=== PATIENT | male | born 1960 | race Caucasian/White ===

== ENCOUNTER 2016-12-13 01:47 | Emergency (ER) | payer SELFPAY ==
[2016-12-13] MEDS ORDERED: ONDANSETRON HCL INJ/PF 4 MG/2 ML SDV IV ONE (04:05)
[2016-12-13] MEDS ORDERED: MORPHINE SULFATE 10 MG/ML INJ IV ONE ×3 (04:05→08:21)
[2016-12-13] MEDS ORDERED: NORMAL SALINE 1000 ML 1,000 ML IV ONE (04:05)
--- NOTE | 2016-12-13 04:09 | ER Document Report ---
ED General - General Chief Complaint: Constipation Stated Complaint: ABDOMINAL PAIN Time Seen by Provider: 12/13/16 03:59 Notes: Patient is a 56-year-old male presents with complaint of abdominal pain and feels as if his ostomy is obstructed again. He has history of an ostomy that was placed 5 years ago. He says that he had surgery at [facility]. He is unsure exactly the reason why the surgery was performed. He had complications afterwards and developed an ostomy. Patient then moved to [place]. He has been living in [place] for several years. He had a obstruction performed twice wipe in [place]. One time it was relieved with NG tube and admission. The other time he had to have revision of his colostomy due to a hernia that was causing obstruction. That revision was performed 1 year ago. He has been doing well until last 24 hours. The last 24 hours she has developed a lot of abdominal distention and vomiting and pain and says he feels as if he is obstructed again. He denies any fevers. No blood in ostomy bag. No other complaints at this time. TRAVEL OUTSIDE OF THE [place] IN LAST 30 DAYS: No - Related Data Allergies/Adverse Reactions: No Known Allergies Allergy (Unverified 12/13/16 01:57) Past Medical History - Social History Smoking Status: Unknown if Ever Smoked Frequency of alcohol use: None Drug Abuse: None Family History: Reviewed & Not Pertinent Patient has suicidal ideation: No Patient has homicidal ideation: No Renal/ Medical History: Denies: Hx Peritoneal Dialysis Review of Systems - Review of Systems Notes: My Normal Review Basic REVIEW OF SYSTEMS: CONSTITUTIONAL : Denies fever, chills, or sweats. Denies recent illness. CARDIOVASCULAR: Denies chest pain. RESPIRATORY: Denies cough, cold, or chest congestion. Denies shortness of breath, difficulty breathing, or wheezing. GASTROINTESTINAL: Moderate abdominal pain. Vomiting. MUSCULOSKELETAL: Denies neck or back pain or joint pain or swelling. SKIN: Denies rash or skin lesions. NEUROLOGICAL: Denies altered mental status or loss of consciousness. Denies headache. Denies weakness or paralysis or loss of use of either side. Denies problems with gait or speech. Denies sensory or motor loss. ALL OTHER SYSTEMS REVIEWED AND NEGATIVE. Physical Exam - Vital signs Vitals: Temp Pulse Resp BP Pulse Ox 97.7 F 73 20 137/93 H 100 12/13/16 01:55 12/13/16 01:55 12/13/16 01:55 12/13/16 01:55 12/13/16 01:55 - Notes Notes: General Appearance: Well nourished, alert, cooperative, no acute distress, mild to moderate obvious discomfort. Vitals: reviewed, See vital signs table. Head: no swelling or tenderness to the head Eyes: PERRL, EOMI, Conjuctiva clear Mouth: No decreasd moisture Lungs: No wheezing, No rales, No rhonci, No accessory muscle use, good air exchange bilaterally. Heart: Normal rate, Regular rythm, No murmur, no rub Abdomen: Patient does have abdominal distention that is mainly near the colostomy itself. Patient does have colostomy on the right side of the abdomen. He does have liquid stool coming from the colostomy. There is no obvious blood in the colostomy bag. Does have pain to palpation just medial to colostomy bag where his distention is. Abdomen is not firm. Extremities: strength 5/5 in all extremities, good pulses in all extremities, no swelling or tenderness in the extremities, no edema. Skin: warm, dry, appropriate color, no rash Neuro: speech clear, oriented x 3, normal affect, responds appropriately to questions. Course - Re-evaluation Re-evalutation: 12/13/16 06:16 Patient has a small bowel obstruction as expected clinically. I have attempted to place an NG tube however there is just seems to be some obstruction when the NG tube hits around 50 cm. I have ordered an x-ray to confirm the current placement of the NG tube. I have called the general surgeon, Dr. Puentes, agrees to come evaluate the patient. 12/13/16 06:36 KUB shows that the NG tube appears to be at the esophageal gastric junction however I am still having difficulty getting it to pass this area. I will speak with the surgeon about this. 12/13/16 06:56 Dr. Puentes did come evaluate the patient. This time he feels that the patient should go back to [facility] where his initial surgery was performed. I have called [facility] and I am awaiting to hear back from the surgeon relations specialist. I talked to Dr. Dhaval Carlin the NG tube and the fact that we are having hard time getting past the GE junction. I also tried to pull back some and pressure for to get past the GE junction. I am still unsuccessful in getting it past the GE junction. 12/13/16 07:[address] speak with Dr. Winkler, general surgeon at [facility], who agrees to accept the patient for transfer. 12/13/16 07:30 Currently his call back and said to be in ED DDD transfer. Patient is accepted by Dr. Winkler for transfer. I did still speak with Dr. Miky Trivedi, ER physician, to make him aware that the patient is coming. Transport will be arranged and patient will be transferred. Informed patient of the transfer and he is understanding and agreeable to it. - Vital Signs Vital signs: Temp Pulse Resp BP Pulse Ox 97.7 F 73 20 137/93 H 100 12/13/16 01:55 12/13/16 01:55 12/13/16 01:55 12/13/16 01:55 12/13/16 01:55 - Laboratory Result Diagrams: 12/13/16 04:37 12/13/16 04:37 Laboratory results interpreted by me: 12/13/16 12/13/16 04:37 04:37 MCV 101 H MCH 35.4 H RDW 14.8 H Seg Neutrophils % 86.1 H Lymphocytes % 6.1 L Absolute Neutrophils 8.7 H Glucose 147 H Direct Bilirubin 0.5 H Discharge - Discharge Clinical Impression: Small bowel obstruction Condition: Stable Disposition: [facility]
[2016-12-13 04:53] LABS: ABSOLUTE EOSINOPHILS # (AUTO) 0.1 10^3/uL (0.0-0.6); ABSOLUTE LYMPHOCYTES (AUTO) 0.6 10^3/uL (0.5-4.7); ABSOLUTE MONOCYTES (AUTO) 0.7 10^3/uL (0.1-1.4); ABSOLUTE NEUT (AUTO) 8.7 10^3/uL (1.7-8.2); BASOPHILS % (AUTO) 0.4 % (0-2); EOSINOPHILS % (AUTO) 0.8 % (0-6); HEMOGLOBIN 15.4 g/dL (13.5-17.0); HGB HCT DIFFERENCE 2.2; LYMPHOCYTES % (AUTO) 6.1 % (13-45); MEAN CORPUSCULAR HEMOGLOBIN 35.4 pg (27.0-33.4); MEAN CORPUSCULAR HGB CONC 35.1 g/dL (32.0-36.0); MEAN CORPUSCULAR VOLUME 101 fl (80-97); MONOCYTES % (AUTO) 6.6 % (3-13); RED BLOOD COUNT 4.35 10^6/uL (4.35-5.55); RED CELL DISTRIBUTION WIDTH 14.8 % (11.5-14.0); SEGMENTED NEUTROPHILS % (AUTO) 86.1 % (42-78); WHITE BLOOD COUNT 10.2 10^3/uL (4.0-10.5)
[2016-12-13 05:03] LABS: ALANINE AMINOTRANSFERASE 53 U/L (21-72); ALBUMIN 4.6 g/dL (3.5-5.0); ALKALINE PHOSPHATASE 60 U/L (38-126); ANION GAP 14 (5-19); ASPARTATE AMINO TRANSFERASE 45 U/L (17-59); BILIRUBIN,DIRECT 0.5 mg/dL (0.0-0.4); BLOOD UREA NITROGEN 13 mg/dL (7-20); CALCIUM 10.1 mg/dL (8.4-10.2); CARBON DIOXIDE 24 mmol/L (22-30); CHLORIDE 100 mmol/L (98-107); CREATININE RESULT 1.12 mg/dL (0.52-1.25); GLUCOSE 147 mg/dL (75-110); POTASSIUM 4.5 mmol/L (3.6-5.0); SODIUM 137.6 mmol/L (137-145)
[2016-12-13] MEDS ORDERED: LIDOCAINE 2% JELLY 30 ML TUBE TOP ONE (05:43)
[2016-12-13] MEDS ORDERED: LIDOCAINE 2% INJ-PF (20 MG/ML) 10 ML AMPUL NEB ONE (05:44)
--- NOTE | 2016-12-13 06:00 | RADIOLOGY REPORT (SQ) ---
EXAM DESCRIPTION: CT ABD/PELVIS WITH IV ONLY COMPLETED DATE/TIME: 12/13/2016 5:38 am REASON FOR STUDY: abdominal pain, possible obstruction COMPARISON: None. TECHNIQUE: CT scan of the abdomen and pelvis performed using helical scanning technique with dynamic intravenous contrast injection. No oral contrast. Images reviewed with lung, soft tissue, and bone windows. Reconstructed coronal and sagittal MPR images reviewed. Delayed images for evaluation of the urinary system also acquired. All images stored on PACS. All CT scanners at this facility use dose modulation, iterative reconstruction, and/or weight based d osing when appropriate to reduce radiation dose to as low as reasonably achievable (ALARA). [facility]: Dose Right [facility]: CareDose [facility]: Dose Right [facility]: Teradose 4D [facility]: [employer] CONTRAST TYPE AND DOSE: contrast/concentration: Isovue 370.00 mg/ml; Total Contrast Delivered: 65.0 ml; Total Saline Delivered: 65.0 ml RENAL FUNCTION: Creatinine 1.1. RADIATION DOSE: Up-to-date CT equipment and radiation dose reduction techniques were employed. CTDIv ol: 5.8 mGy. DLP: 605 mGy-cm.. LIMITATIONS: None. FINDINGS: LOWER CHEST: No significant findings. No nodules or infiltrates. LIVER: Normal size. No masses. No dilated ducts. SPLEEN: Normal size. No focal lesions. PANCREAS: No masses. No significant calcifications. No adjacent inflammation or peripancreatic fluid collections. Pancreatic duct not dilated. GALLBLADDER: No identified stones by CT criteria. No inflammatory changes to suggest cholecystitis. ADRENAL GLANDS: No significant masses or asymmetry. RIGHT KIDNEY AND URETER: No solid masses. No significant calcifications. No hydronephrosis or hyd roureter. LEFT KIDNEY AND URETER: No solid masses. No significant calcifications. No hydronephrosis or hydr oureter. AORTA AND VESSELS: No aneurysm. No dissection. Renal arteries, SMA, celiac without stenosis. RETROPERITONEUM: No retroperitoneal adenopathy, hemorrhage or masses. BOWEL AND PERITONEAL CAVITY: 6.3 cm in diameter fluid distention extensively of the small bowel with air-fluid levels. No zone of transition is identified. Bowel ostium knee of the right lower abdomin al quadrant, likely ileum. APPENDIX: Normal. PELVIS: No mass. No free fluid. Normal bladder. ABDOMINAL WALL: No masses. Small left inguinal herniation involves only fat. BONES: No significant or acute findings. OTHER: No other significant finding. IMPRESSION: Severe small bowel obstruction pattern. No significant free fluid and no free air. TECHNICAL DOCUMENTATION: JOB ID: [id number] Quality ID # [id number]: Final reports with documentation of one or more dose reduction techniques (e.g., Au tomated exposure control, adjustment of the mA and/or kV according to patient size, use of iterative reconstruction technique) 2010 [employer]- All Rights Reserved
[2016-12-13] MEDS ORDERED: MORPHINE SULFATE 10 MG/ML INJ ONE (06:42)
--- NOTE | 2016-12-13 06:59 | RADIOLOGY REPORT (SQ) ---
EXAM DESCRIPTION: KUB/ABDOMEN (SINGLE VIEW) COMPLETED DATE/TIME: 12/13/2016 6:38 am REASON FOR STUDY: ng placement COMPARISON: None. NUMBER OF VIEWS: One view. TECHNIQUE: Supine radiographic image of the abdomen acquired. LIMITATIONS: None. FINDINGS: BOWEL GAS PATTERN: Normal bowel gas pattern. No dilated loops. CALCIFICATIONS: No suspicious calcifications. SOFT TISSUES: No gross mass or suggestion of organomegaly. HARDWARE: Tip of an NG tube is at the expected gastroesophageal junction ; consider 5 cm advancement. Small bowel obstruction pattern with diameters measuring up to 6.1 cm in the left paracentral abdom en. BONES: No acute fracture. No worrisome bone lesions. Mild osteoarthritis. OTHER: Retained contrast within the urinary bladder. IMPRESSION: Small bowel obstruction pattern. NG tube tip at the gastroesophageal junction. TECHNICAL DOCUMENTATION: JOB ID: [id number] [employer]- All Rights Reserved
--- NOTE | 2016-12-13 07:01 | RADIOLOGY REPORT (SQ) ---
EXAM DESCRIPTION: CHEST SINGLE VIEW COMPLETED DATE/TIME: 12/13/2016 6:38 am REASON FOR STUDY: ng placement COMPARISON: None. EXAM PARAMETERS: NUMBER OF VIEWS: One view. TECHNIQUE: Single frontal radiographic view of the chest acquired. RADIATION DOSE: NA LIMITATIONS: As below. FINDINGS: LUNGS AND PLEURA: No opacities, masses or pneumothorax. No pleural effusion. Left costoph renic angle is clipped off the image. MEDIASTINUM AND HILAR STRUCTURES: No masses. Contour normal. HEART AND VASCULAR STRUCTURES: Heart normal in size. Normal vasculature. BONES: No acute findings. HARDWARE: Tip of an NG tube is at the gastroesophageal junction, partially obscured ; consider 6 cm a dvancement. OTHER: No other significant finding. IMPRESSION: NG tube tip at the gastroesophageal junction. Limitation. TECHNICAL DOCUMENTATION: JOB ID: [id number]
[2016-12-13 10:21] VITALS: BP 103/71
== END 2016-12-13 10:22 | disposition short-term general hospital (02) ==
LOC: ER 01:47
DX: K56.60 Unspecified intestinal obstruction (principal); K59.00 Constipation, unspecified; R10.9 Unspecified abdominal pain; Z98.890 Other specified postprocedural states
CPT/HCPCS: 96376; 99285; 96361; 96374; 96375; 36415; 83605; 85025; 80053; 71010; 74000; 74177; J2270; J2405; J7030; J3490

== ENCOUNTER 2017-03-27 08:23 | Inpatient (IN) | payer MEDICAID ==
--- NOTE | 2017-03-27 08:37 | ER Document Report ---
ED General - General Stated Complaint: ABDOMINAL PAIN Time Seen by Provider: 03/27/17 08:37 Mode of Arrival: Medic Information source: Patient, Relative - osito Notes: 56 yo male brought in by EMS due to falling face forward in living room, osito heard the thud, and found him foaming at the mouth not responsive with both arms flexed inward. Before she had gone into the kitchen he had clutched is chest and stated it hurt into his left shoulder. She states he drinks all day long every day. He says 1 beer this morning. No vomiting or diarrhea, rilq colostomy bag with green stool in it. Hx CVA left sided weakness 5 years ago. c/ o epigartic abdominal pain and mid thoracic back pain. TRAVEL OUTSIDE OF THE [place] IN LAST 30 DAYS: No - Related Data Allergies/Adverse Reactions: No Known Allergies Allergy (Verified 03/27/17 09:14) Home Medications: Current Home Medications No Home Medications 03/27/17 [History] Past Medical History - General Information source: Patient, Relative - osito - Social History Smoking Status: Current Every Day Smoker Frequency of alcohol use: Heavy Drug Abuse: None Lives with: Family - osito Family History: Reviewed & Not Pertinent Neurological Medical History: Reports: Hx Cerebrovascular Accident - 5 yr ago Renal/ Medical History: Denies: Hx Peritoneal Dialysis GI Medical History: Reports: Other - bowel obstructions, colostomy Psychiatric Medical History: Reports: Hx Depression Past Surgical History: Reports: Hx Bowel Surgery Review of Systems - Review of Systems Constitutional: No symptoms reported EENT: No symptoms reported Cardiovascular: No symptoms reported Respiratory: No symptoms reported Gastrointestinal: No symptoms reported Genitourinary: No symptoms reported Male Genitourinary: No symptoms reported Musculoskeletal: See HPI Skin: No symptoms reported Hematologic/Lymphatic: No symptoms reported Neurological/Psychological: See HPI Physical Exam - Vital signs Vitals: Temp Pulse Resp BP Pulse Ox 97.6 F 110 H 28 H 145/93 H 96 03/27/17 08:32 03/27/17 08:32 03/27/17 08:32 03/27/17 08:32 03/27/17 08:32 Interpretation: Tachycardic - Notes Notes: chronically ill appearing, disheveled - General General appearance: Appears well, Lethargic In distress: None - HEENT Head: Normocephalic, Atraumatic, Other - ecchyosis left temporal face, dried blood both lips Eyes: Normal Conjunctiva: No: Normal Pupils: PERRL Mouth/Lips: Other - dried blood on lips, decayed teeth non loose, can't find source of blood on lips and tongue, pt won't stick out tongue Mucous membranes: Dry Pharynx: Blood in hypopharynx Neck: Supple - non tender - Respiratory Respiratory status: No respiratory distress Chest status: Nontender Breath sounds: Normal Chest palpation: Normal - Cardiovascular Rhythm: Regular Heart sounds: Normal auscultation Murmur: No - Abdominal Inspection: Normal, Other - old scars, colostomy rlq Distension: No distension Bowel sounds: Normal Tenderness: Nontender. No: Tender Organomegaly: No organomegaly - Back Back: Normal, Tender - t8-8 spinous process. No: Deformity/step-off - Extremities General upper extremity: Normal inspection, Nontender, Normal color, Normal ROM , Normal temperature General lower extremity: Normal inspection, Nontender, Normal color, Normal ROM , Normal temperature, Normal weight bearing. No: Joi's sign - Neurological Neuro grossly intact: Yes Cognition: Normal Orientation: AAOx4 Deloris Coma Scale Eye Opening: Spontaneous Deloris Coma Scale Verbal: Oriented Easton Coma Scale Motor: Obeys Commands Easton Coma Scale Total: 15 Speech: Normal Motor strength normal: LUE, RUE, LLE, RLE Sensory: Normal - Psychological Associated symptoms: Normal affect, Normal mood - Skin Skin Temperature: Warm Skin Moisture: Dry Skin Color: Other - niraj Course - Re-evaluation Re-evalutation: 03/27/17 09:[address] Gautam the radiologist to read the CT scan and thinks that the nonhemorrhagic infarct in the left MCA is old which is consistant with the EMS report of old cva 03/27/17 10:59 pt refuses cath urine, c/o mid t spine pain since fall, he is more alert. only 1 beer this am. consulting with dr. lawson for further orders, to determiine the anion gap. called dr. goetz who read the AAS to check on t spine shantell evaluation. 03/27/17 11:01 2nd liter of NS infusing. 03/27/17 12:[address] green for admission, she wants repeat BNP and ABG before determining what admission bed he will need. 03/27/17 13:32 spoke with his neice [phone] who states he is alcoholic, no hx seizures ( she thinks it looks like a seizure this am-foaming at mouth, not responding to voice, shaking extremities) 03/27/17 15:[address] Harry back and she said IMCU bed which has been put on the bed board - Vital Signs Vital signs: Temp Pulse Resp BP Pulse Ox 98.9 F 85 20 134/86 H 94 03/27/17 19:58 03/27/17 19:58 03/27/17 19:58 03/27/17 19:58 03/27/17 19:58 - Laboratory Result Diagrams: 03/27/17 08:55 03/27/17 14:15 Laboratory results interpreted by me: 03/27/17 03/27/17 03/27/17 08:55 08:55 08:55 WBC 20.0 H MCV 104 H MCH 34.2 H Seg Neuts % (Manual) 89 H Lymphocytes % (Manual) 4 L Abs Neuts (Manual) 18.4 H PT 16.0 H APTT 36.9 H Carbonic Acid ABG pH ABG pCO2 ABG pO2 ABG HCO3 ABG Total CO2 VBG pH VBG HCO3 Chloride Carbon Dioxide 7 L* Anion Gap 30 H Creatinine 1.50 H Est GFR ( Amer) 59 L Est GFR (Non-Af Amer) 49 L Glucose 167 H Lactic Acid Calcium Magnesium Ammonia Urine Protein Urine Blood Urine Osmolality Salicylates 03/27/17 03/27/17 03/27/17 08:55 08:55 10:26 WBC MCV MCH Seg Neuts % (Manual) Lymphocytes % (Manual) Abs Neuts (Manual) PT APTT Carbonic Acid ABG pH ABG pCO2 ABG pO2 ABG HCO3 ABG Total CO2 VBG pH VBG HCO3 Chloride Carbon Dioxide Anion Gap Creatinine Est GFR ( Amer) Est GFR (Non-Af Amer) Glucose Lactic Acid 5.0 H Calcium Magnesium 3.0 H Ammonia Urine Protein Urine Blood Urine Osmolality Salicylates < 1.0 L 03/27/17 03/27/17 03/27/17 11:18 11:18 11:25 WBC MCV MCH Seg Neuts % (Manual) Lymphocytes % (Manual) Abs Neuts (Manual) PT APTT Carbonic Acid ABG pH ABG pCO2 ABG pO2 ABG HCO3 ABG Total CO2 VBG pH 7.20 L VBG HCO3 14.5 L Chloride Carbon Dioxide Anion Gap Creatinine Est GFR ( Amer) Est GFR (Non-Af Amer) Glucose Lactic Acid Calcium Magnesium Ammonia Urine Protein 30 H Urine Blood MODERATE H Urine Osmolality 268 L Salicylates 03/27/17 03/27/17 03/27/17 11:25 13:55 14:15 WBC MCV MCH Seg Neuts % (Manual) Lymphocytes % (Manual) Abs Neuts (Manual) PT APTT Carbonic Acid 0.86 L ABG pH 7.32 L ABG pCO2 28.7 L ABG pO2 77.0 L ABG HCO3 14.4 L ABG Total CO2 15.3 L VBG pH VBG HCO3 Chloride 115 H Carbon Dioxide 15 L Anion Gap Creatinine Est GFR ( Amer) Est GFR (Non-Af Amer) Glucose Lactic Acid Calcium 7.9 L Magnesium Ammonia < 8.7 L Urine Protein Urine Blood Urine Osmolality Salicylates - EKG Interpretation by Co EKG shows normal: Sinus rhythm Rate: Tachycardia Rhythm: NSR Additional EKG results interpreted by ia: 03/27/17 09:57 qtc [id number] Discharge - Discharge Clinical Impression: High anion gap metabolic acidosis, sepsis, left apical cavity lung mass, right lung spiculated nodule Syncope Qualifiers: Syncope type: unspecified Qualified Code(s): R55 - Syncope and collapse Leukocytosis Qualifiers: Leukocytosis type: unspecified Qualified Code(s): D72.829 - Elevated white blood cell count, unspecified Compression fx, thoracic spine Qualifiers: Encounter type: initial encounter Fracture type: closed Qualified Code(s): S22.000A - Wedge compression fracture of unspecified thoracic vertebra, initial encounter for closed fracture Condition: Fair Disposition: ADMITTED INPATIENT Admitting Provider: Hospitalist Unit Admitted: [facility]
[2017-03-27] MEDS ORDERED: NORMAL SALINE 1000 ML 500 ML IV ONE (08:38)
[2017-03-27] MEDS ORDERED: ONDANSETRON HCL INJ/PF 4 MG/2 ML SDV IV ONE (08:39)
[2017-03-27] MEDS ORDERED: DIPH/PERTUSS(ACELL)/TETANUS VAC/PF 0.5 ML SYR (>=10YO) IM ONE (08:50)
--- NOTE | 2017-03-27 09:23 | EKG REPORT ---
SEVERITY:- OTHERWISE NORMAL ECG - SINUS TACHYCARDIA : Confirmed by: Komal Diaz 27-Mar-2017 09:22:53
[2017-03-27 09:27] LABS: HEMATOCRIT 49.8 % (37.9-51.0); HEMOGLOBIN 16.5 g/dL (13.5-17.0); MEAN CORPUSCULAR HEMOGLOBIN 34.2 pg (27.0-33.4); MEAN CORPUSCULAR HGB CONC 33.1 g/dL (32.0-36.0); MEAN CORPUSCULAR VOLUME 104 fl (80-97); PLATELET COUNT 249 10^3/uL (150-450); RED BLOOD COUNT 4.81 10^6/uL (4.35-5.55); RED CELL DISTRIBUTION WIDTH 13.5 % (11.5-14.0)
[2017-03-27 09:35] LABS: PARTIAL THROMBOPLASTIN TIME 36.9 SEC (23.5-35.8)
[2017-03-27 09:40] LABS: ALANINE AMINOTRANSFERASE 41 U/L (21-72); ALBUMIN 4.7 g/dL (3.5-5.0); ALKALINE PHOSPHATASE 97 U/L (38-126); ASPARTATE AMINO TRANSFERASE 44 U/L (17-59); BILIRUBIN,DIRECT 0.4 mg/dL (0.0-0.4); BILIRUBIN,TOTAL 0.4 mg/dL (0.2-1.3); BLOOD UREA NITROGEN 13 mg/dL (7-20); CALCIUM 9.5 mg/dL (8.4-10.2); CHLORIDE 107 mmol/L (98-107); CREATINE KINASE 146 U/L (55-170); GLUCOSE 167 mg/dL (75-110); LIPASE 141.1 U/L (23-300); POTASSIUM 3.7 mmol/L (3.6-5.0); TOTAL PROTEIN 8.2 g/dL (6.3-8.2)
[2017-03-27 09:41] LABS: ALCOHOL < 10 mg/dL (NONE DETECTED)
[2017-03-27 09:50] LABS: CREATINE KINASE MB 2.38 ng/mL (<4.55)
[2017-03-27 09:51] LABS: ABSOLUTE LYMPHOCYTES# (MANUAL) 0.8 10^3/uL (0.5-4.7); ABSOLUTE MONOCYTES # (MANUAL) 0.6 10^3/uL (0.1-1.4); ABSOLUTE NEUTROPHILS# (MANUAL) 18.4 10^3/uL (1.7-8.2); BAND NEUTROPHILS % (MANUAL) 3 % (3-5); BASOPHILS % (MANUAL) 0 % (0-2); EOSINOPHILS % (MANUAL) 1 % (0-6); LYMPHOCYTES % (MANUAL) 4 % (13-45); MONOCYTES % (MANUAL) 3 % (3-13); SEGMENTED NEUTROPHILS % (MAN) 89 % (42-78); TOTAL CELLS COUNTED 100
[2017-03-27 09:52] LABS: PLATELET COMMENT ADEQUATE; TOXIC GRANULATION SLIGHT
[2017-03-27 09:53] LABS: TROPONIN I < 0.012 ng/mL
--- NOTE | 2017-03-27 09:53 | RADIOLOGY REPORT (SQ) ---
EXAM DESCRIPTION: CT HEAD WITHOUT COMPLETED DATE/TIME: 03/27/2017 9:42 am REASON FOR STUDY: fall COMPARISON: None. TECHNIQUE: Axial images acquired through the brain without intravenous contrast. Images reviewed wi th bone, brain and subdural windows. Images stored on PACS. All CT scanners at this facility use dose modulation, iterative reconstruction, and/or weight based d osing when appropriate to reduce radiation dose to as low as reasonably achievable (ALARA). [facility]: Dose Right [facility]: CareDose [facility]: Dose Right [facility]: Teradose 4D [facility]: [employer] RADIATION DOSE: CT Rad equipment meets quality standard of care and radiation dose reduction techniq ues were employed. CTDIvol: 63.6 mGy. DLP: 1163 mGy-cm. mGy. LIMITATIONS: None. FINDINGS: VENTRICLES: Normal size and contour. CEREBRUM: Geographic low attenuation in the left MCA territory, more extensive in the left parietal l obe. No evidence of hemorrhage or mass effect. There is ipsilateral enlargement of the left occipita l horn suggesting more chronic infarction. No extra-axial fluid collection. CEREBELLUM: No masses. No hemorrhage. No alteration of density. No evidence for acute infarction. EXTRAAXIAL SPACES: No fluid collections. No masses. ORBITS AND GLOBE: No intra- or extraconal masses. Normal contour of globe without masses. CALVARIUM: No fracture. PARANASAL SINUSES: No fluid or mucosal thickening. SOFT TISSUES: No mass or hematoma. OTHER: No other significant finding. IMPRESSION: Large subacute/ chronic nonhemorrhagic infarct left MCA territory. EVIDENCE OF ACUTE STROKE: See above. LEFT MCA COMMENT: Quality ID # [id number]: Final reports with documentation of one or more dose reduction techniques (e.g., Automated exposure control, adjustment of the mA and/or kV according to patient size, use of iterative reconstruction technique) TECHNICAL DOCUMENTATION: JOB ID: [id number] [employer]- All Rights Reserved
[2017-03-27 10:03] LABS: ANION GAP 30 (5-19)
[2017-03-27 10:05] LABS: CARBON DIOXIDE 7 mmol/L (22-30)
[2017-03-27] MEDS ORDERED: NORMAL SALINE 1000 ML 1,000 ML IV ONE ×3 (10:06→10:13)
--- NOTE | 2017-03-27 10:32 | RADIOLOGY REPORT (SQ) ---
EXAM DESCRIPTION: ACUTE ABDOMEN SERIES COMPLETED DATE/TIME: 03/27/2017 9:48 am REASON FOR STUDY: epigastric abd pain COMPARISON: None. NUMBER OF VIEWS: Three views. TECHNIQUE: supine abdomen and upright/decubitus abdomen radiographic images acquired. LIMITATIONS: Difficulty positioning. FINDINGS: CHEST; nothing acute. The lungs are clear. FREE AIR: None. No abnormal gas collections. BOWEL GAS PATTERN: Nonobstructive pattern. No dilated loops or air fluid levels. CALCIFICATIONS: Aortic calcification without obvious aneurysm. HARDWARE: Colostomy right lower abdomen. SOFT TISSUES: No gross mass or suggestion of organomegaly. BONES: No acute fracture. No worrisome bone lesions. OTHER: None. IMPRESSION: Nothing acute. No bowel dilatation. Small amount of fecal material. TECHNICAL DOCUMENTATION: JOB ID: [id number] [employer]- All Rights Reserved
[2017-03-27] MEDS ORDERED: MORPHINE SULFATE 10 MG/ML INJ IV ONE ×2 (10:59→11:43)
[2017-03-27] MEDS ORDERED: CEFTRIAXONE 1 GM/D5W RTU 1 GM/50 ML RTUPB IV ONE (11:02)
[2017-03-27 11:36] LABS: APPEARANCE,URINE SLIGHTLY-CLOUDY; BILIRUBIN,URINE NEGATIVE (NEGATIVE); COLOR,URINE YELLOW; GLUCOSE, URINE NEGATIVE (NEGATIVE); KETONES,URINE NEGATIVE (NEGATIVE); LEUKOCYTE ESTERASE,URINE NEGATIVE (NEGATIVE); NITRITE,URINE NEGATIVE (NEGATIVE); PROTEIN,URINE 30 mg/dL (NEGATIVE); URINE SPECIFIC GRAVITY 1.005; UROBILINOGEN,URINE NEGATIVE mg/dL (<2.0)
[2017-03-27 11:40] LABS: VENOUS BLOOD BASE EXCESS -12.7 mmol/L; VENOUS BLOOD HCO3 14.5 mmol/L (20-32); VENOUS BLOOD PCO2 37.9 mmHg (35-63); VENOUS BLOOD PH 7.2 (7.30-7.42)
[2017-03-27 11:52] LABS: URINE AMPHETAMINES SCREEN NEGATIVE; URINE BARBITURATES SCREEN NEGATIVE; URINE BENZODIAZEPINES SCREEN NEGATIVE; URINE COCAINE SCREEN NEGATIVE; URINE MARIJUANA (THC) SCREEN NEGATIVE; URINE METHADONE SCREEN NEGATIVE; URINE PHENCYCLIDINE SCREEN NEGATIVE
--- NOTE | 2017-03-27 12:20 | RADIOLOGY REPORT (SQ) ---
EXAM DESCRIPTION: CT THORACIC SPINE WITHOUT COMPLETED DATE/TIME: 03/27/2017 11:42 am REASON FOR STUDY: back pain after fall COMPARISON: None. TECHNIQUE: Axial images acquired through the thoracic spine without intravenous contrast. Images re viewed with lung, soft tissue and bone windows. Reconstructed coronal and sagittal MPR images review ed. Images stored on PACS. All CT scanners at this facility use dose modulation, iterative reconstruction, and/or weight based d osing when appropriate to reduce radiation dose to as low as reasonably achievable (ALARA). [facility]: Dose Right [facility]: CareDose [facility]: Dose Right [facility]: Teradose 4D [facility]: [employer] RADIATION DOSE: CT Rad equipment meets quality standard of care and radiation dose reduction techniq ues were employed. CTDIvol: 18.1 mGy. DLP: 759 mGy-cm. mGy. LIMITATIONS: None. FINDINGS: Bones are osteopenic. There is a compression fracture of T9 approximately 50% height loss . No significant retropulsion. Alignment is anatomic. There is a 3.1 x 4.0 cm cavitary mass in the left apex. 1.5 cm spiculated nodule in the right upper lobe. IMPRESSION: 1. Recent compression fracture of T9. 2. Left apical lung mass. TECHNICAL DOCUMENTATION: JOB ID: [id number] Quality ID # [id number]: Final reports with documentation of one or more dose reduction techniques (e.g., Au tomated exposure control, adjustment of the mA and/or kV according to patient size, use of iterative reconstruction technique) 2010 [employer]- All Rights Reserved
[2017-03-27 14:36] LABS: ANION GAP 10 (5-19); BLOOD UREA NITROGEN 12 mg/dL (7-20); CALCIUM 7.9 mg/dL (8.4-10.2); CARBON DIOXIDE 15 mmol/L (22-30); CHLORIDE 115 mmol/L (98-107); GLUCOSE 99 mg/dL (75-110); POTASSIUM 3.7 mmol/L (3.6-5.0); SODIUM 139.9 mmol/L (137-145)
[2017-03-27 15:00] LABS: ARTERIAL BLOOD BASE EXCESS -10.2 mmol/L; ARTERIAL BLOOD FIO2 21%; ARTERIAL BLOOD H2CO3 0.86 mmol/L (1.05-1.35); ARTERIAL BLOOD HCO3 14.4 mmol/L (20-26); ARTERIAL BLOOD O2 SATURATION 94.6 % (94-98); ARTERIAL BLOOD PCO2 28.7 mmHg (35-45); ARTERIAL BLOOD PH 7.32 (7.35-7.45); ARTERIAL BLOOD TOTAL CO2 15.3 mmol/L (23-27)
--- NOTE | 2017-03-27 15:13 | PDOC H&P ---
History of Present Illness Patient complains of: Patient fell at home History of Present Illness: CLAYTON LAWSON is a 56 year old male. This morning, he was in the living room. His niece was in another room and heard a thump. When she came to check on the patient he had fallen face down. He was noted to be foaming at the mouth. The patient thought that he had another stroke. Apparently, this happened when he had a stroke 5 years ago. Please note that the patient is a very poor historian. The patient was brought into the emergency department and found to have a leukocytosis, lactic acidosis and non-anion gap metabolic acidosis. He has a fairly new compression fracture and evidence of a left apical lung mass and right upper lobe cavitary lesion. These findings are concerning for malignancy and/or infection to include tuberculosis. Therefore, the patient has been isolated. Apparently, the patient drinks all day long. He told me that he drinks 1 beer once in a while but according to his niece he drinks from 4:00 in the afternoon all throughout the evening. The patient states that he has been very depressed since his stroke. He has had residual right arm weakness. He has trouble understanding and articulating his speech. He lost his job because of the stroke. The patient was born in the [facility]. He has never been in fdc. He does not have any known TB contacts. He has not traveled outside of the [place]. He denies fevers, chills, night sweats, weight loss and hemoptysis. In fact, he denies having a cough at all. Past Medical History Neurological Medical History: Reports: Ischemic CVA Past Surgical History Past Surgical History: Reports: Colostomy Social History Smoking Status: Unknown if Ever Smoked - Advance Directive Resuscitation Status: Do Not Resuscitate Surrogate healthcare decision maker:: The patient told me that he is DO NOT RESUSCITATE. In the event that he is incapacitated he would like his niece, Eugenia to be his decision maker. Family History Family History: Reviewed & Not Pertinent Parental Family History Reviewed: Yes - Unknown Children Family History Reviewed: Unknown Sibling(s) Family History Reviewed.: Unknown - Patient was unable to give me any family history. Medication/Allergy Home Medications: No Home Medications 03/27/17 Allergies/Adverse Reactions: No Known Allergies Allergy (Verified 03/27/17 09:14) Review of Systems Constitutional: ABSENT: as per HPI, anorexia, chills, fatigue, fever(s), headache(s), night sweats, weakness, weight gain, weight loss, other Eyes: ABSENT: as per HPI, visual disturbances, other Ears: ABSENT: as per HPI, hearing changes, other Nose, Mouth, and Throat: ABSENT: as per HPI, headache(s), mouth pain, sore throat, vertigo, other Breasts: ABSENT: as per HPI, other Cardiovascular: ABSENT: as per HPI, chest pain, dyspnea on exertion, edema, orthropnea, palpitations, other Respiratory: ABSENT: as per HPI, cough, dyspnea, hemoptysis, sputum, other Gastrointestinal: ABSENT: as per HPI, abdominal pain, bloating, coffee ground emesis, constipation, diarrhea, dysphagia, heartburn, hematemesis, hematochezia , melena, nausea, vomiting, other Genitourinary: ABSENT: as per HPI, difficulty urinating, dysuria, hematuria, nocturia, other Musculoskeletal: PRESENT: back pain Integumentary: ABSENT: as per HPI, diaphoresis, erythema, lesions, pruritus, rash, wounds, other Neurological: PRESENT: abnormal speech, confusion, lack of coordination, memory loss, weakness Psychiatric: ABSENT: as per HPI, anxiety, depression, hallucinations, homidical ideation, suicidal ideation, other Endocrine: ABSENT: as per HPI, cold intolerance, flushing, heat intolerance, menstrual abnormalities, polydipsia, polyphagia, polyuria, other Hematologic/Lymphatic: ABSENT: as per HPI, easy bleeding, easy bruising, lymphadenopathy, other Allergic/Immunologic: ABSENT: as per HPI, seasonal rhinorrhea, other Physical Exam Vital Signs: Temp Pulse Resp BP Pulse Ox 97.6 F 110 H 23 H 144/89 H 97 03/27/17 08:32 03/27/17 08:32 03/27/17 12:37 03/27/17 12:37 03/27/17 12:37 Intake & Output 03/26/17 03/27/17 03/28/17 06:59 06:59 06:59 Weight 79 kg Additional comments: The patient appears to be much older than the stated age. He is disheveled. He does appear to be in generalized poor health. He is thin but not cachectic. His facial appearance is normal with the exception of dried blood on his lips. Cranial nerves II through XII are intact. His oropharynx demonstrates poor dentition. He also had appears to have some verrucous lesions on the upper palate. The patient's lungs are clear. There are clear anteriorly and posteriorly. His cardiac exam demonstrates a regular rate and rhythm without murmurs, gallops or rubs. The abdomen demonstrates a colostomy bag with stool in it. The abdomen is very soft. Bowel sounds are noted. He does not have guarding or rebound noted and there are no hernias or masses present. The patient's lower extremities are warm to touch. No pitting edema is present. The skin is warm, dry and intact without lesions or rashes. The patient has residual right upper extremity weakness. His sensation appears to be intact. Results Laboratory Results: 03/27/17 08:55 03/27/17 14:15 03/27/17 03/27/17 03/27/17 08:55 08:55 08:55 WBC 20.0 H RBC 4.81 Hgb 16.5 Hct 49.8 MCV 104 H MCH 34.2 H MCHC 33.1 RDW 13.5 Plt Count 249 Seg Neutrophils % Not Reportable Lymphocytes % Not Reportable Monocytes % Not Reportable Eosinophils % Not Reportable Basophils % Not Reportable Absolute Neutrophils Not Reportable Absolute Lymphocytes Not Reportable Absolute Monocytes Not Reportable Absolute Eosinophils Not Reportable Absolute Basophils Not Reportable VBG pH VBG pCO2 VBG HCO3 VBG Base Excess Sodium 144.0 Potassium 3.7 Chloride 107 Carbon Dioxide 7 L* Anion Gap 30 H BUN 13 Creatinine 1.50 H Est GFR ( Amer) 59 L Est GFR (Non-Af Amer) 49 L Glucose 167 H Serum Osmolality Lactic Acid Calcium 9.5 Magnesium 3.0 H Total Bilirubin 0.4 AST 44 ALT 41 Alkaline Phosphatase 97 Ammonia Total Protein 8.2 Albumin 4.7 Lipase 141.1 Urine Color Urine Appearance Urine pH Ur Specific Fields Urine Protein Urine Glucose (UA) Urine Ketones Urine Blood Urine Nitrite Ur Leukocyte Esterase Urine WBC (Auto) Urine RBC (Auto) Urine Osmolality 03/27/17 03/27/17 03/27/17 08:55 10:26 10:26 WBC RBC Hgb Hct MCV MCH MCHC RDW Plt Count Seg Neutrophils % Lymphocytes % Monocytes % Eosinophils % Basophils % Absolute Neutrophils Absolute Lymphocytes Absolute Monocytes Absolute Eosinophils Absolute Basophils VBG pH VBG pCO2 VBG HCO3 VBG Base Excess Sodium Potassium Chloride Carbon Dioxide Anion Gap BUN Creatinine Est GFR ( Amer) Est GFR (Non-Af Amer) Glucose Serum Osmolality Cancelled Lactic Acid Cancelled 5.0 H Calcium Magnesium Total Bilirubin AST ALT Alkaline Phosphatase Ammonia Total Protein Albumin Lipase Urine Color Urine Appearance Urine pH Ur Specific Fields Urine Protein Urine Glucose (UA) Urine Ketones Urine Blood Urine Nitrite Ur Leukocyte Esterase Urine WBC (Auto) Urine RBC (Auto) Urine Osmolality 03/27/17 03/27/17 03/27/17 11:18 11:18 11:25 WBC RBC Hgb Hct MCV MCH MCHC RDW Plt Count Seg Neutrophils % Lymphocytes % Monocytes % Eosinophils % Basophils % Absolute Neutrophils Absolute Lymphocytes Absolute Monocytes Absolute Eosinophils Absolute Basophils VBG pH 7.20 L VBG pCO2 37.9 VBG HCO3 14.5 L VBG Base Excess -12.7 Sodium Potassium Chloride Carbon Dioxide Anion Gap BUN Creatinine Est GFR ( Amer) Est GFR (Non-Af Amer) Glucose Serum Osmolality Lactic Acid Calcium Magnesium Total Bilirubin AST ALT Alkaline Phosphatase Ammonia Total Protein Albumin Lipase Urine Color YELLOW Urine Appearance SLIGHTLY-CLOUDY Urine pH 5.0 Ur Specific Fields 1.005 Urine Protein 30 H Urine Glucose (UA) NEGATIVE Urine Ketones NEGATIVE Urine Blood MODERATE H Urine Nitrite NEGATIVE Ur Leukocyte Esterase NEGATIVE Urine WBC (Auto) 2 Urine RBC (Auto) 1 Urine Osmolality 268 L 03/27/17 03/27/17 03/27/17 11:25 11:25 14:15 WBC RBC Hgb Hct MCV MCH MCHC RDW Plt Count Seg Neutrophils % Lymphocytes % Monocytes % Eosinophils % Basophils % Absolute Neutrophils Absolute Lymphocytes Absolute Monocytes Absolute Eosinophils Absolute Basophils VBG pH VBG pCO2 VBG HCO3 VBG Base Excess Sodium 139.9 Potassium 3.7 Chloride 115 H Carbon Dioxide 15 L Anion Gap 10 BUN 12 Creatinine 1.11 Est GFR ( Amer) > 60 Est GFR (Non-Af Amer) > 60 Glucose 99 Serum Osmolality 285 Lactic Acid Calcium 7.9 L Magnesium Total Bilirubin AST ALT Alkaline Phosphatase Ammonia < 8.7 L Total Protein Albumin Lipase Urine Color Urine Appearance Urine pH Ur Specific Fields Urine Protein Urine Glucose (UA) Urine Ketones Urine Blood Urine Nitrite Ur Leukocyte Esterase Urine WBC (Auto) Urine RBC (Auto) Urine Osmolality 03/27/17 03/27/17 08:55 08:55 Creatine Kinase 146 CK-MB (CK-2) 2.38 Troponin I < 0.012 Impressions: Acute Abdomen Series 03/27/17 08:44 IMPRESSION: Nothing acute. No bowel dilatation. Small amount of fecal material. Head CT 03/27/17 08:59 IMPRESSION: Large subacute/ chronic nonhemorrhagic infarct left MCA territory. EVIDENCE OF ACUTE STROKE: See above. LEFT MCA Thoracic Spine CT 03/27/17 11:03 IMPRESSION: 1. Recent compression fracture of T9. 2. Left apical lung mass. Assessment & Plan - Diagnosis (1) Metabolic acidosis Is this a current diagnosis for this admission?: Yes Plan: Patient has a non-anion gap metabolic acidosis. This is likely from gastrointestinal losses. This could also be from a renal tubular acidosis, but I think this is less likely. There may also be a component of an anion gap metabolic acidosis associated with a seizure this morning. This could explain the elevated lactate level. I do not think that the patient presents with sepsis at this time. We will continue to trend his labs. I will stop the normal saline which is likely aggravating the non-anion gap metabolic acidosis. (2) Compression fracture of body of thoracic vertebra Is this a current diagnosis for this admission?: Yes Plan: Patient likely had a recent fracture and aggravated with the fall or had a fracture after the fall. Pain management is essential. (3) Cavitating mass of lung Is this a current diagnosis for this admission?: Yes Plan: Tristin, this is worrisome for malignancy. Tuberculosis is on the differential. Sputum's will be sent for AFB and cytology. Pulmonary will be consulted. I will initiate antibiotics to cover both community-acquired raman and postobstructive raman which will include anaerobes. (4) Lung mass Is this a current diagnosis for this admission?: Yes Plan: See above. (5) CVA, old, cognitive deficits Is this a current diagnosis for this admission?: Yes (6) Seizure Is this a current diagnosis for this admission?: Yes Plan: Certainly, the patient could have had an alcohol withdrawal seizure. I will not empirically begin antiseizure medication unless this recurs. The patient will be on seizure precautions. (7) Fall Is this a current diagnosis for this admission?: Yes Plan: Maintain seizure precautions. Begin physical therapy when appropriate. (8) Alcoholism /alcohol abuse Is this a current diagnosis for this admission?: Yes Plan: Begin folate and thiamine. Monitor for withdrawal. (9) Tobacco abuse Is this a current diagnosis for this admission?: Yes Plan: I will initiate a nicotine patch - Time Time Spent: 50 to 70 Minutes - Inpatient Certification Medical Necessity: Need Close Monitoring Due to Risk of Patient Decompensation, Need For IV Fluids, Need for Neurological Checks, Need for Pain Control, Need for IV Antibiotics - Plan Summary Plan Summary: Patient will be placed on full inpatient status. Clearly, he will require greater than 2 midnights for his evaluation. He will need to be ruled out for tuberculosis before he can be released. Please note that I had a full conversation with the patient regarding his CODE STATUS and he is a DNR.
[2017-03-27] MEDS ORDERED: ONDANSETRON HCL INJ/PF 4 MG/2 ML SDV IV PRN (15:14)
[2017-03-27] MEDS ORDERED: ACETAMINOPHEN 325 MG TABLET PO PRN (15:14)
[2017-03-27] MEDS ORDERED: IPRATROPIUM/ALBUTEROL 0.5-2.5 MG/3 ML AMPUL NEB PRN (15:25)
[2017-03-27] MEDS ORDERED: LORAZEPAM INJ 2 MG/1 ML VIAL IV PRN (15:27)
--- NOTE | 2017-03-27 16:28 | RADIOLOGY REPORT (SQ) ---
EXAM DESCRIPTION: CT CHEST WITHOUT COMPLETED DATE/TIME: 03/27/2017 3:48 pm REASON FOR STUDY: Lung mass COMPARISON: CT thoracic spine dated 03/27/2017. TECHNIQUE: CT scan performed of the chest without intravenous contrast. Images reviewed with lung, soft tissue and bone windows. Reconstructed coronal and sagittal MPR images reviewed. All images st ored on PACS. All CT scanners at this facility use dose modulation, iterative reconstruction, and/or weight based d osing when appropriate to reduce radiation dose to as low as reasonably achievable (ALARA). [facility]: Dose Right [facility]: CareDose [facility]: Dose Right [facility]: Teradose 4D [facility]: Smart Technologies RADIATION DOSE: CT Rad equipment meets quality standard of care and radiation dose reduction techniq ues were employed. CTDIvol: 6.9 mGy. DLP: 276 mGy-cm. mGy. LIMITATIONS: No technical limitations. FINDINGS: LUNGS AND PLEURA: Emphysematous changes with chronic scarring. Spiculated mass in the lef t apex, measuring 2.7 x 3.5 cm, with central cavitary component. Spiculated mass in the right lung a pex measuring 9 mm. No pleural effusion, pleural thickening, or pleural calcification. No pneumotho rax. HILAR AND MEDIASTINAL STRUCTURES: No identified masses or abnormal nodes. No obvious aneurysm. HEART AND VASCULAR STRUCTURES: No aneurysm. No pericardial effusion. UPPER ABDOMEN: No significant findings. Limited exam. THYROID AND OTHER SOFT TISSUES: No masses. No adenopathy. BONES: Compression fracture of the T9 vertebral body. HARDWARE: None in the chest. OTHER: No other significant findings. IMPRESSION: SPICULATED MASS IN THE LEFT LUNG APEX WITH CENTRAL CAVITARY COMPONENT. THIS IS SUSPICIO US FOR MALIGNANCY. INFECTIOUS PROCESS WITH CAVITARY PNEUMONIA COULD BE A POSSIBILITY BUT IS LESS LIK SOUMYA. THERE IS ALSO A SPICULATED LESION IN THE RIGHT LUNG APEX WHICH MAY ALSO BE MALIGNANT IN NATURE OR COULD REPRESENT FOCAL SCAR. NO OTHER SIGNIFICANT FINDINGS, OTHER THAN CHRONIC EMPHYSEMATOUS SOTO ES AND INTERSTITIAL SCARRING. TECHNICAL DOCUMENTATION: JOB ID: [id number] Quality ID # [id number]: Final reports with documentation of one or more dose reduction techniques (e.g., Au tomated exposure control, adjustment of the mA and/or kV according to patient size, use of iterative reconstruction technique) 2010 [email or web address]- All Rights Reserved
[2017-03-27] MEDS ORDERED: NICOTINE 21 MG/24 HR PATCH.TD24 TD ONE (16:30)
[2017-03-27] MEDS ORDERED: THIAMINE HCL 100 MG, FOLIC ACID 1 MG in NORMAL SALINE 250 ML IV ONE (17:00)
[2017-03-27] MEDS: OXYCODONE-ACETAMINOPHEN 5-325 MG TABLET PO PRN ×2 (17:12→20:44)
[2017-03-27] MEDS ORDERED: PIPERACILLIN SODIUM/TAZOBACTAM 3.375 GM in NORMAL SALINE 100 ML IV SCH (18:00)
[2017-03-27] MEDS ORDERED: TEMAZEPAM 15 MG CAPSULE PO SCH (22:00)
[2017-03-27] MEDS: 1/2 NORMAL SALINE 1,000 ML IV PRN (22:01)
[2017-03-27] MEDS: FAMOTIDINE 20 MG TABLET PO SCH (22:02)
[2017-03-27] MEDS: LEVOFLOXACIN 750 MG/D5W RTU 750 MG/150 ML RTUPB IV SCH (22:04)
[2017-03-28] MEDS ORDERED: PIPERACILLIN SODIUM/TAZOBACTAM 3.375 GM in NORMAL SALINE 100 ML IV SCH ×2
[2017-03-28] MEDS: PIPERACILLIN SODIUM/TAZOBACTAM 3.375 GM in NORMAL SALINE 100 ML IV SCH ×4 (04:42→22:22)
[2017-03-28 05:09] LABS: ANION GAP 12 (5-19); BLOOD UREA NITROGEN 10 mg/dL (7-20); CALCIUM 8.9 mg/dL (8.4-10.2); CARBON DIOXIDE 16 mmol/L (22-30); CHLORIDE 114 mmol/L (98-107); CREATINE KINASE 645 U/L (55-170); GLUCOSE 83 mg/dL (75-110); INTERNATIONAL RATION (INR) 0.99; PHOSPHORUS 3.1 mg/dL (2.5-4.5); POTASSIUM 3.6 mmol/L (3.6-5.0); PROTHROMBIN TIME 13.8 SEC (11.4-15.4); SODIUM 142.2 mmol/L (137-145)
[2017-03-28 05:10] LABS: PARTIAL THROMBOPLASTIN TIME 38.9 SEC (23.5-35.8)
[2017-03-28] MEDS ORDERED: TEMAZEPAM 15 MG CAPSULE PO PRN (06:30)
[2017-03-28 07:47] LABS: ABSOLUTE EOSINOPHILS # (AUTO) 0.1 10^3/uL (0.0-0.6); ABSOLUTE LYMPHOCYTES (AUTO) 0.6 10^3/uL (0.5-4.7); ABSOLUTE MONOCYTES (AUTO) 0.8 10^3/uL (0.1-1.4); ABSOLUTE NEUT (AUTO) 7.3 10^3/uL (1.7-8.2); BASOPHILS % (AUTO) 0.4 % (0-2); HEMATOCRIT 37.6 % (37.9-51.0); LYMPHOCYTES % (AUTO) 7.2 % (13-45); MEAN CORPUSCULAR HEMOGLOBIN 34.4 pg (27.0-33.4); MEAN CORPUSCULAR HGB CONC 34.5 g/dL (32.0-36.0); MONOCYTES % (AUTO) 8.9 % (3-13); PLATELET COUNT 162 10^3/uL (150-450); RED BLOOD COUNT 3.77 10^6/uL (4.35-5.55); RED CELL DISTRIBUTION WIDTH 13.3 % (11.5-14.0); SEGMENTED NEUTROPHILS % (AUTO) 82.5 % (42-78); TOTAL CELLS COUNTED % (AUTO) 100 %; WHITE BLOOD COUNT 8.9 10^3/uL (4.0-10.5)
[2017-03-28 07:57] LABS: MEAN CORPUSCULAR VOLUME 100 fl (80-97)
--- NOTE | 2017-03-28 10:41 | RADIOLOGY REPORT (SQ) ---
EXAM DESCRIPTION: CERV SP 3 VIEW OR LESS COMPLETED DATE/TIME: 03/28/2017 8:22 am REASON FOR STUDY: Fall COMPARISON: None. NUMBER OF VIEWS: Three views. TECHNIQUE: AP, lateral and odontoid radiographic images acquired of the cervical spine. LIMITATIONS: Lower cervical spine is not well visualize in the lateral projection. FINDINGS: MINERALIZATION: Normal. ALIGNMENT: Anatomic. VERTEBRAE: Vertebral bodies of normal height. DISCS: No significant disc space narrowing. No large osteophytes. HARDWARE: None in the spine. SOFT TISSUES: No masses or calcifications. Lung apices clear. OTHER: No other significant finding. IMPRESSION: NO SIGNIFICANT RADIOGRAPHIC FINDING IN THE CERVICAL SPINE. TECHNICAL DOCUMENTATION: JOB ID: [id number] [employer]- All Rights Reserved
[2017-03-28] MEDS: DIAZEPAM 5 MG TABLET PO SCH ×2 (12:00→22:24)
[2017-03-28] MEDS: FAMOTIDINE 20 MG TABLET PO SCH ×2 (12:00→22:24)
[2017-03-28] MEDS: THIAMINE HCL 100 MG, FOLIC ACID 1 MG in NORMAL SALINE 250 ML IV SCH (12:02)
--- NOTE | 2017-03-28 14:58 | PDOC PROGRESS REPORT ---
Subjective Progress Note for:: 03/28/17 Subjective:: Patient has no specific complaint has no shortness of breath no chest pain No abdominal pain nausea vomiting Reason For Visit: FALL,PNA OR CANCER Physical Exam Vital Signs: Temp Pulse Resp BP Pulse Ox 98.9 F 102 H 16 127/77 H 93 03/28/17 08:43 03/28/17 10:34 03/28/17 10:34 03/28/17 08:43 03/28/17 10:34 Intake & Output 03/27/17 03/28/17 03/29/17 00:59 00:59 00:59 Intake Total 1050 Output Total 800 Balance 250 Weight 69.7 kg Patient looks acute and chronically ill acute respiratory distress His color is somewhat sow pupils are PERRLA conjunctiva pale neck supple Heart regular rhythm Lungs decreased breath sounds bilaterally without wheezes or rhonchi Abdomen is soft neuro left upper extremity weakness Results Laboratory Results: 03/28/17 07:10 03/28/17 04:17 03/27/17 03/28/17 03/28/17 19:15 04:17 04:17 WBC Cancelled RBC Cancelled Hgb Cancelled Hct Cancelled MCV Cancelled MCH Cancelled MCHC Cancelled RDW Cancelled Plt Count Cancelled Seg Neutrophils % Cancelled Lymphocytes % Cancelled Monocytes % Cancelled Eosinophils % Cancelled Basophils % Cancelled Absolute Neutrophils Cancelled Absolute Lymphocytes Cancelled Absolute Monocytes Cancelled Absolute Eosinophils Cancelled Absolute Basophils Cancelled Sodium 142.2 Potassium 3.6 Chloride 114 H Carbon Dioxide 16 L Anion Gap 12 BUN 10 Creatinine 1.16 Est GFR ( Amer) > 60 Est GFR (Non-Af Amer) > 60 Glucose 83 Lactic Acid 1.0 Calcium 8.9 Phosphorus 3.1 Magnesium 2.0 D TSH 03/28/17 03/28/17 04:17 07:10 WBC 8.9 RBC 3.77 L Hgb 13.0 L D Hct 37.6 L MCV 100 H D MCH 34.4 H MCHC 34.5 RDW 13.3 Plt Count 162 Seg Neutrophils % 82.5 H Lymphocytes % 7.2 L Monocytes % 8.9 Eosinophils % 1.0 Basophils % 0.4 Absolute Neutrophils 7.3 Absolute Lymphocytes 0.6 Absolute Monocytes 0.8 Absolute Eosinophils 0.1 Absolute Basophils 0.0 Sodium Potassium Chloride Carbon Dioxide Anion Gap BUN Creatinine Est GFR ( Amer) Est GFR (Non-Af Amer) Glucose Lactic Acid Calcium Phosphorus Magnesium TSH 1.96 03/27/17 03/27/17 03/28/17 16:17 22:15 04:17 Creatine Kinase 479 H 578 H 645 H Troponin I 03/28/17 04:17 Creatine Kinase Troponin I 0.015 Impressions: Chest CT 03/27/17 00:00 IMPRESSION: SPICULATED MASS IN THE LEFT LUNG APEX WITH CENTRAL CAVITARY COMPONENT. THIS IS SUSPICIOUS FOR MALIGNANCY. INFECTIOUS PROCESS WITH CAVITARY PNEUMONIA COULD BE A POSSIBILITY BUT IS LESS LIKELY. THERE IS ALSO A SPICULATED LESION IN THE RIGHT LUNG APEX WHICH MAY ALSO BE MALIGNANT IN NATURE OR COULD REPRESENT FOCAL SCAR. NO OTHER SIGNIFICANT FINDINGS, OTHER THAN CHRONIC EMPHYSEMATOUS CHANGES AND INTERSTITIAL SCARRING. Acute Abdomen Series 03/27/17 08:44 IMPRESSION: Nothing acute. No bowel dilatation. Small amount of fecal material. Head CT 03/27/17 08:59 IMPRESSION: Large subacute/ chronic nonhemorrhagic infarct left MCA territory. EVIDENCE OF ACUTE STROKE: See above. LEFT MCA Thoracic Spine CT 03/27/17 11:03 IMPRESSION: 1. Recent compression fracture of T9. 2. Left apical lung mass. Cervical Spine X-Ray 03/28/17 00:00 IMPRESSION: NO SIGNIFICANT RADIOGRAPHIC FINDING IN THE CERVICAL SPINE. Assessment & Plan - Diagnosis (1) Compression fx, thoracic spine Qualifiers: Encounter type: initial encounter Fracture type: closed Qualified Code(s) : S22.000A - Wedge compression fracture of unspecified thoracic vertebra, initial encounter for closed fracture Is this a current diagnosis for this admission?: Yes Plan: fracture may be a pathological fracture secondary to bone metastases We will order bone scan to evaluate patient for metastatic disease if pain is so severe patient may be a candidate for vertebroplasty We will reevaluate patient in am MRI thoracic spine may be indicated at some point (2) Fall Qualifiers: Encounter type: initial encounter Qualified Code(s): W19.XXXA - Unspecified fall, initial encounter Is this a current diagnosis for this admission?: Yes (3) Pneumonia Qualifiers: Pneumonia type: due to unspecified organism Laterality: unspecified laterality Lung location: unspecified part of lung Qualified Code(s): J18.9 - Pneumonia, unspecified organism Is this a current diagnosis for this admission?: Yes (4) Cavitating mass of lung Is this a current diagnosis for this admission?: Yes Plan: CT of the chest showed 2 spiculated lesions in the upper lobes with cavitation; suspicious of malignancy and cavitary pneumonia Patient is not a candidate at this time for bronchoscopy Case was discussed with Dr. Hinojosa We will continue antibiotic management; continue respiratory isolation; CT head was negative; CT abdomen and pelvis was negative 3 months ago We will order a bone scan to exclude metastatic bone lesions (5) High anion gap metabolic acidosis Is this a current diagnosis for this admission?: Yes Plan: Metabolic acidosis on admission likely secondary to sepsis Patient may have had a seizure and secondary metabolic acidosis continue antibiotics continue hydration Follow-up BMP in a.m. (6) Seizure Is this a current diagnosis for this admission?: Yes Plan: Should be excluded EEG ordered (7) Syncope Qualifiers: Syncope type: unspecified Qualified Code(s): R55 - Syncope and collapse (8) Alcoholism /alcohol abuse Is this a current diagnosis for this admission?: Yes Plan: Continue thiamine (9) CVA, old, cognitive deficits Is this a current diagnosis for this admission?: Yes Plan: Patient has a past history of stroke CAT scan of the brain showed subacute MCA stroke ? Is it a more extensive stroke than he had before We do not have prior CAT scans to compare with ; we will order an MRI of the brain which hopefully will give her some information initiate treatment with aspirin and Lipitor (10) Rhabdomyolysis Qualifiers: Rhabdomyolysis type: traumatic Is this a current diagnosis for this admission?: Yes Plan: Likely secondary to fall Continue hydration (11) Acute renal failure Qualifiers: Acute renal failure type: unspecified Qualified Code(s): N17.9 - Acute kidney failure, unspecified Is this a current diagnosis for this admission?: Yes Plan: Secondary to rhabdo and dehydration Continue normal saline - Time Time Spent with patient: 25-34 minutes - Plan Summary Plan Summary: Patient's condition is guarded ; if not a candidate for chemotherapy at this time as he appears chronically ill Extremely frail with too many comorbidities He may be a candidate for radiation therapy If his condition improves; tissue diagnosis should be attempted ; bone scan is pending
--- NOTE | 2017-03-28 16:39 | RADIOLOGY REPORT (SQ) ---
EXAM DESCRIPTION: MRI HEAD WITHOUT COMPLETED DATE/TIME: 03/28/2017 4:27 pm REASON FOR STUDY: ? subacute - old CVA COMPARISON: Brain CT scan dated 03/27/2017 TECHNIQUE: Multiplanar imaging includes non-contrasted T1, T2, FLAIR, and Diffusion with ADC map seq uences. Images stored on PACS. LIMITATIONS: None. FINDINGS: ANATOMY: No anomalies. Normal vascular flow voids. Pituitary fossa normal. CSF SPACES: Normal in size and contour. No hemorrhage. CEREBRUM: A few high-signal intensity lesions scattered throughout the white matter on FLAIR imaging with distribution suggesting chronic micro-vascular ischemic change. Sulci and gyri normal in size a nd contour. No evidence of hemorrhage, mass or extraaxial fluid collection. Old left MCA infarct is identified which correlates with the CT findings. POSTERIOR FOSSA: No signal alteration. No hemorrhage. No edema, masses or mass effect. Internal homero tory canals, cerebello-pontine angles, mastoids normal. DIFFUSION: Negative for acute or sub-acute infarction. ORBITS: No masses. Globes normal. PARANASAL SINUSES: No fluid levels. Mucosa normal. OTHER: No other significant finding. IMPRESSION: MINIMAL MICROVASCULAR ISCHEMIC CHANGE. Old left MCA infarct. Other findings as noted a daniel EVIDENCE OF ACUTE STROKE: NO. TECHNICAL DOCUMENTATION: JOB ID: [id number] [employer]- All Rights Reserved
[2017-03-28] MEDS: LEVOFLOXACIN 750 MG/D5W RTU 750 MG/150 ML RTUPB IV SCH (23:19)
[2017-03-29] MEDS: PIPERACILLIN SODIUM/TAZOBACTAM 3.375 GM in NORMAL SALINE 100 ML IV SCH ×4 (03:17→23:11)
[2017-03-29 04:54] LABS: ABSOLUTE BASOPHILS # (AUTO) 0.1 10^3/uL (0.0-0.2); ABSOLUTE EOSINOPHILS # (AUTO) 0.3 10^3/uL (0.0-0.6); ABSOLUTE LYMPHOCYTES (AUTO) 1.2 10^3/uL (0.5-4.7); ABSOLUTE MONOCYTES (AUTO) 0.9 10^3/uL (0.1-1.4); BASOPHILS % (AUTO) 0.8 % (0-2); EOSINOPHILS % (AUTO) 3.8 % (0-6); HEMATOCRIT 35.7 % (37.9-51.0); HEMOGLOBIN 12.2 g/dL (13.5-17.0); LYMPHOCYTES % (AUTO) 13.7 % (13-45); MEAN CORPUSCULAR HEMOGLOBIN 34.1 pg (27.0-33.4); MEAN CORPUSCULAR HGB CONC 34.2 g/dL (32.0-36.0); MEAN CORPUSCULAR VOLUME 100 fl (80-97); PLATELET COUNT 151 10^3/uL (150-450); RED BLOOD COUNT 3.58 10^6/uL (4.35-5.55); RED CELL DISTRIBUTION WIDTH 13.3 % (11.5-14.0); SEGMENTED NEUTROPHILS % (AUTO) 70.7 % (42-78); TOTAL CELLS COUNTED % (AUTO) 100 %; WHITE BLOOD COUNT 8.5 10^3/uL (4.0-10.5)
[2017-03-29 04:57] LABS: INTERNATIONAL RATION (INR) 1.04; PROTHROMBIN TIME 14.3 SEC (11.4-15.4)
[2017-03-29 05:14] LABS: ANION GAP 12 (5-19); BLOOD UREA NITROGEN 8 mg/dL (7-20); CARBON DIOXIDE 20 mmol/L (22-30); CHLORIDE 109 mmol/L (98-107); GLUCOSE 71 mg/dL (75-110); MAGNESIUM 1.5 mg/dL (1.6-2.3); PHOSPHORUS 2.6 mg/dL (2.5-4.5); POTASSIUM 3.3 mmol/L (3.6-5.0)
[2017-03-29] MEDS ORDERED: POTASSIUM CHLORIDE 10 MEQ TABLET.SA PO ONE (06:59)
[2017-03-29] MEDS: 1/2 NORMAL SALINE 1,000 ML IV PRN (07:15)
[2017-03-29] MEDS: FAMOTIDINE 20 MG TABLET PO SCH ×2 (09:58→23:12)
[2017-03-29] MEDS: THIAMINE HCL 100 MG, FOLIC ACID 1 MG in NORMAL SALINE 250 ML IV SCH (09:58)
[2017-03-29] MEDS: DIAZEPAM 5 MG TABLET PO SCH ×2 (09:58→23:12)
[2017-03-29] MEDS: MAGNESIUM SULFATE/D5W 1 GM/100 ML RTUPB IV SCH ×2 (12:56→14:57)
--- NOTE | 2017-03-29 14:24 | PDOC PROGRESS REPORT ---
Subjective Progress Note for:: 03/29/17 Subjective:: Patient states he is feeling well He did not have any recurrent seizures He has no fever no chills He has no chest pain shortness of breath His appetite is good Reason For Visit: FALL,PNA OR CANCER Physical Exam Vital Signs: Temp Pulse Resp BP Pulse Ox 98.5 F 66 16 120/78 93 03/29/17 04:30 03/29/17 08:00 03/29/17 08:00 03/29/17 04:30 03/29/17 08:00 Intake & Output 03/28/17 03/29/17 03/30/17 00:59 00:59 00:59 Intake Total 2300 1325 Output Total 2900 650 Balance -600 675 Weight 69.7 kg 70.9 kg Patient looks chronically ill acutein no respiratory distress His color is somewhat sow pupils are PERRLA conjunctiva pale neck supple Heart regular rhythm Lungs decreased breath sounds bilaterally without wheezes or rhonchi Abdomen is soft neuro left upper extremity weakness Results Laboratory Results: 03/29/17 03:53 03/29/17 03:53 03/29/17 03/29/17 03:53 03:53 WBC 8.5 RBC 3.58 L Hgb 12.2 L Hct 35.7 L MCV 100 H MCH 34.1 H MCHC 34.2 RDW 13.3 Plt Count 151 Seg Neutrophils % 70.7 Lymphocytes % 13.7 Monocytes % 11.0 Eosinophils % 3.8 Basophils % 0.8 Absolute Neutrophils 6.0 Absolute Lymphocytes 1.2 Absolute Monocytes 0.9 Absolute Eosinophils 0.3 Absolute Basophils 0.1 Sodium 141.0 Potassium 3.3 L Chloride 109 H Carbon Dioxide 20 L Anion Gap 12 BUN 8 Creatinine 1.07 Est GFR ( Amer) > 60 Est GFR (Non-Af Amer) > 60 Glucose 71 L Calcium 9.0 Phosphorus 2.6 Magnesium 1.5 L 03/27/17 03/27/17 03/28/17 16:17 22:15 04:17 Creatine Kinase 479 H 578 H 645 H Troponin I 03/28/17 04:17 Creatine Kinase Troponin I 0.015 Impressions: Chest CT 03/27/17 00:00 IMPRESSION: SPICULATED MASS IN THE LEFT LUNG APEX WITH CENTRAL CAVITARY COMPONENT. THIS IS SUSPICIOUS FOR MALIGNANCY. INFECTIOUS PROCESS WITH CAVITARY PNEUMONIA COULD BE A POSSIBILITY BUT IS LESS LIKELY. THERE IS ALSO A SPICULATED LESION IN THE RIGHT LUNG APEX WHICH MAY ALSO BE MALIGNANT IN NATURE OR COULD REPRESENT FOCAL SCAR. NO OTHER SIGNIFICANT FINDINGS, OTHER THAN CHRONIC EMPHYSEMATOUS CHANGES AND INTERSTITIAL SCARRING. Acute Abdomen Series 03/27/17 08:44 IMPRESSION: Nothing acute. No bowel dilatation. Small amount of fecal material. Head CT 03/27/17 08:59 IMPRESSION: Large subacute/ chronic nonhemorrhagic infarct left MCA territory. EVIDENCE OF ACUTE STROKE: See above. LEFT MCA Thoracic Spine CT 03/27/17 11:03 IMPRESSION: 1. Recent compression fracture of T9. 2. Left apical lung mass. Cervical Spine X-Ray 03/28/17 00:00 IMPRESSION: NO SIGNIFICANT RADIOGRAPHIC FINDING IN THE CERVICAL SPINE. Head MRI 03/28/17 14:55 IMPRESSION: MINIMAL MICROVASCULAR ISCHEMIC CHANGE. Old left MCA infarct. Other findings as noted above EVIDENCE OF ACUTE STROKE: NO. Assessment & Plan - Diagnosis (1) Compression fx, thoracic spine Qualifiers: Encounter type: initial encounter Fracture type: closed Qualified Code(s) : S22.000A - Wedge compression fracture of unspecified thoracic vertebra, initial encounter for closed fracture Is this a current diagnosis for this admission?: Yes Plan: Secondary to fall It is unlikely that it is a pathologic fracture ; bone scan is pending ; patient has mild to moderate pain (2) Fall Qualifiers: Encounter type: initial encounter Qualified Code(s): W19.XXXA - Unspecified fall, initial encounter Is this a current diagnosis for this admission?: Yes (3) Pneumonia Qualifiers: Pneumonia type: due to unspecified organism Laterality: unspecified laterality Lung location: unspecified part of lung Qualified Code(s): J18.9 - Pneumonia, unspecified organism Is this a current diagnosis for this admission?: Yes (4) Cavitating mass of lung Is this a current diagnosis for this admission?: Yes Plan: Patient will need a tissue diagnosis discussed the case with Dr. Hinojosa Bronchoscopy may be performed on Sunday if patient is clinically stable (5) High anion gap metabolic acidosis Is this a current diagnosis for this admission?: Yes Plan: Improved (6) Seizure Is this a current diagnosis for this admission?: Yes (7) Syncope Qualifiers: Syncope type: unspecified Qualified Code(s): R55 - Syncope and collapse (8) Alcoholism /alcohol abuse Is this a current diagnosis for this admission?: Yes (9) CVA, old, cognitive deficits Is this a current diagnosis for this admission?: Yes Plan: An MRI of the brain showed just an old CVA There is no evidence of a new acute stroke (10) Rhabdomyolysis Qualifiers: Rhabdomyolysis type: traumatic Is this a current diagnosis for this admission?: Yes (11) Acute renal failure Qualifiers: Acute renal failure type: unspecified Qualified Code(s): N17.9 - Acute kidney failure, unspecified Is this a current diagnosis for this admission?: Yes Plan: Secondary to rhabdomyolysis and dehydration has improved - Time Time Spent with patient: 25-34 minutes - Plan Summary Plan Summary: Continue IV antibiotics Patient will need most sputum for acid-fast
[2017-03-30] MEDS: LEVOFLOXACIN 750 MG/D5W RTU 750 MG/150 ML RTUPB IV SCH ×2 (00:12→22:19)
[2017-03-30] MEDS: PIPERACILLIN SODIUM/TAZOBACTAM 3.375 GM in NORMAL SALINE 100 ML IV SCH ×4 (03:48→21:05)
[2017-03-30 06:34] LABS: ABSOLUTE EOSINOPHILS # (AUTO) 0.3 10^3/uL (0.0-0.6); ABSOLUTE LYMPHOCYTES (AUTO) 1.1 10^3/uL (0.5-4.7); ABSOLUTE MONOCYTES (AUTO) 0.8 10^3/uL (0.1-1.4); ABSOLUTE NEUT (AUTO) 5.1 10^3/uL (1.7-8.2); BASOPHILS % (AUTO) 0.7 % (0-2); EOSINOPHILS % (AUTO) 4.2 % (0-6); HEMATOCRIT 35.8 % (37.9-51.0); HEMOGLOBIN 12.3 g/dL (13.5-17.0); LYMPHOCYTES % (AUTO) 14.4 % (13-45); MEAN CORPUSCULAR HEMOGLOBIN 34.2 pg (27.0-33.4); MEAN CORPUSCULAR HGB CONC 34.5 g/dL (32.0-36.0); MEAN CORPUSCULAR VOLUME 99 fl (80-97); MONOCYTES % (AUTO) 11.2 % (3-13); PLATELET COUNT 146 10^3/uL (150-450); RED BLOOD COUNT 3.61 10^6/uL (4.35-5.55); RED CELL DISTRIBUTION WIDTH 13.1 % (11.5-14.0); SEGMENTED NEUTROPHILS % (AUTO) 69.5 % (42-78); TOTAL CELLS COUNTED % (AUTO) 100 %; WHITE BLOOD COUNT 7.3 10^3/uL (4.0-10.5)
[2017-03-30 06:55] LABS: ANION GAP 8 (5-19); BLOOD UREA NITROGEN 10 mg/dL (7-20); CALCIUM 8.6 mg/dL (8.4-10.2); CARBON DIOXIDE 23 mmol/L (22-30); CHLORIDE 108 mmol/L (98-107); GLUCOSE 102 mg/dL (75-110); MAGNESIUM 1.5 mg/dL (1.6-2.3); PHOSPHORUS 3.1 mg/dL (2.5-4.5); POTASSIUM 3.4 mmol/L (3.6-5.0); SODIUM 139.2 mmol/L (137-145)
[2017-03-30 07:50] LABS: INTERNATIONAL RATION (INR) 0.95; PROTHROMBIN TIME 13.4 SEC (11.4-15.4)
--- NOTE | 2017-03-30 09:48 | Physician Advisory Note ---
Physician Advisor ProgressNote .: [facility], I have reviewed the medical record for this patient. Physician Advisor Statement: H&P states tx'ing with "abx to cover both community-acquired raman & post- obstructive raman which will include anaerobes". Please consider documenting, if you agree: 1. "Possible pneumonia, suspect type [gram-___? anaerobic? ...], evidenced by " [any cough? fever? chills? dyspnea? sputum? pleuritic CP? N/V/D? RR>24? tachycardia? crackles? evidence of consolidation ? ...] - or, if this dx is ruled out by time of d/c, please state that. 2. "fall due to [syncope?, seizure?, ...], which was likely due to ___" [alcoholism?, infection?, ...] - We have to spell out cause(s). 3. "Acute high anion gap metabolic acidosis, suspect due to " Thanks! CK
[2017-03-30] MEDS: FAMOTIDINE 20 MG TABLET PO SCH ×2 (09:53→21:06)
[2017-03-30] MEDS: THIAMINE HCL 100 MG TABLET PO SCH (09:53)
[2017-03-30] MEDS: DIAZEPAM 5 MG TABLET PO SCH (09:53)
--- NOTE | 2017-03-30 11:43 | RADIOLOGY REPORT (SQ) ---
EXAM DESCRIPTION: CAROTID DOPPLER COMPLETED DATE/TIME: 03/30/2017 11:28 am REASON FOR STUDY: acute CVA COMPARISON: None. TECHNIQUE: Grayscale ultrasound, Doppler velocity and spectra, and color Doppler images acquired of the extra-cranial carotid and vertebral arteries. Images stored on PACS. LIMITATIONS: None. FINDINGS: RIGHT CAROTID CCA Velocities: Within normal limits. ICA Velocities Peak systolic 0.65 m/s. End diastolic 0.17 m/s. Proximal ICA/CCA peak systolic ratio 1.1. Spectra normal. No significant plaque. LEFT CAROTID CCA Velocities: Within normal limits. ICA Velocities Peak systolic 0.61 m/s. End diastolic 0.18 m/s. Proximal ICA/CCA peak systolic ratio 1.4. Spectra normal. No significant plaque. VERTEBRAL ARTERIES: Antegrade flow. Normal waveforms. SUBCLAVIAN ARTERIES: Not evaluated OTHER: No other significant finding. IMPRESSION: NO HEMODYNAMICALLY SIGNIFICANT STENOSIS. COMMENT: Quality ID #[id number]: Velocity criteria are extrapolated from the diameter data as defined by t he Society of Radiologists in Ultrasound Consensus Conference. Radiology 2003: 229; 340-346. TECHNICAL DOCUMENTATION: JOB ID: [id number] [employer]- All Rights Reserved
[2017-03-30] MEDS: MAGNESIUM SULFATE/D5W 1 GM/100 ML RTUPB IV SCH ×3 (12:50→14:58)
--- NOTE | 2017-03-30 17:57 | PDOC PROGRESS REPORT ---
Subjective Progress Note for:: 03/30/17 Subjective:: Patient is doing extremely well ; he looks better He is eating well No fever no chills no hemoptysis Reason For Visit: FALL,PNA OR CANCER Physical Exam Vital Signs: Temp Pulse Resp BP Pulse Ox 98.6 F 65 18 113/80 96 03/30/17 11:47 03/30/17 12:00 03/30/17 12:00 03/30/17 12:00 03/30/17 12:00 Intake & Output 03/29/17 03/30/17 03/31/17 00:59 00:59 00:59 Intake Total 2300 1775 650 Output Total 2900 950 Balance -600 825 650 Weight 69.7 kg 70.9 kg General appearance: PRESENT: no acute distress Head exam: PRESENT: atraumatic, normocephalic Eye exam: PRESENT: conjunctiva pink, EOMI, PERRLA. ABSENT: scleral icterus Respiratory exam: PRESENT: clear to auscultation homero. ABSENT: rales, rhonchi, wheezes Cardiovascular exam: PRESENT: RRR. ABSENT: diastolic murmur, rubs, systolic murmur Pulses: PRESENT: normal dorsalis pedis pul GI/Abdominal exam: PRESENT: normal bowel sounds, soft. ABSENT: distended, guarding, mass, organolmegaly, rebound, tenderness Extremities exam: PRESENT: full ROM. ABSENT: calf tenderness, clubbing, pedal edema Neurological exam: PRESENT: alert, awake, oriented to person, oriented to place , CN II-XII grossly intact. ABSENT: motor sensory deficit Results Laboratory Results: 03/30/17 06:22 03/30/17 06:22 03/30/17 03/30/17 06:22 06:22 WBC 7.3 RBC 3.61 L Hgb 12.3 L Hct 35.8 L MCV 99 H MCH 34.2 H MCHC 34.5 RDW 13.1 Plt Count 146 L Seg Neutrophils % 69.5 Lymphocytes % 14.4 Monocytes % 11.2 Eosinophils % 4.2 Basophils % 0.7 Absolute Neutrophils 5.1 Absolute Lymphocytes 1.1 Absolute Monocytes 0.8 Absolute Eosinophils 0.3 Absolute Basophils 0.0 Sodium 139.2 Potassium 3.4 L Chloride 108 H Carbon Dioxide 23 Anion Gap 8 BUN 10 Creatinine 1.03 Est GFR ( Amer) > 60 Est GFR (Non-Af Amer) > 60 Glucose 102 Calcium 8.6 Phosphorus 3.1 Magnesium 1.5 L 03/27/17 03/27/17 03/28/17 16:17 22:15 04:17 Creatine Kinase 479 H 578 H 645 H Troponin I 03/28/17 04:17 Creatine Kinase Troponin I 0.015 Impressions: Chest CT 03/27/17 00:00 IMPRESSION: SPICULATED MASS IN THE LEFT LUNG APEX WITH CENTRAL CAVITARY COMPONENT. THIS IS SUSPICIOUS FOR MALIGNANCY. INFECTIOUS PROCESS WITH CAVITARY PNEUMONIA COULD BE A POSSIBILITY BUT IS LESS LIKELY. THERE IS ALSO A SPICULATED LESION IN THE RIGHT LUNG APEX WHICH MAY ALSO BE MALIGNANT IN NATURE OR COULD REPRESENT FOCAL SCAR. NO OTHER SIGNIFICANT FINDINGS, OTHER THAN CHRONIC EMPHYSEMATOUS CHANGES AND INTERSTITIAL SCARRING. Acute Abdomen Series 03/27/17 08:44 IMPRESSION: Nothing acute. No bowel dilatation. Small amount of fecal material. Head CT 03/27/17 08:59 IMPRESSION: Large subacute/ chronic nonhemorrhagic infarct left MCA territory. EVIDENCE OF ACUTE STROKE: See above. LEFT MCA Thoracic Spine CT 03/27/17 11:03 IMPRESSION: 1. Recent compression fracture of T9. 2. Left apical lung mass. Cervical Spine X-Ray 03/28/17 00:00 IMPRESSION: NO SIGNIFICANT RADIOGRAPHIC FINDING IN THE CERVICAL SPINE. Head MRI 03/28/17 14:55 IMPRESSION: MINIMAL MICROVASCULAR ISCHEMIC CHANGE. Old left MCA infarct. Other findings as noted above EVIDENCE OF ACUTE STROKE: NO. Carotid Doppler Study 03/30/17 00:00 IMPRESSION: NO HEMODYNAMICALLY SIGNIFICANT STENOSIS. Assessment & Plan - Diagnosis (1) Compression fx, thoracic spine Qualifiers: Encounter type: initial encounter Fracture type: closed Qualified Code(s) : S22.000A - Wedge compression fracture of unspecified thoracic vertebra, initial encounter for closed fracture Is this a current diagnosis for this admission?: Yes (2) Fall Qualifiers: Encounter type: initial encounter Qualified Code(s): W19.XXXA - Unspecified fall, initial encounter Is this a current diagnosis for this admission?: Yes (3) Pneumonia Qualifiers: Pneumonia type: due to unspecified organism Laterality: unspecified laterality Lung location: unspecified part of lung Qualified Code(s): J18.9 - Pneumonia, unspecified organism Is this a current diagnosis for this admission?: Yes (4) Cavitating mass of lung Is this a current diagnosis for this admission?: Yes (5) High anion gap metabolic acidosis Is this a current diagnosis for this admission?: Yes (6) Seizure Is this a current diagnosis for this admission?: Yes (7) Syncope Qualifiers: Syncope type: unspecified Qualified Code(s): R55 - Syncope and collapse (8) Alcoholism /alcohol abuse Is this a current diagnosis for this admission?: Yes Plan: Decrease benzos ; patient has no evidence of withdrawal No seizures DC MEND Exams (9) CVA, old, cognitive deficits Is this a current diagnosis for this admission?: Yes Plan: Old CVA There is no evidence of an acute infarct (10) Rhabdomyolysis Qualifiers: Rhabdomyolysis type: traumatic Is this a current diagnosis for this admission?: Yes (11) Acute renal failure Qualifiers: Acute renal failure type: unspecified Qualified Code(s): N17.9 - Acute kidney failure, unspecified Is this a current diagnosis for this admission?: Yes - Time Time Spent with patient: 25-34 minutes - Plan Summary Plan Summary: Continue IV antibiotics Continue respiratory isolation until 3 sputum's are negative for AFB Patient looks a lot better we will speak with Dr. Hinojosa to schedule bronchoscopy on Sunday for tissue diagnosis Patient is to be discharged on Sunday after procedure
[2017-03-30] MEDS: MAGNESIUM OXIDE 400 MG TABLET PO SCH (18:27)
[2017-03-30] MEDS ORDERED: POTASSIUM CHLORIDE 10 MEQ TABLET.SA PO ONE (18:30)
[2017-03-30] MEDS: DIAZEPAM 2 MG TABLET PO SCH (21:06)
[2017-03-30] MEDS ORDERED: DIAZEPAM 5 MG TABLET PO SCH (22:00)
[2017-03-31] MEDS: PIPERACILLIN SODIUM/TAZOBACTAM 3.375 GM in NORMAL SALINE 100 ML IV SCH ×4 (04:37→21:27)
--- NOTE | 2017-03-31 08:56 | PDOC PROGRESS REPORT ---
Subjective Progress Note for:: 03/31/17 Reason For Visit: FALL,PNA OR CANCER Physical Exam Vital Signs: Temp Pulse Resp BP Pulse Ox 98.1 F 51 L 16 132/64 H 95 03/31/17 07:29 03/31/17 07:29 03/31/17 07:29 03/31/17 07:29 03/31/17 07:29 Intake & Output 03/30/17 03/31/17 04/01/17 06:59 06:59 06:59 Intake Total 1150 2317 Output Total 700 Balance 450 2317 Weight 71.4 kg General appearance: PRESENT: no acute distress, disheveled, well-developed, well -nourished Head exam: PRESENT: atraumatic, normocephalic Eye exam: PRESENT: EOMI. ABSENT: scleral icterus Ear exam: PRESENT: normal external ear exam Mouth exam: PRESENT: moist Neck exam: ABSENT: carotid bruit, JVD, lymphadenopathy, thyromegaly Respiratory exam: PRESENT: clear to auscultation homero. ABSENT: rales, rhonchi, wheezes Cardiovascular exam: PRESENT: RRR. ABSENT: diastolic murmur, rubs, systolic murmur Pulses: PRESENT: normal dorsalis pedis pul Vascular exam: PRESENT: normal capillary refill GI/Abdominal exam: PRESENT: normal bowel sounds, soft, other - colostomy with stool and air. ABSENT: distended, guarding, mass, organolmegaly, rebound, tenderness Rectal exam: PRESENT: deferred Extremities exam: PRESENT: full ROM. ABSENT: calf tenderness, clubbing, pedal edema Neurological exam: PRESENT: alert, awake, oriented to person, oriented to place , oriented to time, oriented to situation, CN II-XII grossly intact, other - right arm and hand weakness. ABSENT: motor sensory deficit Psychiatric exam: PRESENT: appropriate affect, normal mood. ABSENT: homicidal ideation, suicidal ideation Skin exam: PRESENT: dry, intact, warm. ABSENT: cyanosis, rash Results Laboratory Results: 03/30/17 06:22 03/30/17 06:22 03/27/17 03/27/17 03/28/17 16:17 22:15 04:17 Creatine Kinase 479 H 578 H 645 H Troponin I 03/28/17 04:17 Creatine Kinase Troponin I 0.015 Impressions: Chest CT 03/27/17 00:00 IMPRESSION: SPICULATED MASS IN THE LEFT LUNG APEX WITH CENTRAL CAVITARY COMPONENT. THIS IS SUSPICIOUS FOR MALIGNANCY. INFECTIOUS PROCESS WITH CAVITARY PNEUMONIA COULD BE A POSSIBILITY BUT IS LESS LIKELY. THERE IS ALSO A SPICULATED LESION IN THE RIGHT LUNG APEX WHICH MAY ALSO BE MALIGNANT IN NATURE OR COULD REPRESENT FOCAL SCAR. NO OTHER SIGNIFICANT FINDINGS, OTHER THAN CHRONIC EMPHYSEMATOUS CHANGES AND INTERSTITIAL SCARRING. Acute Abdomen Series 03/27/17 08:44 IMPRESSION: Nothing acute. No bowel dilatation. Small amount of fecal material. Head CT 03/27/17 08:59 IMPRESSION: Large subacute/ chronic nonhemorrhagic infarct left MCA territory. EVIDENCE OF ACUTE STROKE: See above. LEFT MCA Thoracic Spine CT 03/27/17 11:03 IMPRESSION: 1. Recent compression fracture of T9. 2. Left apical lung mass. Cervical Spine X-Ray 03/28/17 00:00 IMPRESSION: NO SIGNIFICANT RADIOGRAPHIC FINDING IN THE CERVICAL SPINE. Head MRI 03/28/17 14:55 IMPRESSION: MINIMAL MICROVASCULAR ISCHEMIC CHANGE. Old left MCA infarct. Other findings as noted above EVIDENCE OF ACUTE STROKE: NO. Carotid Doppler Study 03/30/17 00:00 IMPRESSION: NO HEMODYNAMICALLY SIGNIFICANT STENOSIS. Assessment & Plan - Diagnosis (1) Pneumonia Qualifiers: Pneumonia type: due to unspecified organism Laterality: unspecified laterality Lung location: unspecified part of lung Qualified Code(s): J18.9 - Pneumonia, unspecified organism Is this a current diagnosis for this admission?: Yes Plan: Possibly aspiration pneumonia at patient was found down and possible seizing at home. Patient being treated with zosyn and levaquin. Leukocytosis is now resolved. (2) Alcoholism /alcohol abuse Is this a current diagnosis for this admission?: Yes Plan: Patient on valium with no clear signs of withdrawal. (3) CVA, old, cognitive deficits Is this a current diagnosis for this admission?: Yes Plan: Patient with residual right hand weakness. Continue supportive care. (4) Cavitating mass of lung Is this a current diagnosis for this admission?: Yes Plan: TB is being ruled out along with other infectious etiology. Patient is also being worked up for possible malignancy. Plan for bronch on Sunday. (5) Compression fracture of body of thoracic vertebra Is this a current diagnosis for this admission?: Yes Plan: Most likely occurred during the fall. Patient states pain is better controlled and he is able to walk. (6) Fall Qualifiers: Encounter type: initial encounter Qualified Code(s): W19.XXXA - Unspecified fall, initial encounter Is this a current diagnosis for this admission?: Yes Plan: Possible secondary to seizure. Patient more stable on feet. (7) Metabolic acidosis Is this a current diagnosis for this admission?: Yes Plan: Now resolved but could be due to dehydration and or possible seizure from etoh withdrawal resulting in elevated lactic acid. (8) Seizure Is this a current diagnosis for this admission?: Yes Plan: Possible secondary to alcohol withdrawal. Patient on valium for alcohol withdrawal. It is being tapered off. Patient on seizure precautions. Patient with no other seizures. (9) Tobacco abuse Is this a current diagnosis for this admission?: Yes Plan: Will primary counselor and start nicotine patch. - Time Time Spent with patient: Less than 15 minutes Anticipated discharge: Home Within: within 36 hours - Inpatient Certification Medical Necessity: Need for IV Antibiotics - TB is being ruled out.
[2017-03-31] MEDS: THIAMINE HCL 100 MG TABLET PO SCH (09:31)
[2017-03-31] MEDS: NICOTINE 21 MG/24 HR PATCH.TD24 TD SCH (09:31)
[2017-03-31] MEDS: FAMOTIDINE 20 MG TABLET PO SCH ×2 (09:31→21:27)
[2017-03-31] MEDS: MAGNESIUM OXIDE 400 MG TABLET PO SCH ×2 (09:31→17:45)
[2017-03-31] MEDS: LEVOFLOXACIN 750 MG/D5W RTU 750 MG/150 ML RTUPB IV SCH (21:26)
[2017-03-31] MEDS: DIAZEPAM 2 MG TABLET PO SCH (21:27)
[2017-04-01] MEDS: PIPERACILLIN SODIUM/TAZOBACTAM 3.375 GM in NORMAL SALINE 100 ML IV SCH (03:36)
[2017-04-01] MEDS: MAGNESIUM OXIDE 400 MG TABLET PO SCH ×2 (09:48→18:32)
[2017-04-01] MEDS: FAMOTIDINE 20 MG TABLET PO SCH ×2 (09:48→21:16)
[2017-04-01] MEDS: NICOTINE 21 MG/24 HR PATCH.TD24 TD SCH (09:48)
[2017-04-01] MEDS: THIAMINE HCL 100 MG TABLET PO SCH (09:48)
[2017-04-01] MEDS: AMOXICILLIN TR/POT CLAVULANATE 500-125 MG TAB PO SCH ×2 (14:47→21:16)
[2017-04-01] MEDS: LEVOFLOXACIN 750 MG TABLET PO SCH (21:16)
[2017-04-02] MEDS: AMOXICILLIN TR/POT CLAVULANATE 500-125 MG TAB PO SCH ×3 (06:16→20:52)
[2017-04-02] MEDS: OLANZAPINE 2.5 MG TABLET PO SCH (09:59)
[2017-04-02] MEDS: FAMOTIDINE 20 MG TABLET PO SCH ×2 (10:00→20:51)
[2017-04-02] MEDS: MAGNESIUM OXIDE 400 MG TABLET PO SCH ×2 (10:00→17:41)
[2017-04-02] MEDS: THIAMINE HCL 100 MG TABLET PO SCH (10:00)
[2017-04-02] MEDS: NICOTINE 21 MG/24 HR PATCH.TD24 TD SCH (10:00)
[2017-04-02] MEDS ORDERED: ONDANSETRON HCL INJ/PF 4 MG/2 ML SDV IV PRN (11:30)
--- NOTE | 2017-04-02 12:13 | PDOC PROGRESS REPORT ---
Subjective Progress Note for:: 04/01/17 Subjective:: Patient presented a fall causing back pain. Patient was found to have a possible pneumonia. However there were cavitary lesions concerning for possible cancer. Patient was stating that he wanted to go home. After speaking with patient's niece who is his decision maker she stated that his symptoms point the patient states to be evaluated. Patient is post have bronchoscopy during this hospitalization. She further stated that patient gets confused from time to time. He is confused even when he is not drinking. She is concerned that patient may have vascular dementia following his stroke 3-4 years ago. Patient is doing okay although he wants to go home. Patient refused to have another peripheral IV placed. Reason For Visit: FALL,PNA OR CANCER Physical Exam Vital Signs: Selected Entries 04/01/17 19:51 Temperature 98.4 F Temperature Oral Source Pulse Rate 73 Respiratory 14 Rate Blood Pressure 118/66 Blood Pressure 83 Mean BP Location Right Arm BP Position Supine O2 Sat by Pulse 95 Oximetry Oxygen Delivery Room Air Method Percent of 100 Oxygen General appearance: PRESENT: no acute distress, disheveled, thin, well-developed Head exam: PRESENT: normocephalic Eye exam: PRESENT: EOMI. ABSENT: scleral icterus Ear exam: PRESENT: normal external ear exam Mouth exam: PRESENT: moist Neck exam: ABSENT: carotid bruit, JVD, lymphadenopathy, thyromegaly Respiratory exam: PRESENT: clear to auscultation homero. ABSENT: rales, rhonchi, wheezes Cardiovascular exam: PRESENT: RRR. ABSENT: diastolic murmur, rubs, systolic murmur Pulses: PRESENT: normal dorsalis pedis pul Vascular exam: PRESENT: normal capillary refill GI/Abdominal exam: PRESENT: normal bowel sounds, soft. ABSENT: distended, guarding, mass, organolmegaly, rebound, tenderness Rectal exam: PRESENT: deferred Extremities exam: PRESENT: full ROM. ABSENT: calf tenderness, clubbing, pedal edema Neurological exam: PRESENT: alert, awake, oriented to person, oriented to place , oriented to time, oriented to situation, CN II-XII grossly intact. ABSENT: motor sensory deficit Psychiatric exam: PRESENT: appropriate affect, normal mood. ABSENT: homicidal ideation, suicidal ideation Skin exam: PRESENT: dry, intact, warm. ABSENT: cyanosis, rash Results Laboratory Results: 03/30/17 06:22 03/30/17 06:22 03/29/17 23:25 Sputum AFB Smear Concentration - Final 03/29/17 23:25 Sputum Acid Fast Bacilli Smear - Final 03/28/17 22:32 Sputum AFB Smear Concentration - Final 03/28/17 22:32 Sputum Acid Fast Bacilli Smear - Final 03/27/17 03/27/17 03/28/17 16:17 22:15 04:17 Creatine Kinase 479 H 578 H 645 H Troponin I 03/28/17 04:17 Creatine Kinase Troponin I 0.015 Impressions: Chest CT 03/27/17 00:00 IMPRESSION: SPICULATED MASS IN THE LEFT LUNG APEX WITH CENTRAL CAVITARY COMPONENT. THIS IS SUSPICIOUS FOR MALIGNANCY. INFECTIOUS PROCESS WITH CAVITARY PNEUMONIA COULD BE A POSSIBILITY BUT IS LESS LIKELY. THERE IS ALSO A SPICULATED LESION IN THE RIGHT LUNG APEX WHICH MAY ALSO BE MALIGNANT IN NATURE OR COULD REPRESENT FOCAL SCAR. NO OTHER SIGNIFICANT FINDINGS, OTHER THAN CHRONIC EMPHYSEMATOUS CHANGES AND INTERSTITIAL SCARRING. Acute Abdomen Series 03/27/17 08:44 IMPRESSION: Nothing acute. No bowel dilatation. Small amount of fecal material. Head CT 03/27/17 08:59 IMPRESSION: Large subacute/ chronic nonhemorrhagic infarct left MCA territory. EVIDENCE OF ACUTE STROKE: See above. LEFT MCA Thoracic Spine CT 03/27/17 11:03 IMPRESSION: 1. Recent compression fracture of T9. 2. Left apical lung mass. Cervical Spine X-Ray 03/28/17 00:00 IMPRESSION: NO SIGNIFICANT RADIOGRAPHIC FINDING IN THE CERVICAL SPINE. Head MRI 03/28/17 14:55 IMPRESSION: MINIMAL MICROVASCULAR ISCHEMIC CHANGE. Old left MCA infarct. Other findings as noted above EVIDENCE OF ACUTE STROKE: NO. Carotid Doppler Study 03/30/17 00:00 IMPRESSION: NO HEMODYNAMICALLY SIGNIFICANT STENOSIS. Assessment & Plan - Diagnosis (1) Pneumonia Qualifiers: Pneumonia type: due to unspecified organism Laterality: unspecified laterality Lung location: unspecified part of lung Qualified Code(s): J18.9 - Pneumonia, unspecified organism Is this a current diagnosis for this admission?: Yes Plan: Possibly aspiration pneumonia at patient was found down and possible seizing at home. Patient medication switch to p.o. as patient lost his IV. Will continue with Levaquin and Augmentin. (2) Alcoholism /alcohol abuse Is this a current diagnosis for this admission?: Yes Plan: Patient on valium with no clear signs of withdrawal. Will like to wean patient off Valium as this could worsen his mentation considering that he may have underlying cognitive impairment or vascular dementia following his stroke. (3) CVA, old, cognitive deficits Is this a current diagnosis for this admission?: Yes Plan: Patient with residual right hand weakness. Continue supportive care. Patient may have vascular dementia as a result of his CVA. Patient is now oriented to time. He is oriented to person and place. She started on Zyprexa two-point 5 in the AM and 5 mg at night as he tends to become agitated from time to time. Has a decision-maker which is his niece. Her name is Aurelia Arevalo her contact number is [phone]. (4) Cavitating mass of lung Is this a current diagnosis for this admission?: Yes Plan: TB is being ruled out along with other infectious etiology. Patient is also being worked up for possible malignancy. He is currently scheduled for PET scan. Curseen states he will schedule patient for bronched sometimes this week. I informed him that patient decision maker is Ms. Lisa Michaud make phone #[phone]. States that she may not be able to come to the hospital to sign documents due to the weather conditions however she can give verbal consent. (5) Compression fracture of body of thoracic vertebra Is this a current diagnosis for this admission?: Yes Plan: Most likely occurred during the fall. Patient states pain is better controlled and he is able to walk. (6) Fall Qualifiers: Encounter type: initial encounter Qualified Code(s): W19.XXXA - Unspecified fall, initial encounter Is this a current diagnosis for this admission?: Yes Plan: Possible secondary to seizure. Patient more stable on feet. (7) Metabolic acidosis Is this a current diagnosis for this admission?: Yes Plan: Now resolved but could be due to dehydration and or possible seizure from etoh withdrawal resulting in elevated lactic acid. (8) Seizure Is this a current diagnosis for this admission?: Yes Plan: Possible secondary to alcohol withdrawal. Patient on valium for alcohol withdrawal. It is being tapered off. Patient on seizure precautions. Patient with no other seizures. (9) Tobacco abuse Is this a current diagnosis for this admission?: Yes Plan: Will retirement plan counselor and start nicotine patch. - Time Time Spent with patient: Less than 15 minutes Anticipated discharge: SNF Disposition: Per patient's niece he cannot come back to live for her due to his excessive drinking furthermore the home is in better condition. She states that they have no heat and may not have any power. She states that the roof is caving in and the stairs are falling apart. States code enforcement has been out to the home. - Inpatient Certification Medical Necessity: Risk of Complication if Not Cared For in Hospital, Other - Is essentially homeless. Patient requires further evaluation for his cavitary lesions of the lung.
--- NOTE | 2017-04-02 12:21 | PDOC PROGRESS REPORT ---
Subjective Progress Note for:: 04/02/17 Subjective:: Patient presented a fall causing back pain. Patient was found to have a possible pneumonia. However there were cavitary lesions concerning for possible cancer. He is agreeable to having a procedure done. As stated in previous documentation patient condition was discussed with his niece who is his decision maker and she is adamant about patient having this procedure done if it is needed. Hedid eat all his breakfast. Patient still saying he is ready to go but he will stay for the test. Patient is not aware that his living conditions are not suitable and that he cannot return home. Reason For Visit: FALL,PNA OR CANCER Physical Exam Vital Signs: Temp Pulse Resp BP Pulse Ox 98.4 F 75 14 116/54 L 100 04/02/17 03:27 04/02/17 07:00 04/02/17 03:27 04/02/17 03:27 04/02/17 03:27 Intake & Output 04/01/17 04/02/17 04/03/17 06:59 06:59 06:59 Intake Total 1524 337 Balance 1524 337 Weight 70.8 kg 70.1 kg General appearance: PRESENT: no acute distress, disheveled, thin, well-developed Head exam: PRESENT: normocephalic Eye exam: PRESENT: EOMI. ABSENT: scleral icterus Ear exam: PRESENT: normal external ear exam Mouth exam: PRESENT: moist, tongue midline Neck exam: ABSENT: carotid bruit, JVD, lymphadenopathy, thyromegaly Respiratory exam: PRESENT: clear to auscultation homero. ABSENT: rales, rhonchi, wheezes Cardiovascular exam: PRESENT: RRR. ABSENT: diastolic murmur, rubs, systolic murmur Pulses: PRESENT: normal dorsalis pedis pul Vascular exam: PRESENT: normal capillary refill GI/Abdominal exam: PRESENT: normal bowel sounds, soft. ABSENT: distended, guarding, mass, organolmegaly, rebound, tenderness Rectal exam: PRESENT: deferred Extremities exam: PRESENT: full ROM. ABSENT: calf tenderness, clubbing, pedal edema Neurological exam: PRESENT: alert, awake, oriented to person, oriented to place , oriented to time, oriented to situation, CN II-XII grossly intact. ABSENT: motor sensory deficit Psychiatric exam: PRESENT: appropriate affect, normal mood. ABSENT: homicidal ideation, suicidal ideation Skin exam: PRESENT: dry, intact, warm. ABSENT: cyanosis, rash Results Laboratory Results: 03/30/17 06:22 03/30/17 06:22 03/29/17 23:25 Sputum AFB Smear Concentration - Final 03/29/17 23:25 Sputum Acid Fast Bacilli Smear - Final 03/28/17 22:32 Sputum AFB Smear Concentration - Final 03/28/17 22:32 Sputum Acid Fast Bacilli Smear - Final 03/27/17 03/27/17 03/28/17 16:17 22:15 04:17 Creatine Kinase 479 H 578 H 645 H Troponin I 03/28/17 04:17 Creatine Kinase Troponin I 0.015 Impressions: Chest CT 03/27/17 00:00 IMPRESSION: SPICULATED MASS IN THE LEFT LUNG APEX WITH CENTRAL CAVITARY COMPONENT. THIS IS SUSPICIOUS FOR MALIGNANCY. INFECTIOUS PROCESS WITH CAVITARY PNEUMONIA COULD BE A POSSIBILITY BUT IS LESS LIKELY. THERE IS ALSO A SPICULATED LESION IN THE RIGHT LUNG APEX WHICH MAY ALSO BE MALIGNANT IN NATURE OR COULD REPRESENT FOCAL SCAR. NO OTHER SIGNIFICANT FINDINGS, OTHER THAN CHRONIC EMPHYSEMATOUS CHANGES AND INTERSTITIAL SCARRING. Acute Abdomen Series 03/27/17 08:44 IMPRESSION: Nothing acute. No bowel dilatation. Small amount of fecal material. Head CT 03/27/17 08:59 IMPRESSION: Large subacute/ chronic nonhemorrhagic infarct left MCA territory. EVIDENCE OF ACUTE STROKE: See above. LEFT MCA Thoracic Spine CT 03/27/17 11:03 IMPRESSION: 1. Recent compression fracture of T9. 2. Left apical lung mass. Cervical Spine X-Ray 03/28/17 00:00 IMPRESSION: NO SIGNIFICANT RADIOGRAPHIC FINDING IN THE CERVICAL SPINE. Head MRI 03/28/17 14:55 IMPRESSION: MINIMAL MICROVASCULAR ISCHEMIC CHANGE. Old left MCA infarct. Other findings as noted above EVIDENCE OF ACUTE STROKE: NO. Carotid Doppler Study 03/30/17 00:00 IMPRESSION: NO HEMODYNAMICALLY SIGNIFICANT STENOSIS. Assessment & Plan - Diagnosis (1) Pneumonia Qualifiers: Pneumonia type: due to unspecified organism Laterality: unspecified laterality Lung location: unspecified part of lung Qualified Code(s): J18.9 - Pneumonia, unspecified organism Is this a current diagnosis for this admission?: Yes Plan: Possibly aspiration pneumonia at patient was found down and possible seizing at home. Patient medication switch to p.o. as patient lost his IV. Will continue with Levaquin and Augmentin. Today is day 7 of treatment. Continue antibiotics for 3 more days to complete 10 days of antibiotics. (2) Alcoholism /alcohol abuse Is this a current diagnosis for this admission?: Yes Plan: Patient on valium with no clear signs of withdrawal. Discontinue Valium today. (3) CVA, old, cognitive deficits Is this a current diagnosis for this admission?: Yes Plan: Patient with residual right hand weakness. Continue supportive care. Patient may have vascular dementia as a result of his CVA. Patient is now oriented to time. He is oriented to person and place. She started on Zyprexa two-point 5 in the AM and 5 mg at night as he tends to become agitated from time to time. Has a decision-maker which is his niece. Her name is Aurelia Arevalo her contact number is [phone]. (4) Cavitating mass of lung Is this a current diagnosis for this admission?: Yes Plan: TB is being ruled out along with other infectious etiology. Patient is also being worked up for possible malignancy. He is currently scheduled for PET scan today. Curseen states he will schedule patient for bronch times this week. Patient decision maker Aurelia Arevalo can be contacted at [phone]. She states that she is unable to make it here due to the road conditions but can give verbal consent. Patient is actually being ruled out for TB. So far 2 of the cultures are negative the third 1 is still pending. Patient will remain in negative pressure. (5) Compression fracture of body of thoracic vertebra Is this a current diagnosis for this admission?: Yes Plan: Most likely occurred during the fall. Patient states pain is better controlled and he is able to walk. (6) Fall Qualifiers: Encounter type: initial encounter Qualified Code(s): W19.XXXA - Unspecified fall, initial encounter Is this a current diagnosis for this admission?: Yes Plan: Possible secondary to seizure. Patient more stable on feet. (7) Metabolic acidosis Is this a current diagnosis for this admission?: Yes Plan: Now resolved but could be due to dehydration and or possible seizure from etoh withdrawal resulting in elevated lactic acid. (8) Seizure Is this a current diagnosis for this admission?: Yes Plan: Possible secondary to alcohol withdrawal. Patient on valium for alcohol withdrawal. It is being tapered off. Patient on seizure precautions. Patient with no other seizures. 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 (10) Hypokalemia Is this a current diagnosis for this admission?: Yes Plan: Patient given replacement. Will follow up in the morning. (11) Hypomagnesemia Plan: Patient started on replacement will follow up in the morning. - Time Time Spent with patient: Less than 15 minutes Anticipated discharge: SNF - Inpatient Certification Medical Necessity: Significant Comorbidiites Make Outpatient Treatment Too Risky , Need Close Monitoring Due to Risk of Patient Decompensation
--- NOTE | 2017-04-02 12:54 | PDOC PROGRESS REPORT ---
Subjective Progress Note for:: 03/30/17 Subjective:: i am alright Reason For Visit: FALL,PNA OR CANCER Physical Exam Vital Signs: Temp Pulse Resp BP Pulse Ox 98.8 F 61 16 125/67 93 03/30/17 07:30 03/30/17 07:30 03/30/17 07:30 03/30/17 07:30 03/30/17 07:30 Intake & Output 03/29/17 03/30/17 03/31/17 06:59 06:59 06:59 Intake Total 2225 1150 Output Total 2350 700 Balance -125 450 Weight 70.9 kg General appearance: PRESENT: no acute distress, cooperative, thin, well- developed. ABSENT: disheveled, mild distress, morbidly obese, obese, severe distress Head exam: PRESENT: atraumatic, normocephalic Eye exam: PRESENT: conjunctiva pale, EOMI. ABSENT: conjunctival injection, conjunctiva pink, nystagmus, periorbital swelling, scleral icterus Mouth exam: PRESENT: dry mucosa, neck supple, tongue midline. ABSENT: laceration, moist Teeth exam: PRESENT: poor dentation Neck exam: ABSENT: carotid bruit, JVD, lymphadenopathy, thyromegaly, tracheal deviation, tracheostomy Respiratory exam: PRESENT: decreased breath sounds, prolonged expiratory phas, rhonchi, symmetrical, unlabored, wheezes. ABSENT: accessory muscle use, chest wall tenderness, clear to auscultation homero, crackles, rales, retraction, stridor , tachypnea Cardiovascular exam: PRESENT: RRR, +S1, +S2 Pulses: PRESENT: normal radial pulses GI/Abdominal exam: PRESENT: normal bowel sounds, soft. ABSENT: distended, guarding, mass, organolmegaly, rebound, tenderness Extremities exam: PRESENT: full ROM. ABSENT: clubbing, joint swelling Musculoskeletal exam: PRESENT: ambulatory, full ROM. ABSENT: deformity, dislocation Neurological exam: PRESENT: alert, awake Psychiatric exam: PRESENT: flat affect Skin exam: PRESENT: dry, warm Results Laboratory Results: 03/30/17 06:22 03/30/17 06:22 03/30/17 03/30/17 06:22 06:22 WBC 7.3 RBC 3.61 L Hgb 12.3 L Hct 35.8 L MCV 99 H MCH 34.2 H MCHC 34.5 RDW 13.1 Plt Count 146 L Seg Neutrophils % 69.5 Lymphocytes % 14.4 Monocytes % 11.2 Eosinophils % 4.2 Basophils % 0.7 Absolute Neutrophils 5.1 Absolute Lymphocytes 1.1 Absolute Monocytes 0.8 Absolute Eosinophils 0.3 Absolute Basophils 0.0 Sodium 139.2 Potassium 3.4 L Chloride 108 H Carbon Dioxide 23 Anion Gap 8 BUN 10 Creatinine 1.03 Est GFR ( Amer) > 60 Est GFR (Non-Af Amer) > 60 Glucose 102 Calcium 8.6 Phosphorus 3.1 Magnesium 1.5 L 03/27/17 03/27/17 03/28/17 16:17 22:15 04:17 Creatine Kinase 479 H 578 H 645 H Troponin I 03/28/17 04:17 Creatine Kinase Troponin I 0.015 Impressions: Chest CT 03/27/17 00:00 IMPRESSION: SPICULATED MASS IN THE LEFT LUNG APEX WITH CENTRAL CAVITARY COMPONENT. THIS IS SUSPICIOUS FOR MALIGNANCY. INFECTIOUS PROCESS WITH CAVITARY PNEUMONIA COULD BE A POSSIBILITY BUT IS LESS LIKELY. THERE IS ALSO A SPICULATED LESION IN THE RIGHT LUNG APEX WHICH MAY ALSO BE MALIGNANT IN NATURE OR COULD REPRESENT FOCAL SCAR. NO OTHER SIGNIFICANT FINDINGS, OTHER THAN CHRONIC EMPHYSEMATOUS CHANGES AND INTERSTITIAL SCARRING. Acute Abdomen Series 03/27/17 08:44 IMPRESSION: Nothing acute. No bowel dilatation. Small amount of fecal material. Head CT 03/27/17 08:59 IMPRESSION: Large subacute/ chronic nonhemorrhagic infarct left MCA territory. EVIDENCE OF ACUTE STROKE: See above. LEFT MCA Thoracic Spine CT 03/27/17 11:03 IMPRESSION: 1. Recent compression fracture of T9. 2. Left apical lung mass. Cervical Spine X-Ray 03/28/17 00:00 IMPRESSION: NO SIGNIFICANT RADIOGRAPHIC FINDING IN THE CERVICAL SPINE. Head MRI 03/28/17 14:55 IMPRESSION: MINIMAL MICROVASCULAR ISCHEMIC CHANGE. Old left MCA infarct. Other findings as noted above EVIDENCE OF ACUTE STROKE: NO. Assessment & Plan - Diagnosis (1) COPD (chronic obstructive pulmonary disease) Qualifiers: Emphysema type: centrilobular Is this a current diagnosis for this admission?: Yes (2) Cavitating mass of lung Is this a current diagnosis for this admission?: Yes Plan: need informed consent (3) Tobacco abuse Is this a current diagnosis for this admission?: Yes Plan: transdermal nicotine
--- NOTE | 2017-04-02 12:56 | PDOC CONSULTATION ---
Consultation Consult Date: 03/28/17 Attending physician:: TOMAS MART Consult reason:: lung lesions History of Present Illness Admission Date/PCP: 03/27/17 15:21 History of Present Illness: CLAYTON LAWSON is a 56 year old male. This morning, he was in the living room. His niece was in another room and heard a thump. When she came to check on the patient he had fallen face down. He was noted to be foaming at the mouth. The patient thought that he had another stroke. Apparently, this happened when he had a stroke 5 years ago. Please note that the patient is a very poor historian. The patient was brought into the emergency department and found to have a leukocytosis, lactic acidosis and non-anion gap metabolic acidosis. He has a fairly new compression fracture and evidence of a left apical lung mass and right upper lobe cavitary lesion. These findings are concerning for malignancy and/or infection to include tuberculosis. Therefore, the patient has been isolated. Apparently, the patient drinks all day long. He told me that he drinks 1 beer once in a while but according to his niece he drinks from 4:00 in the afternoon all throughout the evening. The patient states that he has been very depressed since his stroke. He has had residual right arm weakness. He has trouble understanding and articulating his speech. He lost his job because of the stroke. The patient was [place]. He has never been in assisted. He does not have any known TB contacts. He has not traveled outside of the [place]. He denies fevers, chills, night sweats, weight loss and hemoptysis. In fact, he denies having a cough at all. 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 Lives with: Family - osito Smoking Status: Current Every Day Smoker Cigarettes Packs Per Day: 2 Number of Years Smokin Last Time Smoked: 24hrs Passive smoke exposure as: Both Frequency of Alcohol Use: Heavy Hx Recreational Drug Use: No Hx Prescription Drug Abuse: No Do you have pets?: No Have you had any respiratory illnesses as a child?: No Have you been exposed to any sick contacts recently?: No Have you had any recent respiratory illnesses?: No Have you travelled outside of [place] in the past 12 months?: No - Advance Directive Resuscitation Status: Full Code Family History Family History: CAD, CVA, Hypertension Parental Family History Reviewed: No Children Family History Reviewed: No Sibling(s) Family History Reviewed.: No Medication/Allergy Home Medications: No Home Medications 03/27/17 Allergies/Adverse Reactions: No Known Allergies Allergy (Verified 03/27/17 09:14) Review of Systems ROS unobtainable: Due to mental status Physical Exam Vital Signs: Temp Pulse Resp BP Pulse Ox 98.3 F 79 16 126/62 H 93 03/28/17 16:58 03/28/17 16:58 03/28/17 16:58 03/28/17 16:58 03/28/17 16:58 Intake & Output 03/27/17 03/28/17 03/29/17 06:59 06:59 06:59 Intake Total 1050 1250 Output Total 800 1900 Balance 250 -650 Weight 69.7 kg General appearance: PRESENT: no acute distress, cooperative, disheveled. ABSENT : mild distress, morbidly obese, severe distress Head exam: ABSENT: atraumatic, normocephalic Eye exam: PRESENT: conjunctiva pale, EOMI, scleral icterus. ABSENT: conjunctival injection, conjunctiva pink, nystagmus, periorbital swelling Mouth exam: PRESENT: dry mucosa, neck supple, tongue midline. ABSENT: laceration, moist Teeth exam: PRESENT: poor dentation Neck exam: ABSENT: carotid bruit, JVD, lymphadenopathy, thyromegaly, tracheal deviation, tracheostomy Respiratory exam: PRESENT: crackles, decreased breath sounds, prolonged expiratory phas, rhonchi, symmetrical, unlabored, wheezes. ABSENT: accessory muscle use, chest wall tenderness, clear to auscultation homero, retraction, stridor, tachypnea Cardiovascular exam: PRESENT: RRR, +S1. ABSENT: irregular rhythm, rubs Pulses: PRESENT: normal radial pulses GI/Abdominal exam: PRESENT: normal bowel sounds, soft. ABSENT: distended, guarding, mass, organolmegaly, rebound, tenderness Extremities exam: ABSENT: clubbing, joint swelling Musculoskeletal exam: PRESENT: ambulatory. ABSENT: deformity, dislocation Neurological exam: PRESENT: awake Psychiatric exam: PRESENT: flat affect Skin exam: PRESENT: dry, warm Results Laboratory Results: 03/28/17 07:10 03/28/17 04:17 03/27/17 03/28/17 03/28/17 19:15 04:17 04:17 WBC Cancelled RBC Cancelled Hgb Cancelled Hct Cancelled MCV Cancelled MCH Cancelled MCHC Cancelled RDW Cancelled Plt Count Cancelled Seg Neutrophils % Cancelled Lymphocytes % Cancelled Monocytes % Cancelled Eosinophils % Cancelled Basophils % Cancelled Absolute Neutrophils Cancelled Absolute Lymphocytes Cancelled Absolute Monocytes Cancelled Absolute Eosinophils Cancelled Absolute Basophils Cancelled Sodium 142.2 Potassium 3.6 Chloride 114 H Carbon Dioxide 16 L Anion Gap 12 BUN 10 Creatinine 1.16 Est GFR ( Amer) > 60 Est GFR (Non-Af Amer) > 60 Glucose 83 Lactic Acid 1.0 Calcium 8.9 Phosphorus 3.1 Magnesium 2.0 D TSH 03/28/17 03/28/17 04:17 07:10 WBC 8.9 RBC 3.77 L Hgb 13.0 L D Hct 37.6 L MCV 100 H D MCH 34.4 H MCHC 34.5 RDW 13.3 Plt Count 162 Seg Neutrophils % 82.5 H Lymphocytes % 7.2 L Monocytes % 8.9 Eosinophils % 1.0 Basophils % 0.4 Absolute Neutrophils 7.3 Absolute Lymphocytes 0.6 Absolute Monocytes 0.8 Absolute Eosinophils 0.1 Absolute Basophils 0.0 Sodium Potassium Chloride Carbon Dioxide Anion Gap BUN Creatinine Est GFR ( Amer) Est GFR (Non-Af Amer) Glucose Lactic Acid Calcium Phosphorus Magnesium TSH 1.96 03/27/17 03/27/17 03/28/17 16:17 22:15 04:17 Creatine Kinase 479 H 578 H 645 H Troponin I 03/28/17 04:17 Creatine Kinase Troponin I 0.015 Impressions: Chest CT 03/27/17 00:00 IMPRESSION: SPICULATED MASS IN THE LEFT LUNG APEX WITH CENTRAL CAVITARY COMPONENT. THIS IS SUSPICIOUS FOR MALIGNANCY. INFECTIOUS PROCESS WITH CAVITARY PNEUMONIA COULD BE A POSSIBILITY BUT IS LESS LIKELY. THERE IS ALSO A SPICULATED LESION IN THE RIGHT LUNG APEX WHICH MAY ALSO BE MALIGNANT IN NATURE OR COULD REPRESENT FOCAL SCAR. NO OTHER SIGNIFICANT FINDINGS, OTHER THAN CHRONIC EMPHYSEMATOUS CHANGES AND INTERSTITIAL SCARRING. Acute Abdomen Series 03/27/17 08:44 IMPRESSION: Nothing acute. No bowel dilatation. Small amount of fecal material. Head CT 03/27/17 08:59 IMPRESSION: Large subacute/ chronic nonhemorrhagic infarct left MCA territory. EVIDENCE OF ACUTE STROKE: See above. LEFT MCA Thoracic Spine CT 03/27/17 11:03 IMPRESSION: 1. Recent compression fracture of T9. 2. Left apical lung mass. Cervical Spine X-Ray 03/28/17 00:00 IMPRESSION: NO SIGNIFICANT RADIOGRAPHIC FINDING IN THE CERVICAL SPINE. Head MRI 03/28/17 14:55 IMPRESSION: MINIMAL MICROVASCULAR ISCHEMIC CHANGE. Old left MCA infarct. Other findings as noted above EVIDENCE OF ACUTE STROKE: NO. Assessment & Plan - Diagnosis (1) COPD (chronic obstructive pulmonary disease) Qualifiers: Emphysema type: centrilobular Is this a current diagnosis for this admission?: Yes Plan: Generic Name Dose Route Start Last Admin Trade Name Freq PRN Reason Stop Dose Admin Albuterol/Ipratropium 3 ml 03/27/17 15:25 Duoneb 3 Ml Ampul NEB 04/26/17 15:24 [id number] PRN SHORTNESS OF BREATH Nicotine 1 each 03/31/17 10:00 04/02/17 10:00 Nicoderm 21 Mg/24 Hr Transderm Patch TD 04/30/17 09:59 Not Given DAILY JIGNA (2) Cavitating mass of lung Is this a current diagnosis for this admission?: Yes (3) Tobacco abuse Is this a current diagnosis for this admission?: Yes Plan: transdermal nicotine
--- NOTE | 2017-04-02 12:59 | PDOC PROGRESS REPORT ---
Subjective Progress Note for:: 03/29/17 Subjective:: i feel better Reason For Visit: FALL,PNA OR CANCER Physical Exam Vital Signs: Temp Pulse Resp BP Pulse Ox 98.5 F 66 16 120/78 93 03/29/17 04:30 03/29/17 08:00 03/29/17 08:00 03/29/17 04:30 03/29/17 08:00 Intake & Output 03/28/17 03/29/17 03/30/17 06:59 06:59 06:59 Intake Total 1050 2225 Output Total 800 2350 Balance 250 -125 Weight 69.7 kg 70.9 kg General appearance: PRESENT: no acute distress, cooperative, disheveled, thin. ABSENT: mild distress, morbidly obese, obese, severe distress Head exam: PRESENT: atraumatic, normocephalic Eye exam: PRESENT: conjunctiva pale, EOMI. ABSENT: conjunctival injection, conjunctiva pink, nystagmus, periorbital swelling, scleral icterus Mouth exam: PRESENT: dry mucosa, neck supple, tongue midline. ABSENT: laceration, moist Neck exam: ABSENT: carotid bruit, JVD, lymphadenopathy, thyromegaly, tracheal deviation, tracheostomy Respiratory exam: PRESENT: decreased breath sounds, prolonged expiratory phas, rales, rhonchi, symmetrical, unlabored. ABSENT: accessory muscle use, chest wall tenderness, clear to auscultation homero, crackles, retraction, stridor, tachypnea Cardiovascular exam: PRESENT: RRR, +S1, +S2 Pulses: PRESENT: normal radial pulses GI/Abdominal exam: PRESENT: ascites Extremities exam: ABSENT: clubbing, joint swelling Musculoskeletal exam: PRESENT: ambulatory. ABSENT: deformity, dislocation Neurological exam: PRESENT: awake Skin exam: PRESENT: dry, warm Results Laboratory Results: 03/29/17 03:53 03/29/17 03:53 03/29/17 03/29/17 03:53 03:53 WBC 8.5 RBC 3.58 L Hgb 12.2 L Hct 35.7 L MCV 100 H MCH 34.1 H MCHC 34.2 RDW 13.3 Plt Count 151 Seg Neutrophils % 70.7 Lymphocytes % 13.7 Monocytes % 11.0 Eosinophils % 3.8 Basophils % 0.8 Absolute Neutrophils 6.0 Absolute Lymphocytes 1.2 Absolute Monocytes 0.9 Absolute Eosinophils 0.3 Absolute Basophils 0.1 Sodium 141.0 Potassium 3.3 L Chloride 109 H Carbon Dioxide 20 L Anion Gap 12 BUN 8 Creatinine 1.07 Est GFR ( Amer) > 60 Est GFR (Non-Af Amer) > 60 Glucose 71 L Calcium 9.0 Phosphorus 2.6 Magnesium 1.5 L 03/27/17 03/27/17 03/28/17 16:17 22:15 04:17 Creatine Kinase 479 H 578 H 645 H Troponin I 03/28/17 04:17 Creatine Kinase Troponin I 0.015 Impressions: Chest CT 03/27/17 00:00 IMPRESSION: SPICULATED MASS IN THE LEFT LUNG APEX WITH CENTRAL CAVITARY COMPONENT. THIS IS SUSPICIOUS FOR MALIGNANCY. INFECTIOUS PROCESS WITH CAVITARY PNEUMONIA COULD BE A POSSIBILITY BUT IS LESS LIKELY. THERE IS ALSO A SPICULATED LESION IN THE RIGHT LUNG APEX WHICH MAY ALSO BE MALIGNANT IN NATURE OR COULD REPRESENT FOCAL SCAR. NO OTHER SIGNIFICANT FINDINGS, OTHER THAN CHRONIC EMPHYSEMATOUS CHANGES AND INTERSTITIAL SCARRING. Acute Abdomen Series 03/27/17 08:44 IMPRESSION: Nothing acute. No bowel dilatation. Small amount of fecal material. Head CT 03/27/17 08:59 IMPRESSION: Large subacute/ chronic nonhemorrhagic infarct left MCA territory. EVIDENCE OF ACUTE STROKE: See above. LEFT MCA Thoracic Spine CT 03/27/17 11:03 IMPRESSION: 1. Recent compression fracture of T9. 2. Left apical lung mass. Cervical Spine X-Ray 03/28/17 00:00 IMPRESSION: NO SIGNIFICANT RADIOGRAPHIC FINDING IN THE CERVICAL SPINE. Head MRI 03/28/17 14:55 IMPRESSION: MINIMAL MICROVASCULAR ISCHEMIC CHANGE. Old left MCA infarct. Other findings as noted above EVIDENCE OF ACUTE STROKE: NO. Assessment & Plan - Diagnosis (1) COPD (chronic obstructive pulmonary disease) Qualifiers: Emphysema type: centrilobular Is this a current diagnosis for this admission?: Yes Plan: Generic Name Dose Route Start Last Admin Trade Name Freq PRN Reason Stop Dose Admin Albuterol/Ipratropium 3 ml 03/27/17 15:25 Duoneb 3 Ml Ampul NEB 04/26/17 15:24 [id number] PRN SHORTNESS OF BREATH Nicotine 1 each 03/31/17 10:00 04/02/17 10:00 Nicoderm 21 Mg/24 Hr Transderm Patch TD 04/30/17 09:59 Not Given DAILY JIGNA (2) CVA, old, cognitive deficits Is this a current diagnosis for this admission?: Yes Plan: need informed consent from POA (3) Cavitating mass of lung Is this a current diagnosis for this admission?: Yes (4) Tobacco abuse Is this a current diagnosis for this admission?: Yes Plan: transdermal nicotine
[2017-04-02] MEDS ORDERED: DEXTROSE 50%-WATER 25 GM/50 ML DISP.SYRIN IV PRN ×2 (13:00)
[2017-04-02] MEDS ORDERED: DEXTROSE 40% GEL 15 GM TUBE PO PRN ×2 (13:00)
[2017-04-02] MEDS ORDERED: GLUCAGON,HUMAN RECOMB 1 MG INJ SUBCUT PRN (13:00)
[2017-04-02] MEDS: POTASSIUM CHLORIDE 10 MEQ TABLET.SA PO SCH ×3 (13:18→23:59)
--- NOTE | 2017-04-02 14:19 | RADIOLOGY REPORT (SQ) ---
EXAM DESCRIPTION: NM WHOLE BODY BONE SCAN COMPLETED DATE/TIME: 04/02/2017 1:32 pm REASON FOR STUDY: lung mass COMPARISON: CT chest 03/27/2017 CT thoracic spine 03/27/2017 RADIONUCLIDE AND DOSE: 21 millicuries Tc99m MDP. The route of agent administration: Intravenous. ADDITIONAL DRUGS AND DOSES: None. TECHNIQUE: Routine delayed images at 3 hours post radionuclide injection acquired of the bony skelet on including anterior and posterior whole-body projections and additional focused images as needed. LIMITATIONS: None. FINDINGS: BONES: There is bandlike increased uptake at the T9 vertebral body. This correlates with about 50% compression deformity on prior imaging studies from 03/27/2017. This likely an acute or suba cute compression deformity might be amenable to kyphoplasty for pain management. Prior CT exam 03/27/2017 demonstrates a T4 compression deformity with 50% loss of height. No increased uptake volume bone scan. This is likely chronic. KIDNEYS: Symmetric excretion without obstruction. OTHER: No other significant finding. IMPRESSION: A bandlike increased uptake at T9 from acute or subacute infarction peptic COMMENT: Quality measure 147: Current bone scan is compared with any available plain radiographs, p rior bone scans, and CT/MRI. TECHNICAL DOCUMENTATION: JOB ID: [id number] [employer]- All Rights Reserved
--- NOTE | 2017-04-02 18:12 | PDOC PROGRESS REPORT ---
Subjective Progress Note for:: 04/02/17 Subjective:: i feel better Reason For Visit: FALL,PNA OR CANCER Physical Exam Vital Signs: Temp Pulse Resp BP Pulse Ox 98.9 F 75 16 99/53 L 96 04/02/17 15:36 04/02/17 15:36 04/02/17 15:36 04/02/17 15:36 04/02/17 15:36 Intake & Output 04/01/17 04/02/17 04/03/17 06:59 06:59 06:59 Intake Total 1524 337 10 Balance 1524 337 10 Weight 70.8 kg 70.1 kg General appearance: PRESENT: no acute distress, cooperative, thin. ABSENT: disheveled, mild distress, morbidly obese, obese, severe distress Head exam: PRESENT: atraumatic, normocephalic Eye exam: PRESENT: conjunctiva pale, EOMI. ABSENT: conjunctival injection, conjunctiva pink, nystagmus, periorbital swelling, scleral icterus Mouth exam: PRESENT: dry mucosa, neck supple, tongue midline. ABSENT: laceration, moist Teeth exam: PRESENT: poor dentation Neck exam: ABSENT: carotid bruit, JVD, lymphadenopathy, thyromegaly, tracheal deviation, tracheostomy Respiratory exam: PRESENT: crackles, decreased breath sounds, prolonged expiratory phas, rhonchi, unlabored, wheezes. ABSENT: accessory muscle use, chest wall tenderness, clear to auscultation homero, rales, retraction, stridor, tachypnea Cardiovascular exam: PRESENT: RRR, +S1, +S2 Pulses: PRESENT: normal radial pulses GI/Abdominal exam: PRESENT: diminished bowel sounds Extremities exam: ABSENT: clubbing, joint swelling Musculoskeletal exam: PRESENT: ambulatory. ABSENT: deformity, dislocation Neurological exam: PRESENT: awake Skin exam: PRESENT: dry, warm Results Laboratory Results: 03/30/17 06:22 03/30/17 06:22 03/29/17 23:25 Sputum Gram Stain - Final 03/29/17 23:25 Sputum Sputum Culture - Final Group F Beta Streptococcus C.albicans/C.dubliniensis Normal Leonarda Absent 03/29/17 23:25 Sputum AFB Smear Concentration - Final 03/29/17 23:25 Sputum Acid Fast Bacilli Smear - Final 03/28/17 22:32 Sputum AFB Smear Concentration - Final 03/28/17 22:32 Sputum Acid Fast Bacilli Smear - Final 03/27/17 03/27/17 03/28/17 16:17 22:15 04:17 Creatine Kinase 479 H 578 H 645 H Troponin I 03/28/17 04:17 Creatine Kinase Troponin I 0.015 Impressions: Chest CT 03/27/17 00:00 IMPRESSION: SPICULATED MASS IN THE LEFT LUNG APEX WITH CENTRAL CAVITARY COMPONENT. THIS IS SUSPICIOUS FOR MALIGNANCY. INFECTIOUS PROCESS WITH CAVITARY PNEUMONIA COULD BE A POSSIBILITY BUT IS LESS LIKELY. THERE IS ALSO A SPICULATED LESION IN THE RIGHT LUNG APEX WHICH MAY ALSO BE MALIGNANT IN NATURE OR COULD REPRESENT FOCAL SCAR. NO OTHER SIGNIFICANT FINDINGS, OTHER THAN CHRONIC EMPHYSEMATOUS CHANGES AND INTERSTITIAL SCARRING. Acute Abdomen Series 03/27/17 08:44 IMPRESSION: Nothing acute. No bowel dilatation. Small amount of fecal material. Head CT 03/27/17 08:59 IMPRESSION: Large subacute/ chronic nonhemorrhagic infarct left MCA territory. EVIDENCE OF ACUTE STROKE: See above. LEFT MCA Thoracic Spine CT 03/27/17 11:03 IMPRESSION: 1. Recent compression fracture of T9. 2. Left apical lung mass. Cervical Spine X-Ray 03/28/17 00:00 IMPRESSION: NO SIGNIFICANT RADIOGRAPHIC FINDING IN THE CERVICAL SPINE. Head MRI 03/28/17 14:55 IMPRESSION: MINIMAL MICROVASCULAR ISCHEMIC CHANGE. Old left MCA infarct. Other findings as noted above EVIDENCE OF ACUTE STROKE: NO. Carotid Doppler Study 03/30/17 00:00 IMPRESSION: NO HEMODYNAMICALLY SIGNIFICANT STENOSIS. Body Scan Nuclear Medicine 04/02/17 10:00 IMPRESSION: A bandlike increased uptake at T9 from acute or subacute infarction peptic Assessment & Plan - Diagnosis (1) COPD (chronic obstructive pulmonary disease) Qualifiers: Emphysema type: centrilobular Is this a current diagnosis for this admission?: Yes Plan: Generic Name Dose Route Start Last Admin Trade Name Freq PRN Reason Stop Dose Admin Albuterol/Ipratropium 3 ml 03/27/17 15:25 Duoneb 3 Ml Ampul NEB 04/26/17 15:24 [id number] PRN SHORTNESS OF BREATH Nicotine 1 each 03/31/17 10:00 04/02/17 10:00 Nicoderm 21 Mg/24 Hr Transderm Patch TD 04/30/17 09:59 Not Given DAILY JIGNA (2) CVA, old, cognitive deficits Is this a current diagnosis for this admission?: Yes Plan: need informed consent from POA (3) Cavitating mass of lung Is this a current diagnosis for this admission?: Yes Plan: need informed consent;Schedule for bronchoscopy 930 tomorrow morning (4) Tobacco abuse Is this a current diagnosis for this admission?: Yes Plan: transdermal nicotine
[2017-04-02] MEDS: TRAZODONE HCL 50 MG TABLET PO SCH (20:51)
[2017-04-02] MEDS: LEVOFLOXACIN 750 MG TABLET PO SCH (20:51)
[2017-04-02] MEDS: OLANZAPINE 5 MG TABLET PO SCH (20:52)
[2017-04-03] MEDS: AMOXICILLIN TR/POT CLAVULANATE 500-125 MG TAB PO SCH ×3 (05:24→21:00)
[2017-04-03 05:28] LABS: INTERNATIONAL RATION (INR) 0.91; PROTHROMBIN TIME 12.9 SEC (11.4-15.4)
[2017-04-03 05:30] LABS: ANION GAP 8 (5-19); BLOOD UREA NITROGEN 19 mg/dL (7-20); CALCIUM 9.4 mg/dL (8.4-10.2); CARBON DIOXIDE 27 mmol/L (22-30); CHLORIDE 106 mmol/L (98-107); GLUCOSE 90 mg/dL (75-110); MAGNESIUM 1.7 mg/dL (1.6-2.3); POTASSIUM 4.5 mmol/L (3.6-5.0); SODIUM 141.3 mmol/L (137-145)
--- NOTE | 2017-04-03 08:31 | EEG PRO FEE REPORT ---
EEG INTERPRETATION PATIENT NAME: CLAYTON LAWSON ROOM#: 301 ORDER#: [id number] DATE OF STUDY: 03/29/2017 : 1960 REFERRING MD: Terence Han MD DIAGNOSIS: Seizure/Syncope REPORT The background activity while awake is 8 Hz alpha of medium voltage and as the patient becomes drowsy the record attenuates and slows somewhat down to 6-7 Hz theta. There is occasional motion artifact but no clear focal slowing, amplitude asymmetry, or epileptiform or other paroxysmal discharges are noted. IMPRESSION Normal awake and drowsy EEG for stated age. INTERPRETING PHYSICIAN: ANI AQUINO M.D. /: [id number] TT: [id number] ID: [id number] /: [id number] TD: 1332 JOB: [id number] cc:Cristofer BATISTA M.D. >
[2017-04-03] MEDS ORDERED: LIDOCAINE 2% INJ (20 MG/ML) 20 ML MDV ONE (08:41)
[2017-04-03] MEDS ORDERED: EPINEPHRINE INJ 1 MG/10 ML DISP.SYRIN ONE (08:41)
[2017-04-03] MEDS ORDERED: FENTANYL CITRATE INJ/PF 100 MCG/2 ML AMPUL ONE (09:12)
[2017-04-03] MEDS ORDERED: PROPOFOL INJ 200 MG/20 ML VIAL IV ONE (09:13)
[2017-04-03] MEDS ORDERED: MIDAZOLAM 2 MG/2 ML INJ ONE (09:13)
[2017-04-03] MEDS ORDERED: DIPHENHYDRAMINE HCL 50 MG/ML VIAL IV PRN (10:33)
[2017-04-03] MEDS ORDERED: PROMETHAZINE HCL INJ 25 MG/1 ML VIAL IV PRN (10:33)
[2017-04-03] MEDS ORDERED: FENTANYL CITRATE INJ/PF 100 MCG/2 ML AMPUL IV PRN ×3 (10:33)
--- NOTE | 2017-04-03 10:59 | RADIOLOGY REPORT (SQ) ---
EXAM DESCRIPTION: CHEST SINGLE VIEW COMPLETED DATE/TIME: 04/03/2017 10:48 am REASON FOR STUDY: S/P Lung [employer]osp[employer] COMPARISON: 03/27/2017 CT and radiographs. NUMBER OF VIEWS: One view. TECHNIQUE: Single frontal radiographic view of the chest acquired. LIMITATIONS: None. FINDINGS: LUNGS AND PLEURA: Faint distortion in the left upper lobe consistent with known lesion her e. No pneumothorax. Slight progressive airspace disease in the left base. There is volume loss and elevated hemidiaphragm here. Right lung remains relatively clear. MEDIASTINUM AND HILAR STRUCTURES: No masses. Contour normal. HEART AND VASCULAR STRUCTURES: Heart normal in size. Normal vasculature. BONES: No acute findings. HARDWARE: None in the chest. OTHER: No other significant finding. IMPRESSION: 1. Worsening aeration left base. Otherwise stable chest. No pneumothorax. TECHNICAL DOCUMENTATION: JOB ID: [id number] 2015 [employer]- All Rights Reserved
[2017-04-03 11:43] LABS: FLUID APPEARANCE CLOUDY; FLUID COLOR STRAW; FLUID VISCOSITY MODERATELY VISCOUS
[2017-04-03 11:51] LABS: FLUID TYPE BRONCHIAL LAVAGE
[2017-04-03] MEDS: FAMOTIDINE 20 MG TABLET PO SCH ×2 (11:53→21:00)
[2017-04-03] MEDS: MAGNESIUM OXIDE 400 MG TABLET PO SCH ×2 (11:54→17:34)
[2017-04-03] MEDS: OLANZAPINE 2.5 MG TABLET PO SCH (11:55)
[2017-04-03] MEDS: THIAMINE HCL 100 MG TABLET PO SCH (11:55)
[2017-04-03] MEDS: NICOTINE 21 MG/24 HR PATCH.TD24 TD SCH (11:56)
[2017-04-03] MEDS ORDERED: INFLUENZA ADLT QUAD (36MOS+) 2017-18 VAC 0.5 ML SYR IM PRN (12:33)
[2017-04-03] MEDS ORDERED: ONDANSETRON HCL INJ/PF 4 MG/2 ML SDV ONE (13:29)
[2017-04-03] MEDS ORDERED: LIDOCAINE 2% INJ-PF (20 MG/ML) 2 ML AMPUL ONE (13:29)
[2017-04-03] MEDS ORDERED: DEXAMETHASONE SOD PHOSPHATE INJ 4 MG/1 ML VIAL ONE (13:29)
[2017-04-03] MEDS ORDERED: SUCCINYLCHOLINE CHLORIDE INJ 200 MG/10 ML VIAL ONE (13:29)
--- NOTE | 2017-04-03 16:00 | RADIOLOGY REPORT (SQ) ---
EXAM DESCRIPTION: CHEST SINGLE VIEW; NO CHG FLUORO COMPLETED DATE/TIME: 04/03/2017 3:30 pm REASON FOR STUDY: BRONCHOSCOPY LEFT UPPER LOBE ASSISTED WITH FLUORO IN OR COMPARISON: CT chest 03/27/2007 FLUOROSCOPY TIME: 3.2 minutes 1 C-arm image saved to PACS. TECHNIQUE: Intra-operative images acquired during surgical procedure to evaluate progress. NUMBER OF IMAGES: 1 C-arm image LIMITATIONS: None. FINDINGS: Intra procedural imaging and fluoro during bronchoscopy. Please see the operative report for further details IMPRESSION: Intra procedural imaging and fluoro COMMENT: Quality ID [id number]: Final reports for procedures using fluoroscopy that document radiation exp osure indices, or exposure time and number of fluorographic images (if radiation exposure indices are not available) Please consult full operative report of the attending physician for description of the procedure. TECHNICAL DOCUMENTATION: JOB ID: [id number] [email or web address]- All Rights Reserved
--- NOTE | 2017-04-03 16:09 | PDOC PROGRESS REPORT ---
Subjective Progress Note for:: 04/03/17 Subjective:: Patient presented a fall causing back pain. Patient was found to have a possible pneumonia. However there were cavitary lesions concerning for possible cancer. Patient is status post bronch. Patient is doing well. Patient states that he is going home. Patient's niece has not told him that he cannot come back home. Reason For Visit: FALL,PNA OR CANCER Physical Exam Vital Signs: Temp Pulse Resp BP Pulse Ox 98.1 F 83 17 109/67 98 04/03/17 14:17 04/03/17 14:17 04/03/17 14:17 04/03/17 14:17 04/03/17 14:17 Intake & Output 04/02/17 04/03/17 04/04/17 06:59 06:59 06:59 Intake Total 337 435 570 Output Total 0 Balance 337 435 570 Weight 70.1 kg 67.5 kg General appearance: PRESENT: no acute distress, well-developed, well-nourished Head exam: PRESENT: atraumatic, normocephalic Eye exam: PRESENT: conjunctiva pink, EOMI, PERRLA. ABSENT: scleral icterus Ear exam: PRESENT: normal external ear exam Mouth exam: PRESENT: moist, tongue midline Neck exam: ABSENT: carotid bruit, JVD, lymphadenopathy, thyromegaly Respiratory exam: PRESENT: clear to auscultation homero. ABSENT: rales, rhonchi, wheezes Cardiovascular exam: PRESENT: RRR. ABSENT: diastolic murmur, rubs, systolic murmur Pulses: PRESENT: normal dorsalis pedis pul Vascular exam: PRESENT: normal capillary refill GI/Abdominal exam: PRESENT: normal bowel sounds, soft. ABSENT: distended, guarding, mass, organolmegaly, rebound, tenderness Rectal exam: PRESENT: deferred Extremities exam: PRESENT: full ROM. ABSENT: calf tenderness, clubbing, pedal edema Neurological exam: PRESENT: alert, awake, oriented to person, CN II-XII grossly intact. ABSENT: motor sensory deficit Psychiatric exam: PRESENT: appropriate affect, normal mood. ABSENT: homicidal ideation, suicidal ideation Skin exam: PRESENT: dry, intact, warm. ABSENT: cyanosis, rash Results Laboratory Results: 03/30/17 06:22 04/03/17 03:56 04/03/17 04/03/17 03:56 10:16 Sodium 141.3 Potassium 4.5 Chloride 106 Carbon Dioxide 27 Anion Gap 8 BUN 19 Creatinine 1.29 H Est GFR ( Amer) > 60 Est GFR (Non-Af Amer) 58 L Glucose 90 Calcium 9.4 Magnesium 1.7 Fluid Type BRONCHIAL LAVAGE Fluid Source Fluid Color STRAW Fluid Appearance CLOUDY Fluid Viscosity MODERATELY VISCOUS Fluid WBC 83 Fluid RBC 191 03/30/17 18:30 Sputum AFB Smear Concentration - Final 03/30/17 18:30 Sputum Acid Fast Bacilli Smear - Final 03/29/17 23:25 Sputum Gram Stain - Final 03/29/17 23:25 Sputum Sputum Culture - Final Group F Beta Streptococcus C.albicans/C.dubliniensis Normal Leonarda Absent 03/29/17 23:25 Sputum AFB Smear Concentration - Final 03/29/17 23:25 Sputum Acid Fast Bacilli Smear - Final 03/28/17 22:32 Sputum AFB Smear Concentration - Final 03/28/17 22:32 Sputum Acid Fast Bacilli Smear - Final 03/27/17 03/27/17 03/28/17 16:17 22:15 04:17 Creatine Kinase 479 H 578 H 645 H Troponin I 03/28/17 04:17 Creatine Kinase Troponin I 0.015 Impressions: Chest CT 03/27/17 00:00 IMPRESSION: SPICULATED MASS IN THE LEFT LUNG APEX WITH CENTRAL CAVITARY COMPONENT. THIS IS SUSPICIOUS FOR MALIGNANCY. INFECTIOUS PROCESS WITH CAVITARY PNEUMONIA COULD BE A POSSIBILITY BUT IS LESS LIKELY. THERE IS ALSO A SPICULATED LESION IN THE RIGHT LUNG APEX WHICH MAY ALSO BE MALIGNANT IN NATURE OR COULD REPRESENT FOCAL SCAR. NO OTHER SIGNIFICANT FINDINGS, OTHER THAN CHRONIC EMPHYSEMATOUS CHANGES AND INTERSTITIAL SCARRING. Acute Abdomen Series 03/27/17 08:44 IMPRESSION: Nothing acute. No bowel dilatation. Small amount of fecal material. Head CT 03/27/17 08:59 IMPRESSION: Large subacute/ chronic nonhemorrhagic infarct left MCA territory. EVIDENCE OF ACUTE STROKE: See above. LEFT MCA Thoracic Spine CT 03/27/17 11:03 IMPRESSION: 1. Recent compression fracture of T9. 2. Left apical lung mass. Cervical Spine X-Ray 03/28/17 00:00 IMPRESSION: NO SIGNIFICANT RADIOGRAPHIC FINDING IN THE CERVICAL SPINE. Head MRI 03/28/17 14:55 IMPRESSION: MINIMAL MICROVASCULAR ISCHEMIC CHANGE. Old left MCA infarct. Other findings as noted above EVIDENCE OF ACUTE STROKE: NO. Carotid Doppler Study 03/30/17 00:00 IMPRESSION: NO HEMODYNAMICALLY SIGNIFICANT STENOSIS. Body Scan Nuclear Medicine 04/02/17 10:00 IMPRESSION: A bandlike increased uptake at T9 from acute or subacute infarction peptic Chest X-Ray 04/03/17 13:03 IMPRESSION: 1. Worsening aeration left base. Otherwise stable chest. No pneumothorax. Assessment & Plan - Diagnosis (1) Pneumonia Qualifiers: Pneumonia type: due to unspecified organism Laterality: unspecified laterality Lung location: unspecified part of lung Qualified Code(s): J18.9 - Pneumonia, unspecified organism Is this a current diagnosis for this admission?: Yes Plan: Possibly aspiration pneumonia at patient was found down and possible seizing at home. Patient medication switch to p.o. as patient lost his IV. Will continue with Levaquin and Augmentin. Today is day 8 of treatment. Continue antibiotics for 2 more days to complete 10 days of antibiotics. (2) Alcoholism /alcohol abuse Is this a current diagnosis for this admission?: Yes Plan: Patient on valium with no clear signs of withdrawal. Discontinue Valium. (3) CVA, old, cognitive deficits Is this a current diagnosis for this admission?: Yes Plan: Patient with residual right hand weakness. Continue supportive care. Patient may have vascular dementia as a result of his CVA. Patient is now oriented to time. He is oriented to person and place. Continue Zyprexa two-point 5 in the AM and 5 mg at night as he tends to become agitated from time to time. (4) Cavitating mass of lung Is this a current diagnosis for this admission?: Yes Plan: TB is being ruled out along with other infectious etiology. Patient is also being worked up for possible malignancy. He is currently scheduled for PET scan today. Curseen states he will schedule patient for bronch times this week. Patient decision maker Aurelia Mickey can be contacted at [phone]. Patient is status post broch on 04/03. Bronchial washings pending. (5) Compression fracture of body of thoracic vertebra Is this a current diagnosis for this admission?: Yes Plan: Most likely occurred during the fall. Patient states pain is better controlled and he is able to walk. (6) Fall Qualifiers: Encounter type: initial encounter Qualified Code(s): W19.XXXA - Unspecified fall, initial encounter Is this a current diagnosis for this admission?: Yes Plan: Possible secondary to seizure. Patient more stable on feet. (7) Metabolic acidosis Is this a current diagnosis for this admission?: Yes Plan: Now resolved but could be due to dehydration and or possible seizure from etoh withdrawal resulting in elevated lactic acid. (8) Seizure Is this a current diagnosis for this admission?: Yes Plan: Possible secondary to alcohol withdrawal. Patient on valium for alcohol withdrawal. It is being tapered off. Patient on seizure precautions. Patient with no other seizures. 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 (10) Hypokalemia Is this a current diagnosis for this admission?: Yes Plan: Patient given replacement. Monitor. Resolved. (11) Hypomagnesemia Plan: Continue oral replacement. Monitor. Resolved. (12) Homeless Is this a current diagnosis for this admission?: Yes Plan: Patient niece states that the home is not suitable for him to return. No heat, potentially no electric and the roof is falling in. He is not safe for him to return. Unfortunately, the niece has not told him that he cannot return home. Patient is under the impression that he can go home. Discharge planning attempting to discuss assisted living with him and patient declined. Explained to discharge planning that the decision maker is the niece. - Time Time Spent with patient: Less than 15 minutes Anticipated discharge: SNF - Inpatient Certification Medical Necessity: Other - Patient homeless
[2017-04-03] MEDS: LEVOFLOXACIN 750 MG TABLET PO SCH (21:01)
[2017-04-03] MEDS: TRAZODONE HCL 50 MG TABLET PO SCH (21:01)
[2017-04-03] MEDS: OLANZAPINE 5 MG TABLET PO SCH (21:01)
[2017-04-04] MEDS: AMOXICILLIN TR/POT CLAVULANATE 500-125 MG TAB PO SCH ×3 (05:17→21:43)
[2017-04-04] MEDS: THIAMINE HCL 100 MG TABLET PO SCH (09:40)
[2017-04-04] MEDS: OLANZAPINE 2.5 MG TABLET PO SCH (09:40)
[2017-04-04] MEDS: FAMOTIDINE 20 MG TABLET PO SCH ×2 (09:40→21:43)
[2017-04-04] MEDS: MAGNESIUM OXIDE 400 MG TABLET PO SCH ×2 (09:40→18:36)
[2017-04-04] MEDS: NICOTINE 21 MG/24 HR PATCH.TD24 TD SCH (09:42)
[2017-04-04] MEDS ORDERED: TUBERCULIN,PURIF.PROT.DERIV. 5 TU/0.1 ML TEST 1 ML VIAL ID ONE (17:00)
[2017-04-04] MEDS: TRAZODONE HCL 50 MG TABLET PO SCH (21:42)
[2017-04-04] MEDS: OLANZAPINE 5 MG TABLET PO SCH (21:43)
[2017-04-04] MEDS: LEVOFLOXACIN 750 MG TABLET PO SCH (21:43)
--- NOTE | 2017-04-04 22:22 | PDOC PROGRESS REPORT ---
Subjective Progress Note for:: 04/04/17 Subjective:: Patient presented a fall causing back pain. Patient was found to have a possible pneumonia. However there were cavitary lesions concerning for possible cancer. Patient is status post bronch on 04/03. Patient doing well and is wondering when he can leave. Patient is aware that he cannot go home. Patient will go to assisted living when accepted. Reason For Visit: FALL,PNA OR CANCER Physical Exam Vital Signs: Temp Pulse Resp BP Pulse Ox 98.4 F 71 24 H 133/82 H 98 04/04/17 20:47 04/04/17 20:47 04/04/17 20:47 04/04/17 20:47 04/04/17 20:47 Intake & Output 04/03/17 04/04/17 04/05/17 06:59 06:59 06:59 Intake Total 435 1358 1045 Output Total 0 Balance 435 1358 1045 Weight 67.5 kg 67.8 kg General appearance: PRESENT: no acute distress, thin, well-developed, well- nourished Head exam: PRESENT: normocephalic Eye exam: PRESENT: EOMI. ABSENT: scleral icterus Ear exam: PRESENT: normal external ear exam Mouth exam: PRESENT: moist Neck exam: ABSENT: carotid bruit, JVD, lymphadenopathy, thyromegaly Respiratory exam: PRESENT: clear to auscultation homero. ABSENT: rales, rhonchi, wheezes Cardiovascular exam: PRESENT: RRR. ABSENT: diastolic murmur, rubs, systolic murmur GI/Abdominal exam: PRESENT: normal bowel sounds, soft, other - colostomy in place with air and watery stool. ABSENT: distended, guarding, mass, organolmegaly, rebound, tenderness Rectal exam: PRESENT: deferred Extremities exam: PRESENT: full ROM. ABSENT: calf tenderness, clubbing, pedal edema Neurological exam: PRESENT: alert, awake, oriented to person, oriented to place , oriented to time, oriented to situation, CN II-XII grossly intact. ABSENT: motor sensory deficit Psychiatric exam: PRESENT: appropriate affect, normal mood. ABSENT: homicidal ideation, suicidal ideation Skin exam: PRESENT: dry, intact, warm. ABSENT: cyanosis, rash Results Laboratory Results: 03/30/17 06:22 04/03/17 03:56 03/27/17 03/27/17 03/28/17 16:17 22:15 04:17 Creatine Kinase 479 H 578 H 645 H Troponin I 03/28/17 04:17 Creatine Kinase Troponin I 0.015 Impressions: Chest CT 03/27/17 00:00 IMPRESSION: SPICULATED MASS IN THE LEFT LUNG APEX WITH CENTRAL CAVITARY COMPONENT. THIS IS SUSPICIOUS FOR MALIGNANCY. INFECTIOUS PROCESS WITH CAVITARY PNEUMONIA COULD BE A POSSIBILITY BUT IS LESS LIKELY. THERE IS ALSO A SPICULATED LESION IN THE RIGHT LUNG APEX WHICH MAY ALSO BE MALIGNANT IN NATURE OR COULD REPRESENT FOCAL SCAR. NO OTHER SIGNIFICANT FINDINGS, OTHER THAN CHRONIC EMPHYSEMATOUS CHANGES AND INTERSTITIAL SCARRING. Acute Abdomen Series 03/27/17 08:44 IMPRESSION: Nothing acute. No bowel dilatation. Small amount of fecal material. Head CT 03/27/17 08:59 IMPRESSION: Large subacute/ chronic nonhemorrhagic infarct left MCA territory. EVIDENCE OF ACUTE STROKE: See above. LEFT MCA Thoracic Spine CT 03/27/17 11:03 IMPRESSION: 1. Recent compression fracture of T9. 2. Left apical lung mass. Cervical Spine X-Ray 03/28/17 00:00 IMPRESSION: NO SIGNIFICANT RADIOGRAPHIC FINDING IN THE CERVICAL SPINE. Head MRI 03/28/17 14:55 IMPRESSION: MINIMAL MICROVASCULAR ISCHEMIC CHANGE. Old left MCA infarct. Other findings as noted above EVIDENCE OF ACUTE STROKE: NO. Carotid Doppler Study 03/30/17 00:00 IMPRESSION: NO HEMODYNAMICALLY SIGNIFICANT STENOSIS. Body Scan Nuclear Medicine 04/02/17 10:00 IMPRESSION: A bandlike increased uptake at T9 from acute or subacute infarction peptic Fluoroscopy 04/03/17 00:00 IMPRESSION: Intra procedural imaging and fluoro Chest X-Ray 04/03/17 13:03 IMPRESSION: 1. Worsening aeration left base. Otherwise stable chest. No pneumothorax. Assessment & Plan - Diagnosis (1) Acute renal failure Qualifiers: Acute renal failure type: unspecified Qualified Code(s): N17.9 - Acute kidney failure, unspecified Is this a current diagnosis for this admission?: Yes Plan: Possible secondary to decrease fluid intake. Will encourage po fluid intake and repeat in the am. Creatinine 1.29 up to 1.03. (2) Pneumonia Qualifiers: Pneumonia type: due to unspecified organism Laterality: unspecified laterality Lung location: unspecified part of lung Qualified Code(s): J18.9 - Pneumonia, unspecified organism Is this a current diagnosis for this admission?: Yes Plan: Possibly aspiration pneumonia at patient was found down and possible seizing at home. On po Levaquin and Augmentin. To complete 10 days of antibiotics. (3) Alcoholism /alcohol abuse Is this a current diagnosis for this admission?: Yes Plan: Patient was treated with a benzo taper and has been weaned off. (4) CVA, old, cognitive deficits Is this a current diagnosis for this admission?: Yes Plan: Patient with residual right hand weakness. Continue supportive care. Patient may have vascular dementia as a result of his CVA. Continue Zyprexa 2.5 in the AM and 5 mg at night. Patient not agitated. He understands that he cannot go back home. He is okay with an assisted living facility. (5) Cavitating mass of lung Is this a current diagnosis for this admission?: Yes Plan: No malignant cells on bronch. TB essentially rule out. Patient being treated for pneumonia. (6) Compression fracture of body of thoracic vertebra Is this a current diagnosis for this admission?: Yes Plan: Most likely occurred during the fall. Pain well controlled. (7) Fall Qualifiers: Encounter type: initial encounter Qualified Code(s): W19.XXXA - Unspecified fall, initial encounter Is this a current diagnosis for this admission?: Yes Plan: Possible secondary to seizure and or alcohol intoxication. Patient more stable on feet. (8) Metabolic acidosis Is this a current diagnosis for this admission?: Yes Plan: Resolved. (9) Seizure Is this a current diagnosis for this admission?: Yes Plan: No further seizures. Possible secondary to alcohol withdrawal. Patient was placed on valium taper. Patient on seizure precautions. 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 (11) Hypokalemia Is this a current diagnosis for this admission?: Yes Plan: Resolved. (12) Hypomagnesemia Plan: Resolved. (13) Homeless Is this a current diagnosis for this admission?: Yes Plan: Patient niece states that the home is not suitable for him to return. No heat, potentially no electric and the roof is falling in. He is not safe for him to return. Niece has finally said that patient cannot return home to live with her. Discharge planning looking into assisted living. PPD placed on 04/04. Patient thinks if he living somewhere like that. He is not upset about his niece doesn't want him home he just wish she would have told him sooner. - Time Time Spent with patient: 15-24 minutes Anticipated discharge: Other - Assisted living Within: when bed available - Inpatient Certification Medical Necessity: Other - Homeless awaiting assisted living placement.
[2017-04-05] MEDS: AMOXICILLIN TR/POT CLAVULANATE 500-125 MG TAB PO SCH ×3 (05:49→21:10)
[2017-04-05 08:09] LABS: ANION GAP 13 (5-19); BLOOD UREA NITROGEN 16 mg/dL (7-20); CALCIUM 10.1 mg/dL (8.4-10.2); CARBON DIOXIDE 27 mmol/L (22-30); CHLORIDE 103 mmol/L (98-107); GLUCOSE 94 mg/dL (75-110); MAGNESIUM 1.9 mg/dL (1.6-2.3); POTASSIUM 4.1 mmol/L (3.6-5.0); SODIUM 142.6 mmol/L (137-145)
[2017-04-05 08:33] LABS: FREE T3 4.15 pg/mL (2.77-5.27)
[2017-04-05 08:34] LABS: FREE T4 (FREE THYROXINE) 2.46 ng/dL (0.78-2.19)
[2017-04-05 08:47] LABS: THYROID STIMULATING HORMONE 1.43 uIU/mL (0.47-4.68)
[2017-04-05] MEDS: FAMOTIDINE 20 MG TABLET PO SCH ×2 (10:23→21:10)
[2017-04-05] MEDS: MAGNESIUM OXIDE 400 MG TABLET PO SCH ×2 (10:23→18:16)
[2017-04-05] MEDS: THIAMINE HCL 100 MG TABLET PO SCH (10:24)
[2017-04-05] MEDS: OLANZAPINE 2.5 MG TABLET PO SCH (10:24)
[2017-04-05] MEDS: NICOTINE 21 MG/24 HR PATCH.TD24 TD SCH (10:29)
--- NOTE | 2017-04-05 12:18 | PDOC PROGRESS REPORT ---
Subjective Progress Note for:: 04/05/17 Subjective:: Patient presented a fall causing back pain. Patient was found to have a possible pneumonia. However there were cavitary lesions concerning for possible cancer. Patient is status post bronch on 04/03. Patient doing well and is wondering when he can leave. Patient is aware that he cannot go home. Patient on the phone. Patient doing okay. Reason For Visit: FALL,PNA OR CANCER Physical Exam Vital Signs: Temp Pulse Resp BP Pulse Ox 97.5 F 70 24 H 108/67 97 04/05/17 11:19 04/05/17 11:19 04/05/17 04:59 04/05/17 11:19 04/05/17 11:19 Intake & Output 04/04/17 04/05/17 04/06/17 06:59 06:59 06:59 Intake Total 1358 1348 Output Total 0 Balance 1358 1348 Weight 67.8 kg 67.9 kg General appearance: PRESENT: no acute distress, disheveled, well-developed, well -nourished Head exam: PRESENT: normocephalic Eye exam: PRESENT: EOMI. ABSENT: scleral icterus Neck exam: ABSENT: carotid bruit, JVD, lymphadenopathy, thyromegaly Respiratory exam: PRESENT: clear to auscultation homero. ABSENT: rales, rhonchi, wheezes Cardiovascular exam: PRESENT: RRR. ABSENT: diastolic murmur, rubs, systolic murmur Pulses: PRESENT: normal dorsalis pedis pul Vascular exam: PRESENT: normal capillary refill GI/Abdominal exam: PRESENT: normal bowel sounds, soft, other - colostomy bag in place. ABSENT: distended, guarding, mass, organolmegaly, rebound, tenderness Rectal exam: PRESENT: deferred Extremities exam: PRESENT: full ROM. ABSENT: calf tenderness, clubbing, pedal edema Neurological exam: PRESENT: alert, awake, oriented to person, oriented to place , oriented to time, oriented to situation, CN II-XII grossly intact. ABSENT: motor sensory deficit Psychiatric exam: PRESENT: appropriate affect, normal mood. ABSENT: homicidal ideation, suicidal ideation Skin exam: PRESENT: dry, intact, warm. ABSENT: cyanosis, rash Results Laboratory Results: 03/30/17 06:22 04/05/17 07:09 04/05/17 04/05/17 07:09 07:09 Sodium 142.6 Potassium 4.1 Chloride 103 Carbon Dioxide 27 Anion Gap 13 BUN 16 Creatinine 1.14 Est GFR ( Amer) > 60 Est GFR (Non-Af Amer) > 60 Glucose 94 Calcium 10.1 Magnesium 1.9 Vitamin B12 383.0 Folate 13.20 TSH 1.43 Free T4 2.46 H Free T3 pg/mL 4.15 04/03/17 10:16 Bronchial Washings Gram Stain - Final 04/03/17 10:16 Bronchial Washings Bronchial Washings Culture - Final C.albicans/C.dubliniensis Normal Leonarda Absent 04/03/17 10:16 Bronchial Washings AFB Smear Concentration - Final 04/03/17 10:16 Bronchial Washings Acid Fast Bacilli Smear - Final 03/27/17 03/27/17 03/28/17 16:17 22:15 04:17 Creatine Kinase 479 H 578 H 645 H Troponin I 03/28/17 04:17 Creatine Kinase Troponin I 0.015 Impressions: Chest CT 03/27/17 00:00 IMPRESSION: SPICULATED MASS IN THE LEFT LUNG APEX WITH CENTRAL CAVITARY COMPONENT. THIS IS SUSPICIOUS FOR MALIGNANCY. INFECTIOUS PROCESS WITH CAVITARY PNEUMONIA COULD BE A POSSIBILITY BUT IS LESS LIKELY. THERE IS ALSO A SPICULATED LESION IN THE RIGHT LUNG APEX WHICH MAY ALSO BE MALIGNANT IN NATURE OR COULD REPRESENT FOCAL SCAR. NO OTHER SIGNIFICANT FINDINGS, OTHER THAN CHRONIC EMPHYSEMATOUS CHANGES AND INTERSTITIAL SCARRING. Acute Abdomen Series 03/27/17 08:44 IMPRESSION: Nothing acute. No bowel dilatation. Small amount of fecal material. Head CT 03/27/17 08:59 IMPRESSION: Large subacute/ chronic nonhemorrhagic infarct left MCA territory. EVIDENCE OF ACUTE STROKE: See above. LEFT MCA Thoracic Spine CT 03/27/17 11:03 IMPRESSION: 1. Recent compression fracture of T9. 2. Left apical lung mass. Cervical Spine X-Ray 03/28/17 00:00 IMPRESSION: NO SIGNIFICANT RADIOGRAPHIC FINDING IN THE CERVICAL SPINE. Head MRI 03/28/17 14:55 IMPRESSION: MINIMAL MICROVASCULAR ISCHEMIC CHANGE. Old left MCA infarct. Other findings as noted above EVIDENCE OF ACUTE STROKE: NO. Carotid Doppler Study 03/30/17 00:00 IMPRESSION: NO HEMODYNAMICALLY SIGNIFICANT STENOSIS. Body Scan Nuclear Medicine 04/02/17 10:00 IMPRESSION: A bandlike increased uptake at T9 from acute or subacute infarction peptic Fluoroscopy 04/03/17 00:00 IMPRESSION: Intra procedural imaging and fluoro Chest X-Ray 04/03/17 13:03 IMPRESSION: 1. Worsening aeration left base. Otherwise stable chest. No pneumothorax. Assessment & Plan - Diagnosis (1) Pneumonia Qualifiers: Pneumonia type: due to unspecified organism Laterality: unspecified laterality Lung location: unspecified part of lung Qualified Code(s): J18.9 - Pneumonia, unspecified organism Is this a current diagnosis for this admission?: Yes Plan: Possibly aspiration pneumonia at patient was found down and possible seizing at home. On po Levaquin and Augmentin. To complete 10 days of antibiotics. Patient will require 1 more day. (2) Acute renal failure Qualifiers: Acute renal failure type: unspecified Qualified Code(s): N17.9 - Acute kidney failure, unspecified Is this a current diagnosis for this admission?: Yes Plan: Resolved. Possible secondary to decrease fluid intake. Creatinine down from 1.29 to 1.14. (3) Alcoholism /alcohol abuse Is this a current diagnosis for this admission?: Yes Plan: Patient was treated with a benzo taper and has been weaned off. (4) CVA, old, cognitive deficits Is this a current diagnosis for this admission?: Yes Plan: Patient with residual right hand weakness. Continue supportive care. Patient may have vascular dementia as a result of his CVA. Continue Zyprexa 2.5 in the AM and 5 mg at night. Patient not agitated. He understands that he cannot go back home. He is okay with an assisted living facility. (5) Cavitating mass of lung Is this a current diagnosis for this admission?: Yes Plan: No malignant cells on bronch. TB essentially rule out. Patient being treated for pneumonia. (6) Compression fracture of body of thoracic vertebra Is this a current diagnosis for this admission?: Yes Plan: Most likely occurred during the fall. Pain well controlled. (7) Fall Qualifiers: Encounter type: initial encounter Qualified Code(s): W19.XXXA - Unspecified fall, initial encounter Is this a current diagnosis for this admission?: Yes Plan: Possible secondary to seizure and or alcohol intoxication. Patient more stable on feet. (8) Metabolic acidosis Is this a current diagnosis for this admission?: Yes Plan: Resolved. (9) Seizure Is this a current diagnosis for this admission?: Yes Plan: No further seizures. Possible secondary to alcohol withdrawal. Patient was placed on valium taper. Patient on seizure precautions. Patient currently off valium. 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 (11) Hypokalemia Is this a current diagnosis for this admission?: Yes Plan: Resolved. (12) Hypomagnesemia Plan: Resolved. (13) Homeless Is this a current diagnosis for this admission?: Yes Plan: Patient niece states that the home is not suitable for him to return. No heat, potentially no electric and the roof is falling in. He is not safe for him to return. Niece has finally said that patient cannot return home to live with her. Discharge planning looking into assisted living. PPD placed on 04/04. Patient thinks if he living somewhere like that. He is not upset about his niece doesn't want him home he just wish she would have told him sooner. (14) Macrocytic anemia Is this a current diagnosis for this admission?: Yes Plan: B12 low normal. Will start on replacement as this can affect patient's mentation. - Time Time Spent with patient: Less than 15 minutes Anticipated discharge: Other - assisted living. Within: when bed available - Inpatient Certification Medical Necessity: Other - Awaiting placement currently homeless.
[2017-04-05] MEDS ORDERED: CYANOCOBALAMIN (VITAMIN B-12) 1,000 MCG TABLET PO ONE (14:00)
[2017-04-05] MEDS: OLANZAPINE 5 MG TABLET PO SCH (21:10)
[2017-04-05] MEDS: LEVOFLOXACIN 750 MG TABLET PO SCH (21:10)
[2017-04-05] MEDS: TRAZODONE HCL 50 MG TABLET PO SCH (21:10)
[2017-04-06] MEDS: AMOXICILLIN TR/POT CLAVULANATE 500-125 MG TAB PO SCH ×3 (05:36→22:09)
[2017-04-06] MEDS: CYANOCOBALAMIN (VITAMIN B-12) 1,000 MCG TABLET PO SCH (09:04)
[2017-04-06] MEDS: MAGNESIUM OXIDE 400 MG TABLET PO SCH ×2 (09:04→17:14)
[2017-04-06] MEDS: FAMOTIDINE 20 MG TABLET PO SCH ×2 (09:04→22:09)
[2017-04-06] MEDS: OLANZAPINE 2.5 MG TABLET PO SCH (09:04)
[2017-04-06] MEDS: THIAMINE HCL 100 MG TABLET PO SCH (09:04)
[2017-04-06] MEDS: NICOTINE 21 MG/24 HR PATCH.TD24 TD SCH (09:05)
--- NOTE | 2017-04-06 19:27 | PDOC PROGRESS REPORT ---
Subjective Progress Note for:: 04/06/17 Subjective:: Patient presented a fall causing back pain. Patient was found to have a possible pneumonia. However there were cavitary lesions concerning for possible cancer. Patient is status post bronch on 04/03. Patient doing well and is wondering when he can leave. Patient is aware that he cannot go home. Patient sitting up in the chair. Patient happy about being able to walk around if he would like. Reason For Visit: FALL,PNA OR CANCER Physical Exam Vital Signs: Temp Pulse Resp BP Pulse Ox 98.1 F 80 18 98/53 L 96 04/06/17 16:00 04/06/17 16:00 04/06/17 16:00 04/06/17 16:00 04/06/17 16:00 Intake & Output 04/05/17 04/06/17 04/07/17 06:59 06:59 06:59 Intake Total 1348 2263 850 Balance 1348 2263 850 Weight 67.9 kg 68.5 kg General appearance: PRESENT: no acute distress, well-developed, well-nourished Head exam: PRESENT: atraumatic, normocephalic Eye exam: PRESENT: EOMI. ABSENT: scleral icterus Mouth exam: PRESENT: moist Neck exam: ABSENT: carotid bruit, JVD, lymphadenopathy, thyromegaly Respiratory exam: PRESENT: clear to auscultation homero. ABSENT: rales, rhonchi, wheezes Cardiovascular exam: PRESENT: RRR. ABSENT: diastolic murmur, rubs, systolic murmur GI/Abdominal exam: PRESENT: normal bowel sounds, soft, other - colostomy in place with stool. ABSENT: distended, guarding, mass, organolmegaly, rebound, tenderness Rectal exam: PRESENT: deferred Extremities exam: PRESENT: full ROM. ABSENT: calf tenderness, clubbing, pedal edema Neurological exam: PRESENT: alert, awake, oriented to person, oriented to place , CN II-XII grossly intact. ABSENT: motor sensory deficit Psychiatric exam: PRESENT: appropriate affect, normal mood. ABSENT: homicidal ideation, suicidal ideation Skin exam: PRESENT: dry, intact, warm. ABSENT: cyanosis, rash Results Laboratory Results: 03/30/17 06:22 04/05/17 07:09 03/27/17 03/27/17 03/28/17 16:17 22:15 04:17 Creatine Kinase 479 H 578 H 645 H Troponin I 03/28/17 04:17 Creatine Kinase Troponin I 0.015 Impressions: Chest CT 03/27/17 00:00 IMPRESSION: SPICULATED MASS IN THE LEFT LUNG APEX WITH CENTRAL CAVITARY COMPONENT. THIS IS SUSPICIOUS FOR MALIGNANCY. INFECTIOUS PROCESS WITH CAVITARY PNEUMONIA COULD BE A POSSIBILITY BUT IS LESS LIKELY. THERE IS ALSO A SPICULATED LESION IN THE RIGHT LUNG APEX WHICH MAY ALSO BE MALIGNANT IN NATURE OR COULD REPRESENT FOCAL SCAR. NO OTHER SIGNIFICANT FINDINGS, OTHER THAN CHRONIC EMPHYSEMATOUS CHANGES AND INTERSTITIAL SCARRING. Acute Abdomen Series 03/27/17 08:44 IMPRESSION: Nothing acute. No bowel dilatation. Small amount of fecal material. Head CT 03/27/17 08:59 IMPRESSION: Large subacute/ chronic nonhemorrhagic infarct left MCA territory. EVIDENCE OF ACUTE STROKE: See above. LEFT MCA Thoracic Spine CT 03/27/17 11:03 IMPRESSION: 1. Recent compression fracture of T9. 2. Left apical lung mass. Cervical Spine X-Ray 03/28/17 00:00 IMPRESSION: NO SIGNIFICANT RADIOGRAPHIC FINDING IN THE CERVICAL SPINE. Head MRI 03/28/17 14:55 IMPRESSION: MINIMAL MICROVASCULAR ISCHEMIC CHANGE. Old left MCA infarct. Other findings as noted above EVIDENCE OF ACUTE STROKE: NO. Carotid Doppler Study 03/30/17 00:00 IMPRESSION: NO HEMODYNAMICALLY SIGNIFICANT STENOSIS. Body Scan Nuclear Medicine 04/02/17 10:00 IMPRESSION: A bandlike increased uptake at T9 from acute or subacute infarction peptic Fluoroscopy 04/03/17 00:00 IMPRESSION: Intra procedural imaging and fluoro Chest X-Ray 04/03/17 13:03 IMPRESSION: 1. Worsening aeration left base. Otherwise stable chest. No pneumothorax. Assessment & Plan - Diagnosis (1) Pneumonia Qualifiers: Pneumonia type: due to unspecified organism Laterality: unspecified laterality Lung location: unspecified part of lung Qualified Code(s): J18.9 - Pneumonia, unspecified organism Is this a current diagnosis for this admission?: Yes Plan: Possibly aspiration pneumonia at patient was found down and possible seizing at home. On po Levaquin and Augmentin. To complete 10 days of antibiotics. Today is day 10. Will discontinue in the am. (2) Acute renal failure Qualifiers: Acute renal failure type: unspecified Qualified Code(s): N17.9 - Acute kidney failure, unspecified Is this a current diagnosis for this admission?: Yes Plan: Resolved. (3) Alcoholism /alcohol abuse Is this a current diagnosis for this admission?: Yes Plan: Patient was treated with a benzo taper and has been weaned off. (4) CVA, old, cognitive deficits Is this a current diagnosis for this admission?: Yes Plan: Patient with residual right hand weakness. Continue supportive care. Patient may have vascular dementia as a result of his CVA. Continue Zyprexa 2.5 in the AM and 5 mg at night. Patient not agitated. He understands that he cannot go back home. He is okay with an assisted living facility. (5) Cavitating mass of lung Is this a current diagnosis for this admission?: Yes Plan: No malignant cells on bronch. TB essentially rule out. Patient being treated for pneumonia. (6) Compression fracture of body of thoracic vertebra Is this a current diagnosis for this admission?: Yes Plan: Most likely occurred during the fall. Pain well controlled. (7) Fall Qualifiers: Encounter type: initial encounter Qualified Code(s): W19.XXXA - Unspecified fall, initial encounter Is this a current diagnosis for this admission?: Yes Plan: Possible secondary to seizure and or alcohol intoxication. Patient more stable on feet. (8) Metabolic acidosis Is this a current diagnosis for this admission?: Yes Plan: Resolved. (9) Seizure Is this a current diagnosis for this admission?: Yes Plan: No further seizures. Possible secondary to alcohol withdrawal. Patient was placed on valium taper. Patient on seizure precautions. Patient currently off valium. 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 (11) Hypokalemia Is this a current diagnosis for this admission?: Yes Plan: Resolved. (12) Hypomagnesemia Plan: Resolved. (13) Homeless Is this a current diagnosis for this admission?: Yes Plan: Patient niece states that the home is not suitable for him to return. No heat, potentially no electric and the roof is falling in. He is not safe for him to return. Niece has finally told patient he cannot return home to live with her. Discharge planning looking into assisted living. PPD placed on 04/04. (14) Macrocytic anemia Is this a current diagnosis for this admission?: Yes Plan: B12 low normal. Patient started on B12 replacement. - Time Time Spent with patient: Less than 15 minutes Anticipated discharge: Other - Looking for placement.
[2017-04-06] MEDS: LEVOFLOXACIN 750 MG TABLET PO SCH (22:09)
[2017-04-06] MEDS: OLANZAPINE 5 MG TABLET PO SCH (22:09)
[2017-04-06] MEDS: TRAZODONE HCL 50 MG TABLET PO SCH (22:09)
[2017-04-07] MEDS: AMOXICILLIN TR/POT CLAVULANATE 500-125 MG TAB PO SCH ×3 (06:58→21:58)
[2017-04-07] MEDS: THIAMINE HCL 100 MG TABLET PO SCH (09:14)
[2017-04-07] MEDS: FAMOTIDINE 20 MG TABLET PO SCH ×2 (09:14→21:58)
[2017-04-07] MEDS: CYANOCOBALAMIN (VITAMIN B-12) 1,000 MCG TABLET PO SCH (09:14)
[2017-04-07] MEDS: MAGNESIUM OXIDE 400 MG TABLET PO SCH ×2 (09:15→17:11)
[2017-04-07] MEDS: NICOTINE 21 MG/24 HR PATCH.TD24 TD SCH (09:32)
[2017-04-07] MEDS: OLANZAPINE 2.5 MG TABLET PO SCH (09:33)
--- NOTE | 2017-04-07 19:15 | PDOC PROGRESS REPORT ---
Subjective Progress Note for:: 04/07/17 Subjective:: Patient presented a fall causing back pain. Patient was found to have a possible pneumonia. However there were cavitary lesions concerning for possible cancer. Patient is status post bronch on 04/03. Patient doing well and is wondering when he can leave. Patient is aware that he cannot go home. Patient that he is ready to leave. Patient stated he can pay to go to a hotel. Discharge planning still looking into place if the patient relieved. Patient was presented to several assisted living facilities however all have declined to accept the patient. Reason For Visit: FALL,PNA OR CANCER Physical Exam Vital Signs: Temp Pulse Resp BP Pulse Ox 98.4 F 73 18 126/75 H 97 04/07/17 16:04 04/07/17 16:04 04/07/17 16:04 04/07/17 16:04 04/07/17 16:04 Intake & Output 04/06/17 04/07/17 04/08/17 06:59 06:59 06:59 Intake Total 2263 1200 0 Balance 2263 1200 0 Weight 68.5 kg General appearance: PRESENT: no acute distress, disheveled, well-developed, well -nourished Head exam: PRESENT: normocephalic Eye exam: PRESENT: EOMI. ABSENT: scleral icterus Ear exam: PRESENT: normal external ear exam Mouth exam: PRESENT: moist Neck exam: ABSENT: carotid bruit, JVD, lymphadenopathy, thyromegaly Respiratory exam: PRESENT: clear to auscultation homero. ABSENT: rales, rhonchi, wheezes Cardiovascular exam: PRESENT: RRR. ABSENT: diastolic murmur, rubs, systolic murmur Vascular exam: PRESENT: normal capillary refill GI/Abdominal exam: PRESENT: normal bowel sounds, soft, other - Ostomy in place. ABSENT: distended, guarding, mass, organolmegaly, rebound, tenderness Rectal exam: PRESENT: deferred Extremities exam: PRESENT: full ROM. ABSENT: calf tenderness, clubbing, pedal edema Neurological exam: PRESENT: alert, awake, oriented to person, CN II-XII grossly intact. ABSENT: oriented to situation, motor sensory deficit Psychiatric exam: PRESENT: appropriate affect, normal mood. ABSENT: homicidal ideation, suicidal ideation Skin exam: PRESENT: dry, intact, warm. ABSENT: cyanosis, rash Results Laboratory Results: 03/30/17 06:22 04/05/17 07:09 03/27/17 03/27/17 03/28/17 16:17 22:15 04:17 Creatine Kinase 479 H 578 H 645 H Troponin I 03/28/17 04:17 Creatine Kinase Troponin I 0.015 Impressions: Chest CT 03/27/17 00:00 IMPRESSION: SPICULATED MASS IN THE LEFT LUNG APEX WITH CENTRAL CAVITARY COMPONENT. THIS IS SUSPICIOUS FOR MALIGNANCY. INFECTIOUS PROCESS WITH CAVITARY PNEUMONIA COULD BE A POSSIBILITY BUT IS LESS LIKELY. THERE IS ALSO A SPICULATED LESION IN THE RIGHT LUNG APEX WHICH MAY ALSO BE MALIGNANT IN NATURE OR COULD REPRESENT FOCAL SCAR. NO OTHER SIGNIFICANT FINDINGS, OTHER THAN CHRONIC EMPHYSEMATOUS CHANGES AND INTERSTITIAL SCARRING. Acute Abdomen Series 03/27/17 08:44 IMPRESSION: Nothing acute. No bowel dilatation. Small amount of fecal material. Head CT 03/27/17 08:59 IMPRESSION: Large subacute/ chronic nonhemorrhagic infarct left MCA territory. EVIDENCE OF ACUTE STROKE: See above. LEFT MCA Thoracic Spine CT 03/27/17 11:03 IMPRESSION: 1. Recent compression fracture of T9. 2. Left apical lung mass. Cervical Spine X-Ray 03/28/17 00:00 IMPRESSION: NO SIGNIFICANT RADIOGRAPHIC FINDING IN THE CERVICAL SPINE. Head MRI 03/28/17 14:55 IMPRESSION: MINIMAL MICROVASCULAR ISCHEMIC CHANGE. Old left MCA infarct. Other findings as noted above EVIDENCE OF ACUTE STROKE: NO. Carotid Doppler Study 03/30/17 00:00 IMPRESSION: NO HEMODYNAMICALLY SIGNIFICANT STENOSIS. Body Scan Nuclear Medicine 04/02/17 10:00 IMPRESSION: A bandlike increased uptake at T9 from acute or subacute infarction peptic Fluoroscopy 04/03/17 00:00 IMPRESSION: Intra procedural imaging and fluoro Chest X-Ray 04/03/17 13:03 IMPRESSION: 1. Worsening aeration left base. Otherwise stable chest. No pneumothorax. Assessment & Plan - Diagnosis (1) Pneumonia Qualifiers: Pneumonia type: due to unspecified organism Laterality: unspecified laterality Lung location: unspecified part of lung Qualified Code(s): J18.9 - Pneumonia, unspecified organism Is this a current diagnosis for this admission?: Yes Plan: Possibly aspiration pneumonia at patient was found down and possible seizing at home. On po Levaquin and Augmentin. To complete 10 days of antibiotics. (2) Acute renal failure Qualifiers: Acute renal failure type: unspecified Qualified Code(s): N17.9 - Acute kidney failure, unspecified Is this a current diagnosis for this admission?: Yes Plan: Resolved. (3) Alcoholism /alcohol abuse Is this a current diagnosis for this admission?: Yes Plan: Patient was treated with a benzo taper and has been weaned off. (4) CVA, old, cognitive deficits Is this a current diagnosis for this admission?: Yes Plan: Patient with residual right hand weakness. Continue supportive care. Patient may have vascular dementia as a result of his CVA. Continue Zyprexa 2.5 in the AM and 5 mg at night. Trazodone nightly for sleep. (5) Cavitating mass of lung Is this a current diagnosis for this admission?: Yes Plan: No malignant cells on bronch. TB essentially rule out. Patient being treated for pneumonia. (6) Compression fracture of body of thoracic vertebra Is this a current diagnosis for this admission?: Yes Plan: Most likely occurred during the fall. Pain well controlled. (7) Fall Qualifiers: Encounter type: initial encounter Qualified Code(s): W19.XXXA - Unspecified fall, initial encounter Is this a current diagnosis for this admission?: Yes Plan: Possible secondary to seizure and or alcohol intoxication. Patient more stable on feet. (8) Metabolic acidosis Is this a current diagnosis for this admission?: Yes Plan: Resolved. (9) Seizure Is this a current diagnosis for this admission?: Yes Plan: No further seizures. Possible secondary to alcohol withdrawal. Patient was placed on valium taper. Patient on seizure precautions. Patient currently off valium. 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 (11) Hypokalemia Is this a current diagnosis for this admission?: Yes Plan: Resolved. (12) Hypomagnesemia Plan: Resolved. (13) Homeless Is this a current diagnosis for this admission?: Yes Plan: Patient niece states that the home is not suitable for him to return. No heat, potentially no electric and the roof is falling in. He is not safe for him to return. Niece has finally told patient he cannot return home to live with her. Discharge planning looking into assisted living. PPD placed on 04/04. Patient was presented to assisted living a few facilities which have all declined to take him. (14) Macrocytic anemia Is this a current diagnosis for this admission?: Yes Plan: B12 low normal. Continue B12 replacement. - Time Time Spent with patient: Less than 15 minutes Anticipated discharge: Other - Inpatient Certification Medical Necessity: Risk of Complication if Not Cared For in Hospital, Other - Patient is homeless awaiting placement
[2017-04-07] MEDS: TRAZODONE HCL 50 MG TABLET PO SCH (21:58)
[2017-04-07] MEDS: OLANZAPINE 5 MG TABLET PO SCH (21:58)
[2017-04-07] MEDS: LEVOFLOXACIN 750 MG TABLET PO SCH (21:58)
[2017-04-08] MEDS: AMOXICILLIN TR/POT CLAVULANATE 500-125 MG TAB PO SCH (05:56)
[2017-04-08] MEDS: THIAMINE HCL 100 MG TABLET PO SCH (10:21)
[2017-04-08] MEDS: MAGNESIUM OXIDE 400 MG TABLET PO SCH ×2 (10:21→18:19)
[2017-04-08] MEDS: CYANOCOBALAMIN (VITAMIN B-12) 1,000 MCG TABLET PO SCH (10:21)
[2017-04-08] MEDS: OLANZAPINE 2.5 MG TABLET PO SCH (10:22)
[2017-04-08] MEDS: FAMOTIDINE 20 MG TABLET PO SCH ×2 (10:22→21:50)
[2017-04-08] MEDS: NICOTINE 21 MG/24 HR PATCH.TD24 TD SCH (10:22)
--- NOTE | 2017-04-08 16:31 | PDOC PROGRESS REPORT ---
Subjective Progress Note for:: 04/08/17 Subjective:: The patient is a 57-year-old male who presented at home after a fall. His niece heard him fall to the ground. When he presented he was noted to have cavitary lung masses. A bronchoscopy was performed. This was negative and TB was essentially ruled out. The patient now remains in the hospital because the risk caved and after the snow and he is essentially homeless. He is very upset about this and wishes to leave and pay for a hotel room if necessary. Discharge planning is working on the case. Reason For Visit: FALL,PNA OR CANCER Physical Exam Vital Signs: Temp Pulse Resp BP Pulse Ox 98.0 F 76 18 108/68 97 04/08/17 15:31 04/08/17 15:31 04/08/17 15:31 04/08/17 15:31 04/08/17 15:31 Intake & Output 04/07/17 04/08/17 04/09/17 06:59 06:59 06:59 Intake Total 1200 2440 828 Output Total 425 Balance 1200 2015 828 Weight 65.8 kg Additional comments: The patient appears to be much improved compared to the day I admitted him. His cognition appears to be normal. His facial appearance is unremarkable. His lungs are actually clear without adventitious sounds. His cardiac exam is regular without murmurs, gallops or rubs. The abdomen is soft and flat. Bowel sounds are present. However, there is some erythema around the ostomy site which she says has been present for about 3 days or so. He is not allowing the nurses to change his dressings. He is caring for this himself. His lower extremities are unremarkable. He does not have any edema. Results Laboratory Results: 03/30/17 06:22 04/05/17 07:09 03/27/17 03/27/17 03/28/17 16:17 22:15 04:17 Creatine Kinase 479 H 578 H 645 H Troponin I 03/28/17 04:17 Creatine Kinase Troponin I 0.015 Impressions: Chest CT 03/27/17 00:00 IMPRESSION: SPICULATED MASS IN THE LEFT LUNG APEX WITH CENTRAL CAVITARY COMPONENT. THIS IS SUSPICIOUS FOR MALIGNANCY. INFECTIOUS PROCESS WITH CAVITARY PNEUMONIA COULD BE A POSSIBILITY BUT IS LESS LIKELY. THERE IS ALSO A SPICULATED LESION IN THE RIGHT LUNG APEX WHICH MAY ALSO BE MALIGNANT IN NATURE OR COULD REPRESENT FOCAL SCAR. NO OTHER SIGNIFICANT FINDINGS, OTHER THAN CHRONIC EMPHYSEMATOUS CHANGES AND INTERSTITIAL SCARRING. Acute Abdomen Series 03/27/17 08:44 IMPRESSION: Nothing acute. No bowel dilatation. Small amount of fecal material. Head CT 03/27/17 08:59 IMPRESSION: Large subacute/ chronic nonhemorrhagic infarct left MCA territory. EVIDENCE OF ACUTE STROKE: See above. LEFT MCA Thoracic Spine CT 03/27/17 11:03 IMPRESSION: 1. Recent compression fracture of T9. 2. Left apical lung mass. Cervical Spine X-Ray 03/28/17 00:00 IMPRESSION: NO SIGNIFICANT RADIOGRAPHIC FINDING IN THE CERVICAL SPINE. Head MRI 03/28/17 14:55 IMPRESSION: MINIMAL MICROVASCULAR ISCHEMIC CHANGE. Old left MCA infarct. Other findings as noted above EVIDENCE OF ACUTE STROKE: NO. Carotid Doppler Study 03/30/17 00:00 IMPRESSION: NO HEMODYNAMICALLY SIGNIFICANT STENOSIS. Body Scan Nuclear Medicine 04/02/17 10:00 IMPRESSION: A bandlike increased uptake at T9 from acute or subacute infarction peptic Fluoroscopy 04/03/17 00:00 IMPRESSION: Intra procedural imaging and fluoro Chest X-Ray 04/03/17 13:03 IMPRESSION: 1. Worsening aeration left base. Otherwise stable chest. No pneumothorax. Assessment & Plan - Diagnosis (1) Metabolic acidosis Is this a current diagnosis for this admission?: Yes (2) Compression fracture of body of thoracic vertebra Is this a current diagnosis for this admission?: Yes (3) Cavitating mass of lung Is this a current diagnosis for this admission?: Yes (4) Lung mass Is this a current diagnosis for this admission?: Yes (5) CVA, old, cognitive deficits Is this a current diagnosis for this admission?: Yes (6) Seizure Is this a current diagnosis for this admission?: Yes (7) Fall Qualifiers: Encounter type: initial encounter Qualified Code(s): W19.XXXA - Unspecified fall, initial encounter Is this a current diagnosis for this admission?: Yes (8) Alcoholism /alcohol abuse Is this a current diagnosis for this admission?: Yes (9) Tobacco abuse Is this a current diagnosis for this admission?: Yes - Time Time Spent with patient: 15-24 minutes - Plan Summary Plan Summary: The patient is currently on oral Levaquin and Augmentin for his pneumonia. His acute renal failure is resolved. He was on a benzodiazepine course for alcoholism but this has been tapered to almost. We must continue B12 and folate. Currently for his old stroke he is on Zyprexa and trazodone. Bronchoscopy was negative, but, I did tell the patient that this is not 100% and these results need to be followed up after discharge. I told him that we have not excluded the potential of cancer. His pain from the vertebral fracture is currently well controlled. I will follow the erythema on his abdomen which is concerning for reaction to the ostomy materials and/or early cellulitis.
[2017-04-08] MEDS: TRAZODONE HCL 50 MG TABLET PO SCH (21:50)
[2017-04-08] MEDS: OLANZAPINE 5 MG TABLET PO SCH (21:50)
[2017-04-09] MEDS: MAGNESIUM OXIDE 400 MG TABLET PO SCH ×2 (08:59→16:46)
[2017-04-09] MEDS: CYANOCOBALAMIN (VITAMIN B-12) 1,000 MCG TABLET PO SCH (09:00)
[2017-04-09] MEDS: FAMOTIDINE 20 MG TABLET PO SCH ×2 (09:01→21:22)
[2017-04-09] MEDS: THIAMINE HCL 100 MG TABLET PO SCH (09:01)
[2017-04-09] MEDS: FOLIC ACID 1 MG TABLET PO SCH (09:01)
[2017-04-09] MEDS: NICOTINE 21 MG/24 HR PATCH.TD24 TD SCH (09:02)
[2017-04-09] MEDS: OLANZAPINE 2.5 MG TABLET PO SCH (09:02)
--- NOTE | 2017-04-09 11:33 | PDOC PROGRESS REPORT ---
Subjective Progress Note for:: 04/09/17 Subjective:: i feel better Reason For Visit: FALL,PNA OR CANCER Physical Exam Vital Signs: Temp Pulse Resp BP Pulse Ox 97.4 F 64 20 106/69 95 04/09/17 07:39 04/09/17 07:39 04/09/17 07:39 04/09/17 07:39 04/09/17 09:00 Intake & Output 04/08/17 04/09/17 04/10/17 06:59 06:59 06:59 Intake Total 2440 1950 Output Total 425 Balance 2014 1949 Weight 65.8 kg 66.8 kg Results Laboratory Results: 03/30/17 06:22 04/05/17 07:09 04/05/17 07:09 Vitamin B1 242.6 H 04/03/17 10:16 Bronchial Washings Fungal Smear - Final 04/03/17 10:16 Bronchial Washings Fungal Smear - Final 03/27/17 03/27/17 03/28/17 16:17 22:15 04:17 Creatine Kinase 479 H 578 H 645 H Troponin I 03/28/17 04:17 Creatine Kinase Troponin I 0.015 Impressions: Chest CT 03/27/17 00:00 IMPRESSION: SPICULATED MASS IN THE LEFT LUNG APEX WITH CENTRAL CAVITARY COMPONENT. THIS IS SUSPICIOUS FOR MALIGNANCY. INFECTIOUS PROCESS WITH CAVITARY PNEUMONIA COULD BE A POSSIBILITY BUT IS LESS LIKELY. THERE IS ALSO A SPICULATED LESION IN THE RIGHT LUNG APEX WHICH MAY ALSO BE MALIGNANT IN NATURE OR COULD REPRESENT FOCAL SCAR. NO OTHER SIGNIFICANT FINDINGS, OTHER THAN CHRONIC EMPHYSEMATOUS CHANGES AND INTERSTITIAL SCARRING. Acute Abdomen Series 03/27/17 08:44 IMPRESSION: Nothing acute. No bowel dilatation. Small amount of fecal material. Head CT 03/27/17 08:59 IMPRESSION: Large subacute/ chronic nonhemorrhagic infarct left MCA territory. EVIDENCE OF ACUTE STROKE: See above. LEFT MCA Thoracic Spine CT 03/27/17 11:03 IMPRESSION: 1. Recent compression fracture of T9. 2. Left apical lung mass. Cervical Spine X-Ray 03/28/17 00:00 IMPRESSION: NO SIGNIFICANT RADIOGRAPHIC FINDING IN THE CERVICAL SPINE. Head MRI 03/28/17 14:55 IMPRESSION: MINIMAL MICROVASCULAR ISCHEMIC CHANGE. Old left MCA infarct. Other findings as noted above EVIDENCE OF ACUTE STROKE: NO. Carotid Doppler Study 03/30/17 00:00 IMPRESSION: NO HEMODYNAMICALLY SIGNIFICANT STENOSIS. Body Scan Nuclear Medicine 04/02/17 10:00 IMPRESSION: A bandlike increased uptake at T9 from acute or subacute infarction peptic Fluoroscopy 04/03/17 00:00 IMPRESSION: Intra procedural imaging and fluoro Chest X-Ray 04/03/17 13:03 IMPRESSION: 1. Worsening aeration left base. Otherwise stable chest. No pneumothorax. Assessment & Plan - Diagnosis (1) COPD (chronic obstructive pulmonary disease) Qualifiers: Emphysema type: centrilobular Is this a current diagnosis for this admission?: Yes Plan: Generic Name Dose Route Start Last Admin Trade Name Freq PRN Reason Stop Dose Admin Albuterol/Ipratropium 3 ml 03/27/17 15:25 Duoneb 3 Ml Ampul NEB 04/26/17 15:24 [id number] PRN SHORTNESS OF BREATH Nicotine 1 each 03/31/17 10:00 04/02/17 10:00 Nicoderm 21 Mg/24 Hr Transderm Patch TD 04/30/17 09:59 Not Given DAILY JIGNA (2) CVA, old, cognitive deficits Is this a current diagnosis for this admission?: Yes (3) Cavitating mass of lung Is this a current diagnosis for this admission?: Yes Plan: we will need ct/pet post dc (4) Tobacco abuse Is this a current diagnosis for this admission?: Yes Plan: transdermal nicotine
--- NOTE | 2017-04-09 13:01 | Operative Report ---
Operative Report DATE OF SURGERY: 04/03/17 Operative Report: Patient patient kept n.p.o. 12 hours prior to procedure given nebulized therapy taken to the OR suite where IV access was confirmed and consent form were reviewed and signed. Patient was then taken to the bronchoscopy suite where after intubation by anesthesiology;the procedure was started using a T size [place] scope his was tracheobronchial tree was explored there were no abnormalities of the trachea no splaying of the cristóbal right mainstem bronchus right bronchus intermedius right lower lobe and right middle lobe and right upper lobe appeared to be within normal limits. There were no abnormalities of the left mainstem bronchus left lower lobe lingula no with any abnormalities noted in the left upper lobe subsequent lavage and transbronchial biopsies were taken of the left upper lobe the patient tolerated procedure well his postprocedure SaO2 is 99% his post procedure chest x-ray did not demonstrate pneumothorax. Tissue and lavage fluid was sent to the lab for appropriate cultures and studies. PREOPERATIVE DIAGNOSIS: Cavitary lung lesion POSTOPERATIVE DIAGNOSIS: Same OPERATION: Fiberoptic bronchoscopy with bronchoalveolar lavage and transbronchial biopsy SURGEON: QUANG VEGA ANESTHESIA: GA TISSUE REMOVED OR ALTERED: Bronchoalveolar lavage and transbronchial biopsies COMPLICATIONS: None ESTIMATED BLOOD LOSS: 0 ml
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
--- NOTE | 2017-04-09 17:45 | XCELERA REPORT ---
[address] [address] Transthoracic Echocardiogram Report Name: CLAYTON LAWSON Age: 57 yrs Gender: Male : 1960 Patient Status: Inpatient Patient Location: [address] [place], [place] [address] Study Date: 04/09/2017 01:35 PM Height: 69 in Weight: 147 lb BSA: 1.8 m2 Procedure: A two-dimensional transthoracic echocardiogram with color flow and Doppler was performed. The study was technically limited with all images being suboptimal in quality. Reason For Study: [place], cavitating lung masses History: [place], cavitating lung masses. Ordering Physician: TOMAS MART Performed By: Criss Harrison Interpretation Summary The left ventricle is normal in size. There is normal left ventricular wall thickness. LV EF is > than 60% Left ventricular systolic function is normal. Doppler measurements suggest normal left ventricular diastolic function The left ventricular wall motion is normal. There is no thrombus. There is no ventricular septal defect visualized. The right ventricle is not well visualized secondary to technical limitations The left atrial size is normal. The interatrial septum is intact with no evidence for an atrial septal defect. There is no evidence of mitral valve prolapse. There is no mitral valve stenosis. There is a moderate amount of mitral regurgitation (Eccentric Jet). Visually nav AV opens well, and no 'PANDA' or other evidence of LVOT obstruction.Most likely The Peak gradient across the AORTIC Valve is erroneous.Will have molecular technologist repeat the AV jet velocity. There is no tricuspid stenosis. There is a trace amount of tricuspid regurgitation There is mild pulmonary hypertension by echo RVSP is 39 to 44 mm of Hg , with RA mean of 5 to 10. There is no pericardial effusion. MMode/2D Measurements & Calculations RVDd: 3.1 cm LVIDd: 4.1 cm FS: 34.7 % Ao root diam: 3.1 cm IVSd: 1.1 cm LVIDs: 2.7 cm EDV(Teich): 74.3 ml LVPWd: 1.2 cm ESV(Teich): 26.4 ml Ao root area: 7.6 cm2 EF(Teich): 64.4 % LVOT diam: 2.0 cm LVOT area: 3.2 cm2 Doppler Measurements & Calculations MV E max delia: MV dec slope: Ao V2 max: LV V1 max P.9 cm/sec 368.4 cm/sec2 347.6 cm/sec 33.2 mmHg MV A max delia: MV dec time: Ao max PG: LV V1 mean P.4 cm/sec 0.26 sec 48.3 mmHg 16.0 mmHg MV E/A: 1.2 Ao V2 mean: LV V1 max: 236.6 cm/sec 288.1 cm/sec Ao mean PG: LV V1 mean: 25.7 mmHg 181.0 cm/sec Ao V2 VTI: 69.3 cmLV V1 VTI: 57.9 cm HUMBLE(I,D): 2.7 cm2 HUMBLE(V,D): 2.6 cm2 SV(LVOT): 183.7 mlPA V2 max: TR max delia: 111.6 cm/sec 291.8 cm/sec PA max P.0 mmHg TR max P.1 mmHg Left Ventricle The left ventricle is normal in size. There is normal left ventricular wall thickness. LV EF is > than 60%. Left ventricular systolic function is normal. Doppler measurements suggest normal left ventricular diastolic function. The left ventricular wall motion is normal. There is no thrombus. There is no ventricular septal defect visualized. Right Ventricle The right ventricle is not well visualized secondary to technical limitations. Atria The right atrium is normal. The left atrial size is normal. The interatrial septum is intact with no evidence for an atrial septal defect. Mitral Valve There is no evidence of mitral valve prolapse. There is no vegetation seen on the mitral valve. There is no mitral valve stenosis. There is a moderate amount of mitral regurgitation. (Eccentric Jet). Aortic Valve There is no aortic valvular vegetation. Visually nav AV opens well, and no 'PANDA' or other evidence of LVOT obstruction.Most likely The Peak gradient across the AORTIC Valve is erroneous.Will have molecular technologist repeat the AV jet velocity. Tricuspid Valve There is no tricuspid stenosis. There is a trace amount of tricuspid regurgitation. There is mild pulmonary hypertension by echo. RVSP is 39 to 44 mm of Hg , with RA mean of 5 to 10. Pulmonic Valve There is no pulmonic valvular stenosis. There is no pulmonic valvular regurgitation. Great Vessels The aortic root is normal size. Effusions There is no pericardial effusion. : TOMAS MRAT > Courtney Del Toro
[2017-04-09] MEDS: TRAZODONE HCL 50 MG TABLET PO SCH (21:22)
[2017-04-09] MEDS: OLANZAPINE 5 MG TABLET PO SCH (21:22)
[2017-04-10] MEDS: CYANOCOBALAMIN (VITAMIN B-12) 1,000 MCG TABLET PO SCH (10:22)
[2017-04-10] MEDS: MAGNESIUM OXIDE 400 MG TABLET PO SCH ×2 (10:23→19:00)
[2017-04-10] MEDS: FAMOTIDINE 20 MG TABLET PO SCH ×2 (10:23→22:02)
[2017-04-10] MEDS: FOLIC ACID 1 MG TABLET PO SCH (10:23)
[2017-04-10] MEDS: THIAMINE HCL 100 MG TABLET PO SCH (10:24)
[2017-04-10] MEDS: NICOTINE 21 MG/24 HR PATCH.TD24 TD SCH (10:27)
[2017-04-10] MEDS: OLANZAPINE 2.5 MG TABLET PO SCH (10:27)
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
[2017-04-10] MEDS: OLANZAPINE 5 MG TABLET PO SCH (22:02)
[2017-04-10] MEDS: TRAZODONE HCL 50 MG TABLET PO SCH (22:02)
--- NOTE | 2017-04-11 08:04 | RADIOLOGY REPORT (SQ) ---
EXAM DESCRIPTION: U/S THYROID/SFT TISS HD NECK COMPLETED DATE/TIME: 04/11/2017 7:16 am REASON FOR STUDY: Abnormal thyroid labs COMPARISON: CT chest 03/27/2017 MRI brain 03/28/2017 TECHNIQUE: Dynamic and static sow-scale images acquired of the thyroid gland. Selected additional c olor/power Doppler images recorded. All images stored to PACS. LIMITATIONS: None. FINDINGS: RIGHT LOBE: Small, 3.5 x 1.2 x 1.6 cm. Heterogeneous echotexture No cystic or solid mass es. LEFT LOBE: Small, 3.7 x 1.5 x 1.7 cm. Heterogeneous echotexture No cystic or solid masses. ISTHMUS: Normal thickness, 4 mm. Homogeneous echotexture. No cystic or solid masses. OTHER: No other significant finding. IMPRESSION: Small heterogeneous thyroid gland, question chronic thyroiditis TECHNICAL DOCUMENTATION: JOB ID: [id number] [employer]- All Rights Reserved
[2017-04-11] MEDS: OLANZAPINE 2.5 MG TABLET PO SCH (09:48)
[2017-04-11] MEDS: THIAMINE HCL 100 MG TABLET PO SCH (09:49)
[2017-04-11] MEDS: FOLIC ACID 1 MG TABLET PO SCH (09:49)
[2017-04-11] MEDS: FAMOTIDINE 20 MG TABLET PO SCH (09:49)
[2017-04-11] MEDS: MAGNESIUM OXIDE 400 MG TABLET PO SCH (09:49)
[2017-04-11] MEDS: NICOTINE 21 MG/24 HR PATCH.TD24 TD SCH (09:50)
[2017-04-11] MEDS: CYANOCOBALAMIN (VITAMIN B-12) 1,000 MCG TABLET PO SCH (09:50)
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
[2017-04-11 16:45] VITALS: BP 118/81
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
--- NOTE | 2017-04-11 19:02 | XCELERA REPORT ---
[address] [address] Transthoracic Echocardiogram Report Name: CLAYTON LAWSON Age: 57 yrs Gender: Male : 1960 Patient Status: Inpatient Patient Location: [address] [place] [id number] Study Date: 04/10/2017 02:42 PM Height: 69 in Weight: 147 lb BSA: 1.8 m2 Procedure: A limited two-dimensional transthoracic echocardiogram was performed (2D). Study Quality: Fair. Reason For Study: Assess For IHSS. History: Assess For IHSS. Ordering Physician: COURTNEY FORMAN Performed By: Criss Harrison Interpretation Summary Echocardiographic findings are consistent with previous aortic and mitral valve replacement. The posterior wall is 10mm and the IVS is 12. mm. Hence there is 'KESHAV'.There is systolic anterior motion of the anterior Mitral Valve leaflet.There is a resting gradient of 34 mm of Hg across the LVOT and this increases to 44 mm of Hg with Valsalve.Hence there is IHSS (HOCM) with mild resting and mild to moderate provacative gradient acroos the LVOT.Recommend antibiotics prior to dental GI, , procedures and surgeries.There is no Aortic Stenosis. Doppler Measurements & Calculations Ao V2 max: 366.8 cm/sec LV V1 max P.1 mmHg Ao max P.9 mmHg LV V1 max: 312.2 cm/sec Left Ventricle The posterior wall is 10mm and the IVS is 12. mm. Hence there is 'KESHAV'.There is systolic anterior motion of the anterior Mitral Valve leaflet.There is a resting gradient of 34 mm of Hg across the LVOT and this increases to 44 mm of Hg with Valsalve.Hence there is IHSS (HOCM) with mild resting and mild to moderate provacative gradient acroos the LVOT.Recommend antibiotics prior to dental GI, , procedures and surgeries.There is no Aortic Stenosis. : COURTNEY FORMAN > Courtney Forman
--- NOTE | 2017-04-12 19:19 | PDOC PROGRESS REPORT ---
Subjective Progress Note for:: 04/03/17 Subjective:: i feel better Reason For Visit: FALL,PNA OR CANCER Physical Exam Vital Signs: Temp Pulse Resp BP Pulse Ox 98.2 F 69 20 104/73 99 04/09/17 11:09 04/09/17 11:09 04/09/17 11:09 04/09/17 11:09 04/09/17 11:09 Intake & Output 04/08/17 04/09/17 04/10/17 06:59 06:59 06:59 Intake Total 2440 1950 Output Total 425 Balance 2014 1950 Weight 65.8 kg 66.8 kg General appearance: PRESENT: no acute distress, disheveled. ABSENT: mild distress, morbidly obese, severe distress, thin Head exam: PRESENT: atraumatic, normocephalic Eye exam: PRESENT: conjunctiva pale, EOMI. ABSENT: conjunctival injection, conjunctiva pink, nystagmus, periorbital swelling, scleral icterus Mouth exam: PRESENT: moist, neck supple, tongue midline. ABSENT: dry mucosa, laceration Neck exam: ABSENT: carotid bruit, JVD, lymphadenopathy, thyromegaly, tracheal deviation, tracheostomy Respiratory exam: PRESENT: decreased breath sounds, prolonged expiratory phas, rhonchi, symmetrical, unlabored. ABSENT: accessory muscle use, chest wall tenderness, clear to auscultation homero, crackles, retraction, stridor, tachypnea Cardiovascular exam: PRESENT: RRR, +S1, +S2 Pulses: PRESENT: normal radial pulses GI/Abdominal exam: PRESENT: diminished bowel sounds, soft Extremities exam: PRESENT: full ROM. ABSENT: clubbing, joint swelling Musculoskeletal exam: PRESENT: ambulatory, full ROM. ABSENT: deformity, dislocation Neurological exam: PRESENT: alert, awake Skin exam: PRESENT: dry, warm Results Laboratory Results: 03/30/17 06:22 04/05/17 07:09 04/05/17 07:09 Vitamin B1 242.6 H 04/03/17 10:16 Bronchial Washings Fungal Smear - Final 04/03/17 10:16 Bronchial Washings Fungal Smear - Final 03/27/17 03/27/17 03/28/17 16:17 22:15 04:17 Creatine Kinase 479 H 578 H 645 H Troponin I 03/28/17 04:17 Creatine Kinase Troponin I 0.015 Impressions: Chest CT 03/27/17 00:00 IMPRESSION: SPICULATED MASS IN THE LEFT LUNG APEX WITH CENTRAL CAVITARY COMPONENT. THIS IS SUSPICIOUS FOR MALIGNANCY. INFECTIOUS PROCESS WITH CAVITARY PNEUMONIA COULD BE A POSSIBILITY BUT IS LESS LIKELY. THERE IS ALSO A SPICULATED LESION IN THE RIGHT LUNG APEX WHICH MAY ALSO BE MALIGNANT IN NATURE OR COULD REPRESENT FOCAL SCAR. NO OTHER SIGNIFICANT FINDINGS, OTHER THAN CHRONIC EMPHYSEMATOUS CHANGES AND INTERSTITIAL SCARRING. Acute Abdomen Series 03/27/17 08:44 IMPRESSION: Nothing acute. No bowel dilatation. Small amount of fecal material. Head CT 03/27/17 08:59 IMPRESSION: Large subacute/ chronic nonhemorrhagic infarct left MCA territory. EVIDENCE OF ACUTE STROKE: See above. LEFT MCA Thoracic Spine CT 03/27/17 11:03 IMPRESSION: 1. Recent compression fracture of T9. 2. Left apical lung mass. Cervical Spine X-Ray 03/28/17 00:00 IMPRESSION: NO SIGNIFICANT RADIOGRAPHIC FINDING IN THE CERVICAL SPINE. Head MRI 03/28/17 14:55 IMPRESSION: MINIMAL MICROVASCULAR ISCHEMIC CHANGE. Old left MCA infarct. Other findings as noted above EVIDENCE OF ACUTE STROKE: NO. Carotid Doppler Study 03/30/17 00:00 IMPRESSION: NO HEMODYNAMICALLY SIGNIFICANT STENOSIS. Body Scan Nuclear Medicine 04/02/17 10:00 IMPRESSION: A bandlike increased uptake at T9 from acute or subacute infarction peptic Fluoroscopy 04/03/17 00:00 IMPRESSION: Intra procedural imaging and fluoro Chest X-Ray 04/03/17 13:03 IMPRESSION: 1. Worsening aeration left base. Otherwise stable chest. No pneumothorax. Assessment & Plan - Diagnosis (1) COPD (chronic obstructive pulmonary disease) Qualifiers: Emphysema type: centrilobular Is this a current diagnosis for this admission?: Yes Plan: Generic Name Dose Route Start Last Admin Trade Name Freq PRN Reason Stop Dose Admin Albuterol/Ipratropium 3 ml 03/27/17 15:25 Duoneb 3 Ml Ampul NEB 04/26/17 15:24 [id number] PRN SHORTNESS OF BREATH Nicotine 1 each 03/31/17 10:00 04/02/17 10:00 Nicoderm 21 Mg/24 Hr Transderm Patch TD 04/30/17 09:59 Not Given DAILY JIGNA (2) CVA, old, cognitive deficits Is this a current diagnosis for this admission?: Yes Plan: need informed consent from POA (3) Cavitating mass of lung Is this a current diagnosis for this admission?: Yes Plan: we will need ct/pet post dc (4) Tobacco abuse Is this a current diagnosis for this admission?: Yes Plan: transdermal nicotine
--- NOTE | 2017-04-12 19:23 | PDOC PROGRESS REPORT ---
Subjective Progress Note for:: 04/05/17 Subjective:: i feel better Reason For Visit: FALL,PNA OR CANCER Physical Exam Vital Signs: Temp Pulse Resp BP Pulse Ox 98.2 F 69 20 104/73 99 04/09/17 11:09 04/09/17 11:09 04/09/17 11:09 04/09/17 11:09 04/09/17 11:09 Intake & Output 04/08/17 04/09/17 04/10/17 06:59 06:59 06:59 Intake Total 2440 1950 Output Total 425 Balance 2014 1950 Weight 65.8 kg 66.8 kg General appearance: PRESENT: no acute distress, cooperative, disheveled, well- developed. ABSENT: mild distress, morbidly obese, severe distress Head exam: PRESENT: atraumatic, normocephalic Eye exam: PRESENT: conjunctiva pale, EOMI. ABSENT: conjunctival injection, conjunctiva pink, nystagmus, periorbital swelling, scleral icterus Mouth exam: PRESENT: moist, neck supple, tongue midline. ABSENT: dry mucosa, laceration Neck exam: ABSENT: carotid bruit, JVD, lymphadenopathy, thyromegaly, tracheal deviation, tracheostomy Respiratory exam: PRESENT: decreased breath sounds, prolonged expiratory phas, rhonchi, symmetrical, unlabored. ABSENT: accessory muscle use, chest wall tenderness, clear to auscultation homero, crackles, stridor, tachypnea Cardiovascular exam: PRESENT: RRR, +S1, +S2 Pulses: PRESENT: normal radial pulses GI/Abdominal exam: PRESENT: normal bowel sounds, soft. ABSENT: distended, guarding, mass, organolmegaly, rebound, tenderness Extremities exam: PRESENT: full ROM. ABSENT: clubbing, joint swelling Musculoskeletal exam: PRESENT: ambulatory, full ROM. ABSENT: deformity, dislocation Neurological exam: PRESENT: alert, awake Psychiatric exam: PRESENT: normal mood Skin exam: PRESENT: dry, warm Results Laboratory Results: 03/30/17 06:22 04/05/17 07:09 04/05/17 07:09 Vitamin B1 242.6 H 04/03/17 10:16 Bronchial Washings Fungal Smear - Final 04/03/17 10:16 Bronchial Washings Fungal Smear - Final 03/27/17 03/27/17 03/28/17 16:17 22:15 04:17 Creatine Kinase 479 H 578 H 645 H Troponin I 03/28/17 04:17 Creatine Kinase Troponin I 0.015 Impressions: Chest CT 03/27/17 00:00 IMPRESSION: SPICULATED MASS IN THE LEFT LUNG APEX WITH CENTRAL CAVITARY COMPONENT. THIS IS SUSPICIOUS FOR MALIGNANCY. INFECTIOUS PROCESS WITH CAVITARY PNEUMONIA COULD BE A POSSIBILITY BUT IS LESS LIKELY. THERE IS ALSO A SPICULATED LESION IN THE RIGHT LUNG APEX WHICH MAY ALSO BE MALIGNANT IN NATURE OR COULD REPRESENT FOCAL SCAR. NO OTHER SIGNIFICANT FINDINGS, OTHER THAN CHRONIC EMPHYSEMATOUS CHANGES AND INTERSTITIAL SCARRING. Acute Abdomen Series 03/27/17 08:44 IMPRESSION: Nothing acute. No bowel dilatation. Small amount of fecal material. Head CT 03/27/17 08:59 IMPRESSION: Large subacute/ chronic nonhemorrhagic infarct left MCA territory. EVIDENCE OF ACUTE STROKE: See above. LEFT MCA Thoracic Spine CT 03/27/17 11:03 IMPRESSION: 1. Recent compression fracture of T9. 2. Left apical lung mass. Cervical Spine X-Ray 03/28/17 00:00 IMPRESSION: NO SIGNIFICANT RADIOGRAPHIC FINDING IN THE CERVICAL SPINE. Head MRI 03/28/17 14:55 IMPRESSION: MINIMAL MICROVASCULAR ISCHEMIC CHANGE. Old left MCA infarct. Other findings as noted above EVIDENCE OF ACUTE STROKE: NO. Carotid Doppler Study 03/30/17 00:00 IMPRESSION: NO HEMODYNAMICALLY SIGNIFICANT STENOSIS. Body Scan Nuclear Medicine 04/02/17 10:00 IMPRESSION: A bandlike increased uptake at T9 from acute or subacute infarction peptic Fluoroscopy 04/03/17 00:00 IMPRESSION: Intra procedural imaging and fluoro Chest X-Ray 04/03/17 13:03 IMPRESSION: 1. Worsening aeration left base. Otherwise stable chest. No pneumothorax. Assessment & Plan - Diagnosis (1) COPD (chronic obstructive pulmonary disease) Qualifiers: Emphysema type: centrilobular Is this a current diagnosis for this admission?: Yes Plan: Generic Name Dose Route Start Last Admin Trade Name Freq PRN Reason Stop Dose Admin Albuterol/Ipratropium 3 ml 03/27/17 15:25 Duoneb 3 Ml Ampul NEB 04/26/17 15:24 [id number] PRN SHORTNESS OF BREATH Nicotine 1 each 03/31/17 10:00 04/02/17 10:00 Nicoderm 21 Mg/24 Hr Transderm Patch TD 04/30/17 09:59 Not Given DAILY JIGNA (2) CVA, old, cognitive deficits Is this a current diagnosis for this admission?: Yes Plan: need informed consent from POA (3) Cavitating mass of lung Is this a current diagnosis for this admission?: Yes Plan: we will need ct/pet post dc (4) Tobacco abuse Is this a current diagnosis for this admission?: Yes Plan: transdermal nicotine
--- NOTE | 2017-04-12 19:26 | PDOC PROGRESS REPORT ---
Subjective Progress Note for:: 04/06/17 Subjective:: i feel better Reason For Visit: FALL,PNA OR CANCER Physical Exam Vital Signs: Temp Pulse Resp BP Pulse Ox 98.2 F 69 20 104/73 99 04/09/17 11:09 04/09/17 11:09 04/09/17 11:09 04/09/17 11:09 04/09/17 11:09 Intake & Output 04/08/17 04/09/17 04/10/17 06:59 06:59 06:59 Intake Total 2440 1950 Output Total 425 Balance 2014 1950 Weight 65.8 kg 66.8 kg General appearance: PRESENT: no acute distress, cooperative, disheveled, well- developed. ABSENT: mild distress, morbidly obese, severe distress Head exam: PRESENT: atraumatic, normocephalic Eye exam: PRESENT: conjunctiva pale, EOMI. ABSENT: conjunctival injection, conjunctiva pink, nystagmus, periorbital swelling, scleral icterus Mouth exam: PRESENT: moist, neck supple, tongue midline. ABSENT: dry mucosa, laceration Neck exam: ABSENT: carotid bruit, JVD, lymphadenopathy, thyromegaly, tracheal deviation, tracheostomy Respiratory exam: PRESENT: decreased breath sounds, prolonged expiratory phas, rhonchi, symmetrical, unlabored. ABSENT: accessory muscle use, chest wall tenderness, clear to auscultation homero, crackles, rales, retraction, stridor, tachypnea Cardiovascular exam: PRESENT: RRR, +S1, +S2 Pulses: PRESENT: normal radial pulses GI/Abdominal exam: PRESENT: diminished bowel sounds, soft Extremities exam: PRESENT: full ROM. ABSENT: clubbing, joint swelling Musculoskeletal exam: PRESENT: ambulatory, full ROM. ABSENT: deformity, dislocation Neurological exam: PRESENT: alert, awake Psychiatric exam: PRESENT: normal mood Skin exam: PRESENT: dry, warm Results Laboratory Results: 03/30/17 06:22 04/05/17 07:09 04/05/17 07:09 Vitamin B1 242.6 H 04/03/17 10:16 Bronchial Washings Fungal Smear - Final 04/03/17 10:16 Bronchial Washings Fungal Smear - Final 03/27/17 03/27/17 03/28/17 16:17 22:15 04:17 Creatine Kinase 479 H 578 H 645 H Troponin I 03/28/17 04:17 Creatine Kinase Troponin I 0.015 Impressions: Chest CT 03/27/17 00:00 IMPRESSION: SPICULATED MASS IN THE LEFT LUNG APEX WITH CENTRAL CAVITARY COMPONENT. THIS IS SUSPICIOUS FOR MALIGNANCY. INFECTIOUS PROCESS WITH CAVITARY PNEUMONIA COULD BE A POSSIBILITY BUT IS LESS LIKELY. THERE IS ALSO A SPICULATED LESION IN THE RIGHT LUNG APEX WHICH MAY ALSO BE MALIGNANT IN NATURE OR COULD REPRESENT FOCAL SCAR. NO OTHER SIGNIFICANT FINDINGS, OTHER THAN CHRONIC EMPHYSEMATOUS CHANGES AND INTERSTITIAL SCARRING. Acute Abdomen Series 03/27/17 08:44 IMPRESSION: Nothing acute. No bowel dilatation. Small amount of fecal material. Head CT 03/27/17 08:59 IMPRESSION: Large subacute/ chronic nonhemorrhagic infarct left MCA territory. EVIDENCE OF ACUTE STROKE: See above. LEFT MCA Thoracic Spine CT 03/27/17 11:03 IMPRESSION: 1. Recent compression fracture of T9. 2. Left apical lung mass. Cervical Spine X-Ray 03/28/17 00:00 IMPRESSION: NO SIGNIFICANT RADIOGRAPHIC FINDING IN THE CERVICAL SPINE. Head MRI 03/28/17 14:55 IMPRESSION: MINIMAL MICROVASCULAR ISCHEMIC CHANGE. Old left MCA infarct. Other findings as noted above EVIDENCE OF ACUTE STROKE: NO. Carotid Doppler Study 03/30/17 00:00 IMPRESSION: NO HEMODYNAMICALLY SIGNIFICANT STENOSIS. Body Scan Nuclear Medicine 04/02/17 10:00 IMPRESSION: A bandlike increased uptake at T9 from acute or subacute infarction peptic Fluoroscopy 04/03/17 00:00 IMPRESSION: Intra procedural imaging and fluoro Chest X-Ray 04/03/17 13:03 IMPRESSION: 1. Worsening aeration left base. Otherwise stable chest. No pneumothorax. Assessment & Plan - Diagnosis (1) COPD (chronic obstructive pulmonary disease) Qualifiers: Emphysema type: centrilobular Is this a current diagnosis for this admission?: Yes Plan: Generic Name Dose Route Start Last Admin Trade Name Freq PRN Reason Stop Dose Admin Albuterol/Ipratropium 3 ml 03/27/17 15:25 Duoneb 3 Ml Ampul NEB 04/26/17 15:24 [id number] PRN SHORTNESS OF BREATH Nicotine 1 each 03/31/17 10:00 04/02/17 10:00 Nicoderm 21 Mg/24 Hr Transderm Patch TD 04/30/17 09:59 Not Given DAILY JIGNA (2) CVA, old, cognitive deficits Is this a current diagnosis for this admission?: Yes Plan: need informed consent from POA (3) Cavitating mass of lung Is this a current diagnosis for this admission?: Yes Plan: we will need ct/pet post dc (4) Tobacco abuse Is this a current diagnosis for this admission?: Yes Plan: transdermal nicotine
--- NOTE | 2017-04-12 19:30 | PDOC PROGRESS REPORT ---
Subjective Progress Note for:: 04/11/17 Subjective:: i feel better Reason For Visit: SYNCOPE,LEUKOCYTOSIS Physical Exam Vital Signs: Temp Pulse Resp BP Pulse Ox 98.3 F 92 17 118/81 97 04/11/17 15:43 04/11/17 15:43 04/11/17 15:43 04/11/17 15:43 04/11/17 15:43 Intake & Output 04/11/17 04/12/17 04/13/17 06:59 06:59 06:59 Intake Total 2055 857 Balance 2055 857 Weight 67.1 kg General appearance: PRESENT: no acute distress, cooperative, disheveled, well- developed. ABSENT: mild distress, morbidly obese, severe distress Head exam: PRESENT: atraumatic, normocephalic Eye exam: PRESENT: conjunctiva pale, EOMI. ABSENT: conjunctival injection, conjunctiva pink, nystagmus, periorbital swelling, scleral icterus Mouth exam: PRESENT: moist, neck supple, tongue midline. ABSENT: dry mucosa, laceration Neck exam: ABSENT: carotid bruit, JVD, lymphadenopathy, thyromegaly, tracheal deviation, tracheostomy Respiratory exam: PRESENT: decreased breath sounds, prolonged expiratory phas, rhonchi, symmetrical, unlabored. ABSENT: accessory muscle use, chest wall tenderness, clear to auscultation homero, crackles, rales, retraction, stridor, tachypnea Cardiovascular exam: PRESENT: RRR, +S1, +S2 Pulses: PRESENT: normal radial pulses GI/Abdominal exam: PRESENT: diminished bowel sounds, soft Extremities exam: PRESENT: full ROM. ABSENT: clubbing, joint swelling Musculoskeletal exam: PRESENT: ambulatory, full ROM. ABSENT: deformity, dislocation Neurological exam: PRESENT: alert, awake Psychiatric exam: PRESENT: normal mood Skin exam: PRESENT: dry, warm Results Laboratory Results: 03/30/17 06:22 04/05/17 07:09 03/27/17 03/27/17 03/28/17 16:17 22:15 04:17 Creatine Kinase 479 H 578 H 645 H Troponin I 03/28/17 04:17 Creatine Kinase Troponin I 0.015 Impressions: Chest CT 03/27/17 00:00 IMPRESSION: SPICULATED MASS IN THE LEFT LUNG APEX WITH CENTRAL CAVITARY COMPONENT. THIS IS SUSPICIOUS FOR MALIGNANCY. INFECTIOUS PROCESS WITH CAVITARY PNEUMONIA COULD BE A POSSIBILITY BUT IS LESS LIKELY. THERE IS ALSO A SPICULATED LESION IN THE RIGHT LUNG APEX WHICH MAY ALSO BE MALIGNANT IN NATURE OR COULD REPRESENT FOCAL SCAR. NO OTHER SIGNIFICANT FINDINGS, OTHER THAN CHRONIC EMPHYSEMATOUS CHANGES AND INTERSTITIAL SCARRING. Acute Abdomen Series 03/27/17 08:44 IMPRESSION: Nothing acute. No bowel dilatation. Small amount of fecal material. Head CT 03/27/17 08:59 IMPRESSION: Large subacute/ chronic nonhemorrhagic infarct left MCA territory. EVIDENCE OF ACUTE STROKE: See above. LEFT MCA Thoracic Spine CT 03/27/17 11:03 IMPRESSION: 1. Recent compression fracture of T9. 2. Left apical lung mass. Cervical Spine X-Ray 03/28/17 00:00 IMPRESSION: NO SIGNIFICANT RADIOGRAPHIC FINDING IN THE CERVICAL SPINE. Head MRI 03/28/17 14:55 IMPRESSION: MINIMAL MICROVASCULAR ISCHEMIC CHANGE. Old left MCA infarct. Other findings as noted above EVIDENCE OF ACUTE STROKE: NO. Carotid Doppler Study 03/30/17 00:00 IMPRESSION: NO HEMODYNAMICALLY SIGNIFICANT STENOSIS. Body Scan Nuclear Medicine 04/02/17 10:00 IMPRESSION: A bandlike increased uptake at T9 from acute or subacute infarction peptic Fluoroscopy 04/03/17 00:00 IMPRESSION: Intra procedural imaging and fluoro Chest X-Ray 04/03/17 13:03 IMPRESSION: 1. Worsening aeration left base. Otherwise stable chest. No pneumothorax. Thyroid Ultrasound 04/11/17 00:00 IMPRESSION: Small heterogeneous thyroid gland, question chronic thyroiditis Assessment & Plan - Diagnosis (1) COPD (chronic obstructive pulmonary disease) Qualifiers: Emphysema type: centrilobular Is this a current diagnosis for this admission?: Yes Plan: Generic Name Dose Route Start Last Admin Trade Name Freq PRN Reason Stop Dose Admin Albuterol/Ipratropium 3 ml 03/27/17 15:25 Duoneb 3 Ml Ampul NEB 04/26/17 15:24 [id number] PRN SHORTNESS OF BREATH Nicotine 1 each 03/31/17 10:00 04/02/17 10:00 Nicoderm 21 Mg/24 Hr Transderm Patch TD 04/30/17 09:59 Not Given DAILY JIGNA (2) CVA, old, cognitive deficits Is this a current diagnosis for this admission?: Yes Plan: need informed consent from POA (3) Cavitating mass of lung Is this a current diagnosis for this admission?: Yes Plan: we will need ct/pet post dc (4) Tobacco abuse Is this a current diagnosis for this admission?: Yes Plan: transdermal nicotine
== END 2017-04-11 18:00 | disposition left against medical advice (07) | DRG 167 ==
LOC: ER 08:23 → EH 15:21 → 3N 18:30 → 4N 04-06 18:34
PROVIDERS: ADMIT Internal Medicine; ATTEND Internal Medicine
PROC: 0BBG8ZX Excision of Left Upper Lung Lobe, Via Natural or Artificial Opening Endoscopic, Diagnostic (ICD-10-PCS; principal; 2017-04-03 09:30)
PROC: 0B9G8ZX Drainage of Left Upper Lung Lobe, Via Natural or Artificial Opening Endoscopic, Diagnostic (ICD-10-PCS; 2017-04-03 09:30)
DX: J69.0 Pneumonitis due to inhalation of food and vomit (principal); S22.070A Wedge compression fracture of T9-T10 vertebra, initial encounter for closed fracture; E87.2 Acidosis; N17.9 Acute kidney failure, unspecified; I69.351 Hemiplegia and hemiparesis following cerebral infarction affecting right dominant side; T79.6XXA Traumatic ischemia of muscle, initial encounter; W19.XXXA Unspecified fall, initial encounter; Y93.9 Activity, unspecified; Y92.019 Unspecified place in single-family (private) house as the place of occurrence of the external cause; Y99.9 Unspecified external cause status; G40.909 Epilepsy, unspecified, not intractable, without status epilepticus; E86.0 Dehydration; E87.6 Hypokalemia; E83.42 Hypomagnesemia; D64.9 Anemia, unspecified; J43.2 Centrilobular emphysema; F10.10 Alcohol abuse, uncomplicated; R91.8 Other nonspecific abnormal finding of lung field; R94.6 Abnormal results of thyroid function studies; I34.0 Nonrheumatic mitral (valve) insufficiency; Z66 Do not resuscitate; F17.210 Nicotine dependence, cigarettes, uncomplicated; Z93.3 Colostomy status
CPT/HCPCS: 31624; 31628; 36415; 36600; 51701; 520; 70450; 70551; 71045; 71250; 72040; 72128; 74022; 76536; 78306; 80048; 80053; 80307; 81001; 82140; 82550; 82553; 82607; 82746; 82803; 83605; 83690; 83735; 83930; 83935; 84100; 84425; 84439; 84443; 84481; 84484; 85025; 85610; 85730; 87015; 87040; 87070; 87077; 87086; 87101; 87116; 87205; 87206; 88305; 89050; 93005; 93010; 93306; 93321; 93880; 95819; 96361; 96365; 96375; 99285; A9561; J0171; J0330; J0696; J1100; J1956; J2060; J2250; J2270; J2405; J2543; J2704; J3010; J3411; J3475; J3490; J7030; J7050; Q9969